=== PATIENT | female | born 1965 | race African-American/Black ===

== ENCOUNTER 2016-07-11 17:25 | Inpatient (IN) | payer BC, OTHER ==
[~2016-07-11] VITALS: Ht 162.6 cm; Wt 106.3 kg
[~2016-07-11 17:25] MED LIST: ASPI-630 PO; CRESTOR40 MG PO; FISH1CAP PO; LOSA25TA4 PO; MUSCLE RELAXANT; NITR0.4T22 SL; SERT50TA8 PO; VITA100T5 PO
--- NOTE | 2016-07-11 17:47 | RAD ---
PROCEDURE CT head without contrast dated 07/11/2016. HISTORY Numbness to both hands. Left facial numbness for 24 hours. Possible CVA. TECHNIQUE Contiguous axial imaging of the head was performed from skull base to vertex. No contrast administered.Exposure: One or more of the following individualized dose reduction techniques were utilized for this exam: 1. Automated exposure control. 2. Adjustment of the mA and/or kV according to patient size. 3. Use of iterative reconstruction technique. COMPARISON None. FINDINGS Ventricles and sulci are within normal limits for age. No midline shift or mass effect. Brain parenchyma is of normal attenuation. No hemorrhage or extra-axial collection. Posterior fossa and brainstem are unremarkable. Visualized paranasal sinuses and mastoid air cells are clear. No acute calvarial abnormality. No hyperdense vessels are seen. Insular ribbons are symmetric. IMPRESSION - No evidence of acute intracranial hemorrhage or mass. - No CT evidence of acute CVA. If there is persistent clinical concern for evolving infarct, MRI would better evaluate. Electronically signed by: Michele Aguilar (July 11, 2016 17:46:04)
[2016-07-11] MEDS ORDERED: IV NORMAL SALINE 1000ML BAG 1,000 ML IV ONE (18:00)
--- NOTE | 2016-07-11 18:06 | PHYS DOC ---
Past Medical History Past Medical History: Arrhythmia, Hypertension Additional Past Medical Histor: Bundle Branch Block Past Surgical History: Hysterectomy Additional Past Surgical Histo: hernia, bladder Alcohol Use: None Drug Use: None Adult General Chief Complaint Chief Complaint: NEURO SYMPTOMS/DEFICITS HPI HPI This is a 51-year-old female who's having subjective symptoms of numbness in both of her upper extremities as well as the left side of her face. She denies any significant weakness. She does have some dizziness and lightheadedness as well. All her symptoms started approximately 30-40 minutes prior to arrival. She did state she had an episode that was similar to this that lasted approximately 10 minutes yesterday. She denies any chest pain with her symptoms. She denies any significant weakness in any of her extremities. Review of Systems Review of Systems Constitutional: Denies fever or chills [] Eyes: Denies change in visual acuity, redness, or eye pain [] HENT: Denies nasal congestion or sore throat [] Respiratory: Denies cough or shortness of breath [] Cardiovascular: No additional information not addressed in HPI [] GI: Denies abdominal pain, nausea, vomiting, bloody stools or diarrhea [] : Denies dysuria or hematuria [] Musculoskeletal: Denies back pain or joint pain [] Integument: Denies rash or skin lesions [] Neurologic: Denies headache, denies focal weakness, has sensory changes [] Endocrine: Denies polyuria or polydipsia [] Current Medications Current Medications Current Medications Medications (Trade) Dose Ordered Sig/[facility] Start Time Stop Time Status Last Admin Dose Admin Aspirin (Jordy Aspirin) 325 mg 1X ONCE 07/11/16 18:45 07/11/16 18:46 DC 07/11/16 18:50 325 MG Meclizine HCl (Antivert) 50 mg 1X ONCE 07/11/16 18:45 07/11/16 18:46 DC 07/11/16 18:50 50 MG Ondansetron HCl (Zofran) 4 mg PRN Q8HRS PRN 07/11/16 19:00 07/12/16 18:59 Sodium Chloride 1,000 ml @ 125 mls/hr Q8H 07/11/16 18:54 07/12/16 18:53 07/11/16 20:26 125 MLS/HR Allergies Allergies Physical Exam Physical Exam Constitutional: Well developed, well nourished, no acute distress, non-toxic appearance. [] HENT: Normocephalic, atraumatic, bilateral external ears normal, oropharynx moist, no oral exudates, nose normal. [] Eyes: PERRLA, EOMI, conjunctiva normal, no discharge. [] Neck: Normal range of motion, no tenderness, supple, no stridor. [] Cardiovascular:Heart rate regular rhythm, no murmur [] Lungs & Thorax: Bilateral breath sounds clear to auscultation [] Abdomen: Bowel sounds normal, soft, no tenderness, no masses, no pulsatile masses. [] Skin: Warm, dry, no erythema, no rash. [] Back: No tenderness, no CVA tenderness. [] Extremities: No tenderness, no cyanosis, no clubbing, ROM intact, no edema. [] Neurologic: Alert and oriented X 3, normal motor function, normal sensory function, no focal deficits noted. [] Psychologic: Affect normal, judgement normal, mood normal. [] Current Patient Data Vital Signs Vital Signs Date Time Temp Pulse Resp B/P (MAP) Pulse Ox O2 Delivery O2 Flow Rate FiO2 07/11/16 18:49 88 20 147/74 (98) 96 Room Air 07/11/16 17:40 98.8 98.8 Lab Values Laboratory Tests Test 07/11/16 17:46 07/11/16 18:07 Glucose (Fingerstick) 118 mg/dL (70-99) H White Blood Count 7.5 x10^3/uL (4.0-11.0) Red Blood Count 4.40 x10^6/uL (3.50-5.40) Hemoglobin 12.4 g/dL (12.0-15.5) Hematocrit 36.8 % (36.0-47.0) Mean Corpuscular Volume 84 fL (79-100) Mean Corpuscular Hemoglobin 28 pg (25-35) Mean Corpuscular Hemoglobin Concent 34 g/dL (31-37) Red Cell Distribution Width 13.9 % (11.5-14.5) Platelet Count 198 x10^3/uL (140-400) Neutrophils (%) (Auto) 61 % (31-73) Lymphocytes (%) (Auto) 33 % (24-48) Monocytes (%) (Auto) 4 % (0-9) Eosinophils (%) (Auto) 1 % (0-3) Basophils (%) (Auto) 1 % (0-3) Neutrophils # (Auto) 4.6 x10^3uL (1.8-7.7) Lymphocytes # (Auto) 2.4 x10^3/uL (1.0-4.8) Monocytes # (Auto) 0.3 x10^3/uL (0.0-1.1) Eosinophils # (Auto) 0.1 x10^3/uL (0.0-0.7) Basophils # (Auto) 0.1 x10^3/uL (0.0-0.2) Sodium Level 141 mmol/L (136-145) Potassium Level 3.8 mmol/L (3.5-5.1) Chloride Level 106 mmol/L (98-107) Carbon Dioxide Level 26 mmol/L (21-32) Anion Gap 9 (6-14) Blood Urea Nitrogen 14 mg/dL (7-20) Creatinine 1.0 mg/dL (0.6-1.0) Estimated GFR (Cockcroft-Gault) 70.2 Glucose Level 116 mg/dL (70-99) H Calcium Level 9.4 mg/dL (8.5-10.1) Troponin I Quantitative < 0.017 ng/mL (0.000-0.055) Laboratory Tests 07/11/16 18:07 Laboratory Tests 07/11/16 18:07 EKG EKG EKG as interpreted by me shows a sinus rhythm with rate of 97 bpm. There is no acute injury pattern. There is a non-specific intraventricular block. QTc interval is slightly prolonged at 490 ms. Radiology/Procedures Radiology/Procedures PROCEDURE CT head without contrast dated 07/11/2016. HISTORY Numbness to both hands. Left facial numbness for 24 hours. Possible CVA. TECHNIQUE Contiguous axial imaging of the head was performed from skull base to vertex. No contrast administered.Exposure: One or more of the following individualized dose reduction techniques were utilized for this exam: 1. Automated exposure control. 2. Adjustment of the mA and/or kV according to patient size. 3. Use of iterative reconstruction technique. COMPARISON None. FINDINGS Ventricles and sulci are within normal limits for age. No midline shift or mass effect. Brain parenchyma is of normal attenuation. No hemorrhage or extra-axial collection. Posterior fossa and brainstem are unremarkable. Visualized paranasal sinuses and mastoid air cells are clear. No acute calvarial abnormality. No hyperdense vessels are seen. Insular ribbons are symmetric. IMPRESSION - No evidence of acute intracranial hemorrhage or mass. - No CT evidence of acute CVA. If there is persistent clinical concern for evolving infarct, MRI would better evaluate. Portable one view of the chest as interpreted by me reveals no acute cardiopulmonary process. Course & Med Decision Making Course & Med Decision Making Pertinent Labs and Imaging studies reviewed. (See chart for details) This 51-year-old female who came in as an acute stroke alert and numbness to her bilateral upper extremities and left side of her face has a CT of her head that did not reveal any acute abnormality. Her NIH scale was 0. I do not deem her to be a TPA candidate in light of her physical exam findings. She will be admitted with neurology consult for her persisting numbness in her upper extremities. Her EKG and chest film were unremarkable. Laboratory workup was also essentially unremarkable. Patient was given a 325 mg aspirin and meclizine. Neurology consult was placed. I discussed the case with the admitting physician, Dr. Obey Azevedo, who agreed with this assessment and plan and agreed to accept the patient for further evaluation. Dragon Disclaimer Dragon Disclaimer This electronic medical record was generated, in whole or in part, using a voice recognition dictation system. Departure Departure Impression: Primary Impression: Paresthesia Additional Impression: Headache Disposition: ADMITTED INPATIENT Admitting Physician: Obey Azevedo Condition: STABLE Referrals: OBEY AZEVEDO MD (PCP) Problem Qualifiers BETSY HURTADO DO July 11, 2016 18:06
[2016-07-11 18:22] LABS: BASO # 0.1 x10^3/uL (0.0-0.2); BASO % 1 % (0-3); EOS % 1 % (0-3); HEMATOCRIT 36.8 % (36.0-47.0); HEMOGLOBIN 12.4 g/dL (12.0-15.5); LYMPH # 2.4 x10^3/uL (1.0-4.8); LYMPH % 33 % (24-48); MEAN CORPUSCULAR HEMOGLOBIN 28 pg (25-35); MEAN CORPUSCULAR HGB CONC 34 g/dL (31-37); MEAN CORPUSCULAR VOLUME 84 fL (79-100); MONO % 4 % (0-9); NEUT % 61 % (31-73); PLATELET COUNT 198 x10^3/uL (140-400); RED CELL DISTRIBUTION WIDTH 13.9 % (11.5-14.5); WHITE BLOOD COUNT 7.5 x10^3/uL (4.0-11.0)
[2016-07-11 18:26] LABS: CALCIUM 9.4 mg/dL (8.5-10.1); GFR 70.2; POTASSIUM 3.8 mmol/L (3.5-5.1)
[2016-07-11] MEDS ORDERED: MECLIZINE HCL 12.5 MG TABLET. PO ONE (18:45)
[2016-07-11] MEDS ORDERED: ASPIRIN 325 MG TABLET PO ONE (18:45)
[2016-07-11] MEDS ORDERED: ONDANSETRON PF 4 MG/2 ML VIAL. IV PRN (19:00)
[2016-07-11] MEDS ORDERED: ZIPR20CA2 PO (19:59)
[2016-07-11] MEDS ORDERED: LAMO100T PO (19:59)
[2016-07-11] MEDS ORDERED: DULO60CA6 PO (19:59)
[2016-07-11] MEDS ORDERED: FLUT16SP NS (19:59)
[2016-07-11] MEDS ORDERED: ATOR20TA58 PO (19:59)
[2016-07-11 20:00] VITALS: BP 135/81
[2016-07-11] MEDS ORDERED: IBUPROFEN 400 MG TABLET. PO PRN (20:15)
[2016-07-11] MEDS: IV NORMAL SALINE 1000ML BAG 1,000 ML IV SCH (20:26)
[2016-07-11] MEDS ORDERED: ATORVASTATIN CALCIUM 20 MG TABLET PO SCH (21:00)
[2016-07-11 23:00] VITALS: BP 106/67
[2016-07-12] MEDS: IV NORMAL SALINE 1000ML BAG 1,000 ML IV SCH (02:54)
[2016-07-12 03:00] VITALS: BP 118/65
[2016-07-12 05:16] LABS: BASO # 0.1 x10^3/uL (0.0-0.2); BASO % 1 % (0-3); EOS % 3 % (0-3); HEMATOCRIT 33.7 % (36.0-47.0); HEMOGLOBIN 11.3 g/dL (12.0-15.5); LYMPH # 2.3 x10^3/uL (1.0-4.8); LYMPH % 41 % (24-48); MEAN CORPUSCULAR HEMOGLOBIN 28 pg (25-35); MEAN CORPUSCULAR HGB CONC 33 g/dL (31-37); MEAN CORPUSCULAR VOLUME 85 fL (79-100); MONO % 5 % (0-9); NEUT % 51 % (31-73); PLATELET COUNT 172 x10^3/uL (140-400); RED BLOOD COUNT 3.97 x10^6/uL (3.50-5.40); RED CELL DISTRIBUTION WIDTH 13.9 % (11.5-14.5); WHITE BLOOD COUNT 5.7 x10^3/uL (4.0-11.0)
[2016-07-12 05:42] LABS: CALCIUM 8.3 mg/dL (8.5-10.1); CREATININE 0.9 mg/dL (0.6-1.0); GFR 79.3; POTASSIUM 4.1 mmol/L (3.5-5.1)
--- NOTE | 2016-07-12 06:16 | EKG ---
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
[2016-07-12 07:00] VITALS: BP 111/63
[2016-07-12] MEDS ORDERED: NITROGLYCERIN SUBLINGUAL 0.4 MG BOTTLE OF 25. SL PRN (08:00)
--- NOTE | 2016-07-12 08:17 | DISCH ---
DISCHARGE INSTRUCTIONS Condition on Discharge Condition on Discharge: Stable Activity After Discharge Activity Instructions for Disc: No restrictions Diet after Discharge Diet after Discharge: Regular Follow-Up Follow up with: 1-2 weeks JANAK WADDELL MD July 12, 2016 08:17
--- NOTE | 2016-07-12 08:22 | PDOC ---
Provider Note Provider Note [id number] JANAK WADDELL MD July 12, 2016 08:22
[2016-07-12] MEDS ORDERED: LOSARTAN POTASSIUM 25 MG TABLET. PO SCH (09:00)
[2016-07-12] MEDS ORDERED: FLUTICASONE 50MCG/NASAL SPRAY 16GM BOTTLE. NS SCH (09:00)
[2016-07-12] MEDS ORDERED: ASPIRIN CHEWABLE 81 MG TABLET. PO SCH (09:00)
[2016-07-12] MEDS ORDERED: DULoxetine HCL 30 MG CAPSULE.DR PO SCH (09:00)
[2016-07-12] MEDS ORDERED: SERTRALINE 50 MG TABLET. PO SCH (09:00)
[2016-07-12] MEDS ORDERED: lamoTRIgine 100 MG TABLET. PO SCH (09:00)
--- NOTE | 2016-07-12 09:00 | RAD ---
EXAM: CHEST 1 VIEW History: Strokelike symptoms COMPARISON: 01/01/2014 TECHNIQUE: Single portable radiograph of the chest FINDINGS: The cardiac silhouette is unremarkable. The lungs are clear bilaterally. The costophrenic sulci are clear and well demarcated. IMPRESSION: No radiographic evidence of an acute cardiopulmonary process.
--- NOTE | 2016-07-12 09:20 | SSS ---
ADMIT DATE: 07/12/2016 CHIEF COMPLAINT: Headache and tingling in both hands. HISTORY OF PRESENT ILLNESS: A 51-year-old black female with history of bipolar disorder and mild hypertension who came in with some tingling and numbness in both hands on and off over the last several hours. There was a little bit of numbness in the left side of the face at times and also some tension-type headache that she has had for several days. Physical exam was unremarkable. CT scan of the head was normal as was the CBC and chemistry profile and cardiac enzymes. The symptoms came and went, and she is feeling better this morning without any specific neurologic symptoms, and sensory exam was normal. This was not felt to be related to acute stroke or intracranial process, though more likely carpal tunnel, and she is comfortable to be followed as an outpatient. FINAL DIAGNOSES: 1. Bilateral paresthesias of the hands, suspected carpal tunnel syndrome. 2. Bilateral headache, felt to be tension headache. OPERATIONS, PROCEDURES, COMPLICATIONS, AND CONSULTATIONS: None. DISPOSITION: She will be seen in our office in 1-2 weeks for evaluation for possible carpal tunnel symptoms. She will stop taking the daily aspirin as she has greater risk than benefit, having never had a heart attack, stroke, or TIA and is a nondiabetic and nonsmoker. Again, the CT scan of the head was normal. Regular diet with no added salt. She will follow blood pressure as an outpatient as she may no longer need the losartan that she takes. Prognosis is good. JANAK WADDELL MD DR: NAGI/samra JOB#: [id number] / [id number]
[2016-07-12 11:00] VITALS: BP 116/70
--- NOTE | 2016-07-12 11:56 | PDOC2 ---
NEUROLOGY CONSULT Date of Admission Date of Admission DATE: 07/12/16 TIME: 11:50 Reason for Consult Reason for Consult: Paresthesias Referring Physician Referring Physician: Dr. Azevedo Source Source: Chart review, Patient History of Present Illness History of Present Illness The patient is a 51-year-old right-handed female admitted with symptoms of left facial numbness and bilateral hands and feet numbness which started 2 nights ago. She denies headache, diplopia, dysphagia, dysarthria, cognitive problems, history of stroke, seizure, or head injury. She is feeling better this morning. Past Medical History Cardiovascular: HTN, Other ( angina, hypotension) CENTRAL NERVOUS SYSTEM: Migraine (More tension headaches, than migraines) GI: GERD, Hemorrhoids Psych: Anxiety, Depression Past Surgical History Past Surgical History: Hernia Repair ( umbilical), Hysterectomy, Other ( rectal ) Family History Family History: No pertinent hx Social History Social History , no tobacco or alcohol Current Medications Current Medications Current Medications Sodium Chloride 1,000 ml @ 1,000 mls/hr 1X ONCE IV Last administered on 18:28; Start 07/11/16 at 18:00; Stop 07/12/16 at 08:00; Status DC Aspirin (Jordy Aspirin) 325 mg 1X ONCE PO Last administered on 07/11/16 18:50 ; Start 07/11/16 at 18:45; Stop 07/11/16 at 18:46; Status DC Meclizine HCl (Antivert) 50 mg 1X ONCE PO Last administered on 07/11/16 18:50 ; Start 07/11/16 at 18:45; Stop 07/11/16 at 18:46; Status DC Ondansetron HCl (Zofran) 4 mg PRN Q8HRS PRN IV NAUSEA/VOMITING; Start 07/11/16 at 19:00; Stop 07/12/16 at 18:59 Sodium Chloride 1,000 ml @ 125 mls/hr Q8H IV Last administered on 07/12/16 02 :54; Start 07/11/16 at 18:54; Stop 07/12/16 at 08:00; Status DC Atorvastatin Calcium (Lipitor) 20 mg QHS PO ; Start 07/11/16 at 21:00 Fluticasone Propionate (Flonase) 2 spray DAILY NS Last administered on 08:00; Start 07/12/16 at 09:00 Lamotrigine (LaMICtal) 100 mg DAILY PO Last administered on 07/12/16 08:00; Start 07/12/16 at 09:00 Ziprasidone (Geodon) 20 mg DAILYWSUP PO ; Start 07/12/16 at 17:00 Duloxetine HCl (Cymbalta) 60 mg DAILY PO Last administered on 07/12/16 08:00; Start 07/12/16 at 09:00 Ibuprofen (Motrin) 400 mg PRN Q6HRS PRN PO INFLAMMATION Last administered on 11:28; Start 07/11/16 at 20:15 Aspirin (Children'S Aspirin) 81 mg DAILY PO ; Start 07/12/16 at 09:00 Losartan Potassium (Cozaar) 25 mg DAILY PO ; Start 07/12/16 at 09:00 Nitroglycerin (Nitrostat) 0.4 mg PRN Q5MIN PRN SL CHEST PAIN; Start 07/12/16 at 08:00 Sertraline HCl (Zoloft) 50 mg DAILY PO ; Start 07/12/16 at 09:00 Active Scripts Active Reported Fluticasone Propionate Nasal [place] (Fluticasone Propionate) 16 Gm [place].susp 2 [place] NS DAILY Lamotrigine 100 Mg Tablet 1 Tab PO DAILY Geodon (Ziprasidone Hcl) 20 Mg Capsule 1 Cap PO DAILYWSUP Cymbalta (Duloxetine Hcl) 60 Mg Capsule.dr 1 Cap PO DAILY Atorvastatin Calcium 20 Mg Tablet 1 Tab PO DAILY Crestor (Rosuvastatin Calcium) 40 Mg Tablet 40 Mg PO HS [Muscle Relaxant] PRN PRN Sertraline Hcl 50 Mg Tablet 50 Mg PO DAILY Fish Oil 1,200 Mg Fish Oil (Fish Oil/Dha/Epa) 1 Each Capsule 1 Each PO QID Vitamin E (Vitamin E Acid Succinate) 100 Unit Tablet 100 Unit PO DAILY Aspirin 81 Mg Tab.chew 81 Mg PO DAILY NITROGLYCERIN SubLingual (Nitroglycerin) 0.4 Mg Tab.subl 0.4 Mg SL PRN Q5MIN PRN Losartan Potassium 25 Mg Tablet 25 Mg PO DAILY Allergies Allergies: Coded Allergies: No Known Drug Allergies (Unverified , 07/11/16) ROS Review of System Negative for fevers, chills, weight loss, shortness of breath, chest pain, indigestion, hematochezia, melena, dysuria. Full 14-point review systems is negative. Physical Exam Physical Examination PHYSICAL EXAMINATION: Vital signs: see above. General appearance is normal and in no acute distress. HEENT: Normocephalic and nontraumatic. Eyes, nose, ears, and throat are unremarkable. Neck is supple. No lymphadenopathy. No bruits are heard over the carotid artery. No crepitus. NEUROLOGICAL EXAMINATION: Mental Status Examination: Alert. Oriented to time, place, and person. Answers questions and follows commends. Pupils are equal round and reactive to light and accommodation. Extraocular movements are intact. Visual field exam shows no defect on the direct confrontation. No motor or sensory deficits on the facial exam. Uvula in the midline and the soft palate elevated symmetrically. No deviation of the tongue to any direction. Gross hearing is normal. Shoulder shrug normal. Muscle tone is normal. Muscle strength is 5. Deep tendon reflexes are 2+ all around. Plantar reflex is with flexion response bilaterally. Voniqk-ab-vkoj test performance is accurate. Tandem walk test is accurate. Alternative movements are accurate. Romberg test is negative. Gait is normal. Sensory exam shows no deficits. No cerebellar signs are elicited. Vitals VITALS Vital Signs Date Time Temp Pulse Resp B/P (MAP) Pulse Ox O2 Delivery O2 Flow Rate FiO2 07/12/16 08:00 Room Air 07/12/16 07:00 97.7 76 17 111/63 (79) 99 97.7 Labs Labs Laboratory Tests Test 07/11/16 17:46 07/11/16 18:07 07/12/16 04:50 Glucose (Fingerstick) 118 mg/dL (70-99) White Blood Count 7.5 x10^3/uL (4.0-11.0) 5.7 x10^3/uL (4.0-11.0) Red Blood Count 4.40 x10^6/uL (3.50-5.40) 3.97 x10^6/uL (3.50-5.40) Hemoglobin 12.4 g/dL (12.0-15.5) 11.3 g/dL (12.0-15.5) Hematocrit 36.8 % (36.0-47.0) 33.7 % (36.0-47.0) Mean Corpuscular Volume 84 fL (79-100) 85 fL (79-100) Mean Corpuscular Hemoglobin 28 pg (25-35) 28 pg (25-35) Mean Corpuscular Hemoglobin Concent 34 g/dL (31-37) 33 g/dL (31-37) Red Cell Distribution Width 13.9 % (11.5-14.5) 13.9 % (11.5-14.5) Platelet Count 198 x10^3/uL (140-400) 172 x10^3/uL (140-400) Neutrophils (%) (Auto) 61 % (31-73) 51 % (31-73) Lymphocytes (%) (Auto) 33 % (24-48) 41 % (24-48) Monocytes (%) (Auto) 4 % (0-9) 5 % (0-9) Eosinophils (%) (Auto) 1 % (0-3) 3 % (0-3) Basophils (%) (Auto) 1 % (0-3) 1 % (0-3) Neutrophils # (Auto) 4.6 x10^3uL (1.8-7.7) 2.9 x10^3uL (1.8-7.7) Lymphocytes # (Auto) 2.4 x10^3/uL (1.0-4.8) 2.3 x10^3/uL (1.0-4.8) Monocytes # (Auto) 0.3 x10^3/uL (0.0-1.1) 0.3 x10^3/uL (0.0-1.1) Eosinophils # (Auto) 0.1 x10^3/uL (0.0-0.7) 0.1 x10^3/uL (0.0-0.7) Basophils # (Auto) 0.1 x10^3/uL (0.0-0.2) 0.1 x10^3/uL (0.0-0.2) Sodium Level 141 mmol/L (136-145) 143 mmol/L (136-145) Potassium Level 3.8 mmol/L (3.5-5.1) 4.1 mmol/L (3.5-5.1) Chloride Level 106 mmol/L (98-107) 111 mmol/L (98-107) Carbon Dioxide Level 26 mmol/L (21-32) 22 mmol/L (21-32) Anion Gap 9 (6-14) 10 (6-14) Blood Urea Nitrogen 14 mg/dL (7-20) 13 mg/dL (7-20) Creatinine 1.0 mg/dL (0.6-1.0) 0.9 mg/dL (0.6-1.0) Estimated GFR (Cockcroft-Gault) 70.2 79.3 Glucose Level 116 mg/dL (70-99) 88 mg/dL (70-99) Calcium Level 9.4 mg/dL (8.5-10.1) 8.3 mg/dL (8.5-10.1) Troponin I Quantitative < 0.017 ng/mL (0.000-0.055) Laboratory Tests Test 07/11/16 17:46 07/11/16 18:07 07/12/16 04:50 Glucose (Fingerstick) 118 mg/dL (70-99) White Blood Count 7.5 x10^3/uL (4.0-11.0) 5.7 x10^3/uL (4.0-11.0) Red Blood Count 4.40 x10^6/uL (3.50-5.40) 3.97 x10^6/uL (3.50-5.40) Hemoglobin 12.4 g/dL (12.0-15.5) 11.3 g/dL (12.0-15.5) Hematocrit 36.8 % (36.0-47.0) 33.7 % (36.0-47.0) Mean Corpuscular Volume 84 fL (79-100) 85 fL (79-100) Mean Corpuscular Hemoglobin 28 pg (25-35) 28 pg (25-35) Mean Corpuscular Hemoglobin Concent 34 g/dL (31-37) 33 g/dL (31-37) Red Cell Distribution Width 13.9 % (11.5-14.5) 13.9 % (11.5-14.5) Platelet Count 198 x10^3/uL (140-400) 172 x10^3/uL (140-400) Neutrophils (%) (Auto) 61 % (31-73) 51 % (31-73) Lymphocytes (%) (Auto) 33 % (24-48) 41 % (24-48) Monocytes (%) (Auto) 4 % (0-9) 5 % (0-9) Eosinophils (%) (Auto) 1 % (0-3) 3 % (0-3) Basophils (%) (Auto) 1 % (0-3) 1 % (0-3) Neutrophils # (Auto) 4.6 x10^3uL (1.8-7.7) 2.9 x10^3uL (1.8-7.7) Lymphocytes # (Auto) 2.4 x10^3/uL (1.0-4.8) 2.3 x10^3/uL (1.0-4.8) Monocytes # (Auto) 0.3 x10^3/uL (0.0-1.1) 0.3 x10^3/uL (0.0-1.1) Eosinophils # (Auto) 0.1 x10^3/uL (0.0-0.7) 0.1 x10^3/uL (0.0-0.7) Basophils # (Auto) 0.1 x10^3/uL (0.0-0.2) 0.1 x10^3/uL (0.0-0.2) Sodium Level 141 mmol/L (136-145) 143 mmol/L (136-145) Potassium Level 3.8 mmol/L (3.5-5.1) 4.1 mmol/L (3.5-5.1) Chloride Level 106 mmol/L (98-107) 111 mmol/L (98-107) Carbon Dioxide Level 26 mmol/L (21-32) 22 mmol/L (21-32) Anion Gap 9 (6-14) 10 (6-14) Blood Urea Nitrogen 14 mg/dL (7-20) 13 mg/dL (7-20) Creatinine 1.0 mg/dL (0.6-1.0) 0.9 mg/dL (0.6-1.0) Estimated GFR (Cockcroft-Gault) 70.2 79.3 Glucose Level 116 mg/dL (70-99) 88 mg/dL (70-99) Calcium Level 9.4 mg/dL (8.5-10.1) 8.3 mg/dL (8.5-10.1) Troponin I Quantitative < 0.017 ng/mL (0.000-0.055) Images Images CT head: Ventricles and sulci are within normal limits for age. No midline shift or mass effect. Brain parenchyma is of normal attenuation. No hemorrhage or extra-axial collection. Posterior fossa and brainstem are unremarkable. Visualized paranasal sinuses and mastoid air cells are clear. No acute calvarial abnormality. No hyperdense vessels are seen. Insular ribbons are symmetric. IMPRESSION - No evidence of acute intracranial hemorrhage or mass. - No CT evidence of acute CVA. If there is persistent clinical concern for evolving infarct, MRI would better evaluate. MRI brain images reviewed, no acute abnormalities, radiology interpretation pending Assessment/Plan Assessment/Plan Impression: Paresthesias in the hands and feet are non-localizing, but then she also had the numbness in the left face. Examination is negative as our imaging studies. Differential diagnosis includes peripheral nerve disease such as neuropathy, local nerve entrapment in both the hands and feet, anxiety, and migraine phenomenon. Recommendations: Agree with discharge Consider EMG studies if symptoms persist Otherwise follow up with me as needed. Thank you for letting me help with the patient's care. HEBERT CHENG MD July 12, 2016 11:56
[2016-07-12 12:50] VITALS: BP 116/70
--- NOTE | 2016-07-12 12:53 | RAD ---
PROCEDURE MRI of the brain without contrast 07/12/2016 HISTORY Paresthesias. Numbness of both hands. Left facial numbness. TECHNIQUE Unenhanced T1 weighted sagittal and axial, T2 weighted axial and coronal and FLAIR, gradient echo and diffusion weighted axial images of the brain were obtained. FINDINGS Comparison is made to the patient's CT scan of the head dated 07/11/2016. The ventricles and sulci are within normal limits in size and configuration. No area of significant abnormal signal intensity is seen involving brain parenchyma. No extra-axial fluid collection is seen. There is no MRI evidence of acute ischemia/infarction. Mild mucosal thickening is seen throughout the paranasal sinuses. Normal flow voids are seen within the major vascular structures surrounding the brain parenchyma. IMPRESSION 1. Negative MRI of the brain. 2. Mild paranasal sinus disease. Electronically signed by: Jeronimo Gonzalez MD (July 12, 2016 12:52:07)
[2016-07-12] MEDS ORDERED: ZIPRASIDONE 20 MG CAPSULE PO SCH (17:00)
== END 2016-07-12 13:30 | disposition home or self-care (01) | DRG 74 ==
LOC: ER 19:00 → 5 NORTH 19:06
PROVIDERS: ADMIT Family Medicine; ATTEND Family Medicine
DX: G56.00 Carpal tunnel syndrome, unspecified upper limb (principal); F41.9 Anxiety disorder, unspecified; G44.209 Tension-type headache, unspecified, not intractable; I10 Essential (primary) hypertension; F31.9 Bipolar disorder, unspecified; K21.9 Gastro-esophageal reflux disease without esophagitis; G43.909 Migraine, unspecified, not intractable, without status migrainosus; Z90.710 Acquired absence of both cervix and uterus
CPT/HCPCS: 36415; 70450; 70551; 71010; 80048; 82962; 84484; 85027; 93005; 96360; J7030; J8597; 99285-25

== ENCOUNTER 2016-12-13 15:11 | Inpatient (IN) | payer BC ==
[~2016-12-13] VITALS: Ht 162.6 cm; Wt 107.7 kg
[~2016-12-13 15:11] MED LIST changes: +ATOR20TA58 PO; +DULO60CA6 PO; +FLUT16SP NS; +LAMO100T PO; +ZIPR20CA2 PO
[2016-12-13] MEDS ORDERED: IV NORMAL SALINE 1000ML BAG 1,000 ML IV ONE (16:15)
[2016-12-13] MEDS ORDERED: ONDANSETRON PF 4 MG/2 ML VIAL. IV ONE (16:15)
[2016-12-13] MEDS ORDERED: MECLIZINE HCL 12.5 MG TABLET. PO ONE (16:15)
--- NOTE | 2016-12-13 16:19 | EKG ---
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
[2016-12-13 16:27] LABS: BASO % 1 % (0-3); EOS % 1 % (0-3); HEMATOCRIT 39.5 % (36.0-47.0); HEMOGLOBIN 12.8 g/dL (12.0-15.5); LYMPH # 1.7 x10^3/uL (1.0-4.8); LYMPH % 23 % (24-48); MEAN CORPUSCULAR HEMOGLOBIN 28 pg (25-35); MEAN CORPUSCULAR HGB CONC 33 g/dL (31-37); MEAN CORPUSCULAR VOLUME 87 fL (79-100); MONO % 4 % (0-9); NEUT % 72 % (31-73); PLATELET COUNT 213 x10^3/uL (140-400); RED BLOOD COUNT 4.56 x10^6/uL (3.50-5.40); RED CELL DISTRIBUTION WIDTH 14.9 % (11.5-14.5); WHITE BLOOD COUNT 7.4 x10^3/uL (4.0-11.0)
[2016-12-13 16:38] LABS: CALCIUM 9.3 mg/dL (8.5-10.1); CREATININE 0.8 mg/dL (0.6-1.0); GFR 90.8; POTASSIUM 3.7 mmol/L (3.5-5.1)
[2016-12-13 16:43] LABS: ALBUMIN 3.8 g/dL (3.4-5.0); ALBUMIN/GLOBULIN RATIO 1.1 (1.0-1.7); TOTAL BILIRUBIN 0.5 mg/dL (0.2-1.0); TOTAL PROTEIN 7.3 g/dL (6.4-8.2)
--- NOTE | 2016-12-13 17:05 | RAD ---
Indication dizzy since yesterday. Axial noncontrast images of the head were obtained. Note is made of a previous examination 07/11/2016. The calvarium appears unremarkable. The visualized paranasal sinuses appear normal. No subdural or epidural hematoma is seen. There is no mass or midline shift. No hemorrhage is seen. Acute intracranial finding or significant change when compared to the previous exam is not seen. IMPRESSION: No acute intracranial finding is seen. PQRS Compliance Statement: One or more of the following individualized dose reduction techniques were utilized for this examination: 1. Automated exposure control 2. Adjustment of the mA and/or kV according to patient size 3. Use of iterative reconstruction technique
[2016-12-13 17:09] LABS: BILIRUBIN,URINE NEGATIVE (NEG); GLUCOSE,URINE NEGATIVE (NEG); NITRITE,URINE NEGATIVE (NEG); PROTEIN,URINE NEGATIVE (NEG-TRACE); UROBILINOGEN,URINE 0.2 mg/dL (0.2 mg/dL)
[2016-12-13 17:18] LABS: BACTERIA,URINE 0 /HPF (0-FEW); RBC,URINE 0 /HPF (0-2); SQUAMOUS EPITHELIAL CELL,UR FEW /LPF; WBC,URINE OCC /HPF (0-4)
--- NOTE | 2016-12-13 17:38 | PHYS DOC ---
Past Medical History Past Medical History: Arrhythmia, Hypertension, Other Additional Past Medical Histor: LBBB,BORDERLINE DM,VERTIGO Past Surgical History: Hysterectomy, Other Additional Past Surgical Histo: hernia, bladder Alcohol Use: None Drug Use: None Adult General Chief Complaint Chief Complaint: DIZZY/LIGHT HEADED HPI HPI Patient is a 51 year old F who presents with dizziness for the past 2 hours. Patient states she is a history of vertigo and this feels very similar to her previous history of vertigo. Patient states that she becomes extremely dizzy with the room spinning when she stands up however when she sits down the symptoms are almost gone. Patient has some associated nausea with no vomiting. Patient denies any fevers. Patient denies any headache or neck stiffness. Patient denies any chest pain or shortness of breath. Patient has no other complaints. Review of Systems Review of Systems GEN: Denies fevers, chills, sweats HEENT: Denies blurred vision, sore throat CV: Denies chest pain RESP: Denies shortness of air, cough GI: Nausea NEURO: dizziness MSK: Denies weakness, joint pain/swelling Current Medications Current Medications Current Medications Medications (Trade) Dose Ordered Sig/Dirk Start Time Stop Time Status Last Admin Dose Admin Meclizine HCl (Antivert) 25 mg 1X ONCE 12/13/16 16:15 12/13/16 16:16 DC 12/13/16 17:53 25 MG Ondansetron HCl (Zofran) 4 mg 1X ONCE 12/13/16 16:15 12/13/16 16:16 DC 12/13/16 17:54 4 MG Sodium Chloride 1,000 ml @ 1,000 mls/hr 1X ONCE 12/13/16 16:15 12/13/16 17:14 DC 12/13/16 17:52 1,000 MLS/HR Allergies Allergies Allergies Coded Allergies Type Severity Reaction Last Updated Verified No Known Drug Allergies 07/11/16 No Physical Exam Physical Exam GEN.: No apparent distress. Alert and oriented. HEENT: Head is normocephalic, atraumatic NECK: Supple. LUNGS: CTAB. HEART: RRR, S1, S2 present. Peripheral pulses intact ABDOMEN: Soft, nontender. Positive bowel sounds. EXTREMITIES: Without any cyanosis. NEUROLOGIC: Normal speech, normal tone, cranial nerves II through XII are grossly intact without any focal neurological deficits, normal finger to nose bilaterally, normal [id number] bilaterally PSYCHIATRIC: Normal affect, normal mood. SKIN: No ulcerations Current Patient Data Vital Signs Vital Signs Date Time Temp Pulse Resp B/P (MAP) Pulse Ox O2 Delivery O2 Flow Rate FiO2 12/13/16 18:16 71 100 12/13/16 17:48 16 12/13/16 15:20 98.3 143/76 (98) Room Air 98.3 Lab Values Laboratory Tests Test 12/13/16 15:43 12/13/16 17:00 White Blood Count 7.4 x10^3/uL (4.0-11.0) Red Blood Count 4.56 x10^6/uL (3.50-5.40) Hemoglobin 12.8 g/dL (12.0-15.5) Hematocrit 39.5 % (36.0-47.0) Mean Corpuscular Volume 87 fL (79-100) Mean Corpuscular Hemoglobin 28 pg (25-35) Mean Corpuscular Hemoglobin Concent 33 g/dL (31-37) Red Cell Distribution Width 14.9 % (11.5-14.5) H Platelet Count 213 x10^3/uL (140-400) Neutrophils (%) (Auto) 72 % (31-73) Lymphocytes (%) (Auto) 23 % (24-48) L Monocytes (%) (Auto) 4 % (0-9) Eosinophils (%) (Auto) 1 % (0-3) Basophils (%) (Auto) 1 % (0-3) Neutrophils # (Auto) 5.3 x10^3uL (1.8-7.7) Lymphocytes # (Auto) 1.7 x10^3/uL (1.0-4.8) Monocytes # (Auto) 0.3 x10^3/uL (0.0-1.1) Eosinophils # (Auto) 0.1 x10^3/uL (0.0-0.7) Basophils # (Auto) 0.0 x10^3/uL (0.0-0.2) Sodium Level 143 mmol/L (136-145) Potassium Level 3.7 mmol/L (3.5-5.1) Chloride Level 105 mmol/L (98-107) Carbon Dioxide Level 29 mmol/L (21-32) Anion Gap 9 (6-14) Blood Urea Nitrogen 14 mg/dL (7-20) Creatinine 0.8 mg/dL (0.6-1.0) Estimated GFR (Cockcroft-Gault) 90.8 BUN/Creatinine Ratio 18 (6-20) Glucose Level 121 mg/dL (70-99) H Calcium Level 9.3 mg/dL (8.5-10.1) Total Bilirubin 0.5 mg/dL (0.2-1.0) Aspartate Amino Transferase (AST) 19 U/L (15-37) Alanine Aminotransferase (ALT) 28 U/L (14-59) Alkaline Phosphatase 124 U/L (46-116) H Troponin I Quantitative < 0.017 ng/mL (0.000-0.055) Total Protein 7.3 g/dL (6.4-8.2) Albumin 3.8 g/dL (3.4-5.0) Albumin/Globulin Ratio 1.1 (1.0-1.7) Urine Collection Type Unknown Urine Color Yellow Urine Clarity Clear Urine pH 6.0 Urine Specific [place] 1.015 Urine Protein Negative mg/dL (NEG-TRACE) Urine Glucose (UA) Negative mg/dL (NEG) Urine Ketones (Stick) Negative mg/dL (NEG) Urine Blood Negative (NEG) Urine Nitrite Negative (NEG) Urine Bilirubin Negative (NEG) Urine Urobilinogen Dipstick 0.2 mg/dL (0.2 mg/dL) Urine Leukocyte Esterase Trace (NEG) Urine RBC 0 /HPF (0-2) Urine WBC Occ /HPF (0-4) Urine Squamous Epithelial Cells Few /LPF Urine Bacteria 0 /HPF (0-FEW) Urine Mucus Mod /LPF Laboratory Tests 12/13/16 15:43 Laboratory Tests 12/13/16 15:43 EKG EKG 1533: EKG shows normal sinus rhythm rate of 77 no STEMI[] Radiology/Procedures Radiology/Procedures [] Course & Med Decision Making Course & Med Decision Making Pertinent Labs and Imaging studies reviewed. (See chart for details) ED course: Patient was seen and examined in the emergency room CBC, CMP, troponin, EKG, CT scan of the head without contrast were ordered along with 4 mg Zofran and 25 mg of Antivert 1815: Patient was reevaluated and still feeling dizzy when she gets up and walks and is unable to ambulate. 1825: Discussed CC/HP/PMH with Dr. Azevedo and recommends admit to observation MDM: After reviewing the chart, CC/HPI/PMH, physical exam, [lab results], [ radiological results], I do not believe the patient has an acute stroke and tripping to her dizziness however believe this is morbidly peripheral cause to her dizziness and a central cause. I believe it's peripheral because is episodic and positional however the patient is unable to ambulate secondary to the severe dizziness therefore will admit the patient for further evaluation and management. [] Dragon Disclaimer Dragon Disclaimer This electronic medical record was generated, in whole or in part, using a voice recognition dictation system. Departure Departure Impression: Primary Impression: Dizziness Additional Impression: Vertigo Disposition: 09 ADMITTED INPATIENT Admitting Physician: Obey Azevedo Condition: STABLE Referrals: OBEY AZEVEDO MD (PCP) Problem Qualifiers JOS WOMACK DO Dec 13, 2016 17:38
[2016-12-13] MEDS ORDERED: ACETAMINOPHEN 325 MG TABLET. PO PRN (18:30)
[2016-12-13] MEDS ORDERED: ONDANSETRON PF 4 MG/2 ML VIAL. IV PRN (18:30)
[2016-12-13 20:05] VITALS: BP 143/86
[2016-12-13] MEDS ORDERED: MULT-245 PO (20:27)
[2016-12-13] MEDS ORDERED: ASPI-621 PO (20:27)
[2016-12-13] MEDS: IV NORMAL SALINE 1000ML BAG 1,000 ML IV SCH (21:32)
[2016-12-13 23:10] VITALS: BP 126/57
[2016-12-14] VITALS (8 sets, daily range): BP systolic 129–179; BP diastolic 67–101
[2016-12-14 05:13] LABS: BASO # 0.1 x10^3/uL (0.0-0.2); BASO % 1 % (0-3); EOS % 2 % (0-3); HEMATOCRIT 35.1 % (36.0-47.0); HEMOGLOBIN 11.5 g/dL (12.0-15.5); LYMPH # 2.2 x10^3/uL (1.0-4.8); LYMPH % 37 % (24-48); MEAN CORPUSCULAR HEMOGLOBIN 28 pg (25-35); MEAN CORPUSCULAR HGB CONC 33 g/dL (31-37); MEAN CORPUSCULAR VOLUME 86 fL (79-100); MONO % 7 % (0-9); NEUT % 54 % (31-73); PLATELET COUNT 190 x10^3/uL (140-400); RED BLOOD COUNT 4.07 x10^6/uL (3.50-5.40); RED CELL DISTRIBUTION WIDTH 14.9 % (11.5-14.5); WHITE BLOOD COUNT 6.1 x10^3/uL (4.0-11.0)
[2016-12-14 05:27] LABS: CALCIUM 8.7 mg/dL (8.5-10.1); CREATININE 0.8 mg/dL (0.6-1.0); GFR 90.8; POTASSIUM 3.9 mmol/L (3.5-5.1)
[2016-12-14] MEDS: IV NORMAL SALINE 1000ML BAG 1,000 ML IV SCH (07:30)
[2016-12-14] MEDS ORDERED: ASA/APAP/CAFFEINE 250/250/65MG TABLET. PO PRN (08:45)
--- NOTE | 2016-12-14 08:57 | PDOC ---
Provider Note Provider Note [id number] JANAK WADDELL MD Dec 14, 2016 08:57
--- NOTE | 2016-12-14 09:22 | HP ---
ADMIT DATE: CHIEF COMPLAINT: Vertigo. HISTORY OF PRESENT ILLNESS: A 51-year-old black female who has only hyperlipidemia and mild anxiety disorder, came in with vertigo-like dizziness, nausea and some diarrhea. This occurred about 24 hours prior to admission and was recurrent. She had a similar less severe episode 2 years ago and underwent some physical therapy with seeming resolution, but since that time, has had some what sounds like chronic tinnitus without hearing loss. She had no chest pain, headache or other complaints. CT scan of the head and all labs were within normal limits in the ER. MEDICATIONS: Include Lipitor is her only prescription. She sees a psychiatrist, but takes no meds. ALLERGIES: No allergies are known. SOCIAL HISTORY: Nonsmoker, nondrinker, single, working. FAMILY HISTORY: Unremarkable. REVIEW OF SYSTEMS: Unremarkable. OBJECTIVE: ENT: No nystagmus is seen. Pupils round and reactive. TMs and pharynx clear. NECK: No carotid bruits, nodes or thyroid enlargement. LUNGS: Clear. CARDIOVASCULAR: Regular rate. No irregular beat or murmur. ABDOMEN: Obese, soft, benign and nontender. EXTREMITIES: Within normal limits. NEUROLOGIC: Gait was not tested. Cerebellar function normal. No nystagmus is seen. Cranial nerves 2-12, motor and sensory and deep tendon reflex appeared to be intact. ASSESSMENT: Acute vertigo, seems to be improving now. Chronic tinnitus may indicate a component of Meniere disease. PLAN: Meclizine and supportive care for now. JNAAK WADDELL MD DR: NAGI/samra JOB#: [id number] / [id number]
[2016-12-14] MEDS: MECLIZINE HCL 12.5 MG TABLET. PO PRN ×2 (09:49→22:00)
[2016-12-14] MEDS: FLUTICASONE 50MCG/NASAL SPRAY 16GM BOTTLE. NS SCH (13:07)
[2016-12-14] MEDS ORDERED: ATORVASTATIN CALCIUM 20 MG TABLET PO SCH (21:00)
[2016-12-15 03:27] VITALS: BP 127/66
[2016-12-15 07:30] VITALS: BP 128/79
[2016-12-15] MEDS: FLUTICASONE 50MCG/NASAL SPRAY 16GM BOTTLE. NS SCH (08:20)
--- NOTE | 2016-12-15 08:39 | DISCH ---
DISCHARGE INSTRUCTIONS Condition on Discharge Condition on Discharge: Stable Activity After Discharge Activity Instructions for Disc: No restrictions Diet after Discharge Diet after Discharge: Low Sodium 4 gm Follow-Up Follow up with: dr hortencia Cortes w JANAK WADDELL MD Dec 15, 2016 08:39
--- NOTE | 2016-12-15 08:39 | PDOC ---
Provider Note Provider Note [id number] JANAK WADDELL MD Dec 15, 2016 08:38
--- NOTE | 2016-12-15 08:56 | DS ---
DATE OF DISCHARGE: 12/15/2016 HOSPITAL SUMMARY: A 51-year-old black female with hyperlipidemia as her only medical problems, came in with what sounds like classic onset of vertigo about 24 hours prior to admission. She had had a similar episode 2 years prior and had some physical therapy with vestibulator readjustments and since then has had a little bit of tinnitus, but no other problems. Her exam was unremarkable. No nystagmus or any central or cerebellar findings were present. CT scan of the head was normal and all laboratory studies were normal as well. Her last vertigo has lessened somewhat and meclizine seems to help and she is comfortable to be followed as an outpatient. FINAL DIAGNOSIS: Acute vertigo. OPERATIONS, PROCEDURES, COMPLICATIONS, AND CONSULTATIONS: None. DISPOSITION: Meclizine 25 mg t.i.d. p.r.n. along with home meds remaining the same. Office followup in 1 week, must consider the possibility of Meniere's disease given that she has some degree of chronic tinnitus but this does not typically change the management at this time. JANAK WADDELL MD DR: NAGI/samra JOB#: [id number] / [id number]
== END 2016-12-15 14:47 | disposition home or self-care (01) | DRG 149 ==
LOC: ER 15:11 → 6 SOUTH 18:24 → OBSVTOIN 19:13
PROVIDERS: ADMIT Family Medicine; ATTEND Family Medicine
DX: R42 Dizziness and giddiness (principal); E78.5 Hyperlipidemia, unspecified; F41.9 Anxiety disorder, unspecified; H93.19 Tinnitus, unspecified ear; I10 Essential (primary) hypertension; I44.7 Left bundle-branch block, unspecified; Z90.710 Acquired absence of both cervix and uterus
CPT/HCPCS: 36415; 70450; 80048; 80053; 81001; 84484; 85025; 87086; 93005; 96361; 96374; G0379; J2405; J7030; J8597; 99285-25

== ENCOUNTER 2016-12-22 20:24 | Emergency (ER) | payer BC ==
[~2016-12-22] VITALS: Ht 162.6 cm; Wt 103.0 kg
[~2016-12-22 20:24] MED LIST changes: +ASPI-621 PO; +MULT-245 PO
--- NOTE | 2016-12-22 21:23 | PHYS DOC ---
Past Medical History Past Medical History: Arrhythmia, Hypertension, Other Additional Past Medical Histor: LBBB,BORDERLINE DM,VERTIGO Past Surgical History: Hysterectomy, Other Additional Past Surgical Histo: hernia, bladder Alcohol Use: None Drug Use: None Adult General Chief Complaint Chief Complaint: vertigo near syncope [facility] HPI Patient is a 51 year old [female] who presents with [near syncope and vertigo while standing at [employer]; no LOC; may have fell and hit her head. Now lying still no symptoms. No headache or blurry vision. No ringing ear or decrease hearing. No neck pain. No chest pain/SOB. Recent admit with extensive workup couple weeks ago for vertigo.] Review of Systems Review of Systems Constitutional: Denies fever or chills [] Eyes: Denies change in visual acuity, redness, or eye pain [] HENT: Denies nasal congestion or sore throat [] Respiratory: Denies cough or shortness of breath [] Cardiovascular: No additional information not addressed in HPI [] GI: Denies abdominal pain, nausea, vomiting, bloody stools or diarrhea [] : Denies dysuria or hematuria [] Musculoskeletal: Denies back pain or joint pain [] Integument: Denies rash or skin lesions [] Neurologic: Denies headache, focal weakness or sensory changes [] Endocrine: Denies polyuria or polydipsia [] Current Medications Current Medications Current Medications Medications (Trade) Dose Ordered Sig/Dirk Start Time Stop Time Status Last Admin Dose Admin Lorazepam (Ativan) 0.5 mg 1X ONCE 12/22/16 21:30 12/22/16 21:31 DC 12/22/16 21:25 0.5 MG Ondansetron HCl (Zofran) 4 mg 1X ONCE 12/22/16 21:30 12/22/16 21:31 DC 12/22/16 21:25 4 MG Sodium Chloride 500 ml @ 500 mls/hr 1X ONCE 12/22/16 21:30 12/22/16 22:29 DC 12/22/16 21:24 500 MLS/HR Allergies Allergies Allergies Coded Allergies Type Severity Reaction Last Updated Verified No Known Drug Allergies 07/11/16 No Physical Exam Physical Exam Constitutional: Well developed, well nourished, no acute distress, non-toxic appearance. [] HENT: Normocephalic, atraumatic, bilateral external ears normal, oropharynx moist, no oral exudates, nose normal. [] Eyes: PERRLA, EOMI, conjunctiva normal, no discharge.no nystagmus. [] Neck: Normal range of motion, no tenderness, supple, no stridor. [] Cardiovascular:Heart rate regular rhythm, no murmur [] Lungs & Thorax: Bilateral breath sounds clear to auscultation [] Abdomen: Bowel sounds normal, soft, no tenderness, no masses, no pulsatile masses. [] Skin: Warm, dry, no erythema, no rash. [] Back: No tenderness, no CVA tenderness. [] Extremities: No tenderness, no cyanosis, no clubbing, ROM intact, no edema. [] Neurologic: Alert and oriented X 3, normal motor function, normal sensory function, no focal deficits noted. [] Psychologic: Affect normal, judgement normal, mood normal. [] Current Patient Data Vital Signs Vital Signs Date Time Temp Pulse Resp B/P (MAP) Pulse Ox O2 Delivery O2 Flow Rate FiO2 12/22/16 22:13 87 13 98 12/22/16 20:25 99.3 162/81 (108) Room Air 99.3 Lab Values Laboratory Tests Test 12/22/16 20:46 White Blood Count 7.6 x10^3/uL (4.0-11.0) Red Blood Count 4.75 x10^6/uL (4.30-5.70) Hemoglobin 13.4 g/dL (13.0-17.5) Hematocrit 41.1 % (39.0-53.0) Mean Corpuscular Volume 87 fL (79-100) Mean Corpuscular Hemoglobin 28 pg (25-35) Mean Corpuscular Hemoglobin Concent 33 g/dL (31-37) Red Cell Distribution Width 14.9 % (11.5-14.5) H Platelet Count 223 x10^3/uL (140-400) Neutrophils (%) (Auto) 60 % (31-73) Lymphocytes (%) (Auto) 32 % (24-48) Monocytes (%) (Auto) 6 % (0-9) Eosinophils (%) (Auto) 1 % (0-3) Basophils (%) (Auto) 1 % (0-3) Neutrophils # (Auto) 4.6 x10^3uL (1.8-7.7) Lymphocytes # (Auto) 2.4 x10^3/uL (1.0-4.8) Monocytes # (Auto) 0.4 x10^3/uL (0.0-1.1) Eosinophils # (Auto) 0.1 x10^3/uL (0.0-0.7) Basophils # (Auto) 0.1 x10^3/uL (0.0-0.2) Sodium Level 142 mmol/L (136-145) Potassium Level 4.1 mmol/L (3.5-5.1) Chloride Level 105 mmol/L (98-107) Carbon Dioxide Level 30 mmol/L (21-32) Anion Gap 7 (6-14) Blood Urea Nitrogen 15 mg/dL (8-26) Creatinine 0.9 mg/dL (0.7-1.3) Estimated GFR (Cockcroft-Gault) 106.8 BUN/Creatinine Ratio 17 (6-20) Glucose Level 107 mg/dL (70-99) H Calcium Level 9.6 mg/dL (8.5-10.1) Total Bilirubin 0.5 mg/dL (0.2-1.0) Aspartate Amino Transferase (AST) 20 U/L (15-37) Alanine Aminotransferase (ALT) 27 U/L (16-63) Alkaline Phosphatase 150 U/L (46-116) H Troponin I Quantitative < 0.017 ng/mL (0.000-0.055) Total Protein 7.8 g/dL (6.4-8.2) Albumin 3.9 g/dL (3.4-5.0) Albumin/Globulin Ratio 1.0 (1.0-1.7) Laboratory Tests 12/22/16 20:46 Laboratory Tests 12/22/16 20:46 EKG EKG NSR rate of 100 no stemi, LBBB old, qtc 488 my interp[] Radiology/Procedures Radiology/Procedures CT head neg per radiology[] Course & Med Decision Making Course & Med Decision Making Pertinent Labs and Imaging studies reviewed. (See chart for details) [Labs , ekg, CT unremarkable. Pt stable for outpatient follow up. patient and family comfortable w going home.] Dragon Disclaimer Dragon Disclaimer This electronic medical record was generated, in whole or in part, using a voice recognition dictation system. Departure Departure Impression: Primary Impression: Near syncope Additional Impressions: Head contusion Vertigo Disposition: HOME, SELF-CARE Condition: STABLE Referrals: JANAK WADDELL MD (PCP) Scripts Lorazepam (ATIVAN) 0.5 Mg Tablet 0.5 MG PO TID for DIZZINESS, #10 TAB Prov: JASMIN SINGER MD 12/22/16 Problem Qualifiers JASMIN SINGER MD Dec 22, 2016 21:23
[2016-12-22 21:29] LABS: BASO # 0.1 x10^3/uL (0.0-0.2); BASO % 1 % (0-3); EOS % 1 % (0-3); HEMATOCRIT 41.1 % (39.0-53.0); HEMOGLOBIN 13.4 g/dL (13.0-17.5); LYMPH # 2.4 x10^3/uL (1.0-4.8); LYMPH % 32 % (24-48); MEAN CORPUSCULAR HEMOGLOBIN 28 pg (25-35); MEAN CORPUSCULAR HGB CONC 33 g/dL (31-37); MEAN CORPUSCULAR VOLUME 87 fL (79-100); MONO % 6 % (0-9); NEUT % 60 % (31-73); PLATELET COUNT 223 x10^3/uL (140-400); RED BLOOD COUNT 4.75 x10^6/uL (4.30-5.70); RED CELL DISTRIBUTION WIDTH 14.9 % (11.5-14.5); WHITE BLOOD COUNT 7.6 x10^3/uL (4.0-11.0)
[2016-12-22] MEDS ORDERED: IV NORMAL SALINE 500ML BAG 500 ML IV ONE (21:30)
[2016-12-22] MEDS ORDERED: ONDANSETRON PF 4 MG/2 ML VIAL. IV ONE (21:30)
[2016-12-22 21:38] LABS: CALCIUM 9.6 mg/dL (8.5-10.1); CREATININE 0.9 mg/dL (0.7-1.3); GFR 106.8; POTASSIUM 4.1 mmol/L (3.5-5.1)
[2016-12-22 21:46] LABS: ALBUMIN 3.9 g/dL (3.4-5.0); TOTAL BILIRUBIN 0.5 mg/dL (0.2-1.0); TOTAL PROTEIN 7.8 g/dL (6.4-8.2)
--- NOTE | 2016-12-22 21:55 | RAD ---
CT scan of the head without contrast 12/22/2016 Clinical History: Fall with head trauma and dizziness.. Technique: Unenhanced, contiguous, 5 mm axial sections were obtained through the head. One or more of the following individualized dose reduction techniques were utilized for this study: 1. Automated exposure control. 2. Adjustment of the mA and/or kV according to patient size. 3. Use of iterative reconstruction technique. Findings: Comparison study is dated 12/13/2016. The ventricles and sulci are within normal limits in size and configuration. No focal area of abnormal attenuation is seen involving the brain parenchyma. No extra-axial fluid collection is seen. No skull fracture is seen. Impression: Negative study. Electronically signed by: Jeronimo Gonzalez MD (12/22/2016 9:52 PM) [facility]
[2016-12-22 22:13] VITALS: BP 139/71
[2016-12-22] MEDS ORDERED: LORA0.5T96 PO (22:26)
--- NOTE | 2016-12-23 07:21 | EKG ---
[facility] [address] [place] [address] Test Date: 2016-12-22 Test Time: 20:37:01 Pat Name: GABRIELLA TEJADA Department: Room: Gender: F Hog Killer: : 1965 Requested By: JASMIN SINGER Order Number: [id number] Reading MD: Ambar Jo Measurements Intervals [place] Rate: 100 P: 43 WI: 156 QRS: 4 QRSD: 124 T: 86 QT: 376 QTc: 488 Interpretive Statements SINUS RHYTHM INCOMPLETE LEFT BUNDLE BRANCH BLOCK ABNORMAL ECG Electronically Signed On 12-25-2016 15:15:36 CDT by Ambar Jo
== END 2016-12-22 22:40 | disposition home or self-care (01) ==
LOC: EDSEX 20:24 → ER 20:24
DX: S00.83XA Contusion of other part of head, initial encounter (principal); R55 Syncope and collapse; R42 Dizziness and giddiness; I10 Essential (primary) hypertension; X58.XXXA Exposure to other specified factors, initial encounter; Y93.89 Activity, other specified; Y92.22 Religious institution as the place of occurrence of the external cause; Y99.8 Other external cause status
CPT/HCPCS: 36415; 70450; 80053; 84484; 85025; 93005; 96361; 96374; 96375; 99285; J2060; J2405; J7040

== ENCOUNTER → 2017-11-16 | Outpatient (CLI) | payer OTHER ==
[~2017-11-16] MED LIST changes: +LORA0.5T96 PO; -LOSA25TA4 PO; +LOSA25TA5 PO
--- NOTE | 2017-11-16 13:54 | RAD ---
DATE: 11/16/2017 EXAM: DIGITAL DIAGNOSTIC RT, BREAST RIGHT HISTORY: Right nipple pain COMPARISON: 02/01/2017, 12/26/2014 This study was interpreted with the benefit of Computerized Aided Detection (CAD). Breast Density: SCATTERED The breast parenchyma shows scattered fibroglandular densities. Breast parenchyma level B. FINDINGS: The fibroglandular tissues anteriorly are heterogeneous. There is a small benign-appearing lymph node type density in the posterolateral aspect of the right breast which is unchanged. No new or enlarging breast densities are seen. No suspicious microcalcifications are evident. Right breast ultrasound, 11/16/2017: A targeted ultrasound exam of the right retroareolar/periareolar region was performed. Mildly prominent ducts are present in this region. No filling defect is seen within these ducts. No breast mass is identified. IMPRESSION: 1. Stable right mammograms without evidence of malignancy. 2. The targeted ultrasound exam demonstrates mild ductal ectasia without evidence of a mass. Clinical surveillance is suggested. BI-RADS CATEGORY: 2 BENIGN FINDING(S) RECOMMENDED FOLLOW-UP: 12M 12 MONTH FOLLOW-UP PQRS compliance statement: Patient information was entered into a reminder system with a target due date for the next mammogram. Mammography is a sensitive method for finding small breast cancers, but it does not detect them all and is not a substitute for careful clinical examination. A negative mammogram does not negate a clinically suspicious finding and should not result in delay in biopsying a clinically suspicious abnormality. "Our facility is accredited by the [employer] Mammography Program."
== END | disposition home or self-care (01) ==
LOC: MAMMO 12:57
PROVIDERS: ATTEND Family Medicine
DX: N60.41 Mammary duct ectasia of right breast (principal); I10 Essential (primary) hypertension; E78.5 Hyperlipidemia, unspecified; J45.909 Unspecified asthma, uncomplicated; K21.9 Gastro-esophageal reflux disease without esophagitis; Z90.710 Acquired absence of both cervix and uterus; Z87.09 Personal history of other diseases of the respiratory system; Z88.0 Allergy status to penicillin
CPT/HCPCS: 76641; 77065

== ENCOUNTER 2018-07-28 09:19 | Emergency (ER) | payer OTHER ==
[~2018-07-28] VITALS: Ht 160 cm; Wt 105.2 kg
[~2018-07-28 09:19] MED LIST changes: +CALC600T4 PO; +CETI10TA16 PO; +CYCL10TA2 PO; -LOSA25TA5 PO; +LOSA25TA54 PO; +MECL25TA3 PO; +METO-239 PO; +NAPR500T8 PO; +OMEP20TA8 PO; +TOPI25TA52 PO
[2018-07-28 10:12] LABS: BASO % 1 % (0-3); EOS # 0.1 x10^3/uL (0.0-0.7); EOS % 2 % (0-3); HEMATOCRIT 40.7 % (36.0-47.0); HEMOGLOBIN 13.3 g/dL (12.0-15.5); LYMPH # 2.4 x10^3/uL (1.0-4.8); LYMPH % 38 % (24-48); MEAN CORPUSCULAR HEMOGLOBIN 28 pg (25-35); MEAN CORPUSCULAR HGB CONC 33 g/dL (31-37); MEAN CORPUSCULAR VOLUME 85 fL (79-100); MONO # 0.3 x10^3/uL (0.0-1.1); MONO % 5 % (0-9); NEUT # 3.4 x10^3uL (1.8-7.7); NEUT % 54 % (31-73); PLATELET COUNT 203 x10^3/uL (140-400); RED BLOOD COUNT 4.79 x10^6/uL (3.50-5.40); RED CELL DISTRIBUTION WIDTH 14.1 % (11.5-14.5); WHITE BLOOD COUNT 6.2 x10^3/uL (4.0-11.0)
[2018-07-28] MEDS ORDERED: KETOROLAC 30 MG/ML VIAL. IV ONE (10:15)
[2018-07-28 10:29] LABS: GFR 69.7; POTASSIUM 4.5 mmol/L (3.5-5.1)
--- NOTE | 2018-07-28 10:36 | RAD ---
Left ankle, 3 views, 07/28/2018: HISTORY: Fall There is a nondisplaced fracture of the distal fibula. No other fracture or dislocation is identified. There is moderate diffuse soft tissue swelling. IMPRESSION: Nondisplaced distal fibular fracture Electronically signed by: Matthias Bales MD (07/28/2018 10:33 AM) [facility]
--- NOTE | 2018-07-28 10:37 | RAD ---
Portable chest, 07/28/2018: HISTORY: Dizziness Comparison is made to a study from 02/25/2018. The heart is at the upper limits of normal in size. The pulmonary vascularity is normal. No pulmonary infiltrate is seen. There is no evidence of pleural fluid. IMPRESSION: No acute cardiopulmonary abnormality is detected. Electronically signed by: Matthias Bales MD (07/28/2018 10:34 AM) [facility]
[2018-07-28 10:42] LABS: ALBUMIN 3.9 g/dL (3.4-5.0); ALBUMIN/GLOBULIN RATIO 1.3 (1.0-1.7); MAGNESIUM 1.8 mg/dL (1.8-2.4); TOTAL BILIRUBIN 0.6 mg/dL (0.2-1.0); TOTAL PROTEIN 6.8 g/dL (6.4-8.2)
--- NOTE | 2018-07-28 10:57 | RAD ---
CT HEAD WO CONTRAST History: Dizziness Comparison: February 27, 2018 Technique: Noncontrast CT imaging was performed of the head. Exposure: One or more of the following individualized dose reduction techniques were utilized for this examination: 1. Automated exposure control 2. Adjustment of the mA and/or kV according to patient size 3. Use of iterative reconstruction technique. Findings: No acute extra-axial or parenchymal hemorrhage is identified. There is no significant intra-axial mass effect, midline shift, or extra-axial fluid collection. The ramachandran-white differentiation of the major vascular territories is preserved. The ventricles, sulci, and cisterns are within normal limits in size and configuration. The mastoid air cells and the visualized paranasal sinuses are aerated. No acute calvarial abnormality is identified. 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 Impression: 1. 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 No acute intracranial abnormality is identified. Electronically signed by: Calin Nascimento MD (07/28/2018 10:54 AM) [id number]
[2018-07-28 11:00] VITALS: BP 164/96
--- NOTE | 2018-07-28 11:06 | PHYS DOC ---
Past Medical History Past Medical History: Arrhythmia, Bronchitis, Hypertension, Other Additional Past Medical Histor: LBBB,BORDERLINE DM,VERTIGO Past Surgical History: Hysterectomy, Other Additional Past Surgical Histo: hernia, bladder Alcohol Use: None Drug Use: None Adult General Chief Complaint Chief Complaint: ANKLE PROBLEM HPI HPI Patient is a 53 year old female who presents with complaining of injury to left ankle. Patient states she has had episodes of dizziness for the last 3 days that last for a few seconds and usually happen with change of position without focal neuro deficit, chest pain, shortness of breath, vomiting, dehydration, tinnitus and change of hearing. Patient complaining of nausea. Patient states she was going downstairs and felt dizzy and had a fall from tree yesterday without loss of consciousness. Patient complaining of injury to left ankle and states she was not able to bearing weight. She rated her pain 7/10. Patient states she had h istory of episodes of dizziness previously and diagnosed with benign positional vertigo. Review of Systems Review of Systems Constitutional: Denies fever or chills [] Eyes: Denies change in visual acuity, redness, or eye pain [] HENT: Denies nasal congestion or sore throat [] Respiratory: Denies cough or shortness of breath [] Cardiovascular: No additional information not addressed in HPI [] GI: Denies abdominal pain, vomiting, bloody stools or diarrhea , reports nausea[] : Denies dysuria or hematuria [] Musculoskeletal: Denies back pain, reports joint pain [] Integument: Denies rash or skin lesions [] Neurologic: Denies headache, focal weakness or sensory changes [] Endocrine: Denies polyuria or polydipsia [] All other systems were reviewed and found to be within normal limits, except as documented in this note. Current Medications Current Medications Current Medications Medications (Trade) Dose Ordered Sig/Dirk Start Time Stop Time Status Last Admin Dose Admin Fentanyl Citrate (Fentanyl 2ml Vial) 50 mcg 1X ONCE 07/28/18 11:30 07/28/18 11:31 DC 07/28/18 11:35 50 MCG Ketorolac Tromethamine (Toradol 30mg Vial) 30 mg 1X ONCE 07/28/18 10:15 07/28/18 10:16 DC 07/28/18 10:21 30 MG Magnesium Oxide (Magnesium Oxide) 400 mg DAILY 07/28/18 12:09 Meclizine HCl (Antivert) 25 mg 1X ONCE 07/28/18 11:15 07/28/18 11:16 DC 07/28/18 11:36 25 MG Ondansetron HCl (Zofran) 4 mg 1X ONCE 07/28/18 11:15 07/28/18 11:16 DC 07/28/18 11:35 4 MG Sodium Chloride 500 ml @ 500 mls/hr 1X ONCE 07/28/18 11:15 07/28/18 12:14 DC 07/28/18 11:43 500 MLS/HR Allergies Allergies Allergies Coded Allergies Type Severity Reaction Last Updated Verified No Known Drug Allergies 07/11/16 No Physical Exam Physical Exam Constitutional: Well developed, well nourished, mild distress, non-toxic appearance. [] HENT: Normocephalic, atraumatic, bilateral external ears normal, oropharynx moist, no oral exudates, nose normal. [] Eyes: PERRLA, EOMI, conjunctiva normal, no discharge. [] Neck: Normal range of motion, no tenderness, supple, no stridor. [] Cardiovascular:Heart rate regular rhythm, no murmur [] Lungs & Thorax: Bilateral breath sounds clear to auscultation [] Abdomen: Bowel sounds normal, soft, no tenderness, no masses, no pulsatile masses. [] Skin: Warm, dry, no erythema, no rash. [] Back: No tenderness, no CVA tenderness. [] Extremities: Left lower extremity with tenderness and edema in distal leg above ankle without neurovascular deficit. Neurologic: Alert and oriented X 3, normal motor function, normal sensory function, no focal deficits noted. [] Psychologic: Affect normal, judgement normal, mood normal. [] Current Patient Data Vital Signs Vital Signs Date Time Temp Pulse Resp B/P (MAP) Pulse Ox O2 Delivery O2 Flow Rate FiO2 07/28/18 09:20 97.7 68 20 137/79 (98) 100 Room Air 97.7 Lab Values Laboratory Tests Test 07/28/18 09:30 07/28/18 11:55 White Blood Count 6.2 x10^3/uL (4.0-11.0) Red Blood Count 4.79 x10^6/uL (3.50-5.40) Hemoglobin 13.3 g/dL (12.0-15.5) Hematocrit 40.7 % (36.0-47.0) Mean Corpuscular Volume 85 fL (79-100) Mean Corpuscular Hemoglobin 28 pg (25-35) Mean Corpuscular Hemoglobin Concent 33 g/dL (31-37) Red Cell Distribution Width 14.1 % (11.5-14.5) Platelet Count 203 x10^3/uL (140-400) Neutrophils (%) (Auto) 54 % (31-73) Lymphocytes (%) (Auto) 38 % (24-48) Monocytes (%) (Auto) 5 % (0-9) Eosinophils (%) (Auto) 2 % (0-3) Basophils (%) (Auto) 1 % (0-3) Neutrophils # (Auto) 3.4 x10^3uL (1.8-7.7) Lymphocytes # (Auto) 2.4 x10^3/uL (1.0-4.8) Monocytes # (Auto) 0.3 x10^3/uL (0.0-1.1) Eosinophils # (Auto) 0.1 x10^3/uL (0.0-0.7) Basophils # (Auto) 0.0 x10^3/uL (0.0-0.2) Sodium Level 143 mmol/L (136-145) Potassium Level 4.5 mmol/L (3.5-5.1) Chloride Level 107 mmol/L (98-107) Carbon Dioxide Level 23 mmol/L (21-32) Anion Gap 13 (6-14) Blood Urea Nitrogen 14 mg/dL (7-20) Creatinine 1.0 mg/dL (0.6-1.0) Estimated GFR (Cockcroft-Gault) 69.7 BUN/Creatinine Ratio 14 (6-20) Glucose Level 111 mg/dL (70-99) H Calcium Level 9.0 mg/dL (8.5-10.1) Magnesium Level 1.8 mg/dL (1.8-2.4) Total Bilirubin 0.6 mg/dL (0.2-1.0) Aspartate Amino Transferase (AST) 16 U/L (15-37) Alanine Aminotransferase (ALT) 27 U/L (14-59) Alkaline Phosphatase 148 U/L (46-116) H Creatine Kinase 176 U/L (26-192) Troponin I Quantitative < 0.017 ng/mL (0.000-0.055) UI-Pss-W-Type Natriuretic Peptide 73 pg/mL (0-124) Total Protein 6.8 g/dL (6.4-8.2) Albumin 3.9 g/dL (3.4-5.0) Albumin/Globulin Ratio 1.3 (1.0-1.7) Urine Collection Type Unknown Urine Color Yellow Urine Clarity Clear Urine pH 5.0 Urine Specific [place] 1.020 Urine Protein Negative mg/dL (NEG-TRACE) Urine Glucose (UA) Negative mg/dL (NEG) Urine Ketones (Stick) Negative mg/dL (NEG) Urine Blood Negative (NEG) Urine Nitrite Negative (NEG) Urine Bilirubin Negative (NEG) Urine Urobilinogen Dipstick 0.2 mg/dL (0.2 mg/dL) Urine Leukocyte Esterase Trace (NEG) Urine RBC 0 /HPF (0-2) Urine WBC 5-10 /HPF (0-4) Urine Squamous Epithelial Cells Mod /LPF Urine Bacteria Few /HPF (0-FEW) Urine Hyaline Casts Few /HPF Urine Mucus Mod /LPF Laboratory Tests 07/28/18 09:30 Laboratory Tests 07/28/18 09:30 EKG EKG EKG interpreted by me. EKG at 931 showed normal sinus rhythm at rate of 71, left bundle branch block(chronic), no acute ST and T-wave abnormalities. Radiology/Procedures Radiology/Procedures [facility] [address] [place] [address] IMAGING REPORT Signed PATIENT: GABRIELLA TEJADA ACCOUNT: [id number] : 1965 LOCATION: ER AGE: 53 SEX: F EXAM STATUS: REG ER ORD. PHYSICIAN: AUDIE TAVAREZ MD REASON: dizziness PROCEDURE: CT HEAD WO CONTRAST CT HEAD WO CONTRAST History: Dizziness Comparison: February 27, 2018 Technique: Noncontrast CT imaging was performed of the head. Exposure: One or more of the following individualized dose reduction techniques were utilized for this examination: 1. Automated exposure control 2. Adjustment of the mA and/or kV according to patient size 3. Use of iterative reconstruction technique. Findings: No acute extra-axial or parenchymal hemorrhage is identified. There is no significant intra-axial mass effect, midline shift, or extra-axial fluid collection. The ramachandran-white differentiation of the major vascular territories is preserved. The ventricles, sulci, and cisterns are within normal limits in size and configuration. The mastoid air cells and the visualized paranasal sinuses are aerated. No acute calvarial abnormality is identified. 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 Impression: 1. 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 No acute intracranial abnormality is identified. Electronically signed by: Rich Nascimento MD (07/28/2018 10:54 AM) [id number] DICTATED and SIGNED BY: RICH NASCIMENTO MD DATE: 07/28/[address] [address] IMAGING REPORT Signed PATIENT: GABRIELLA TEJADA ACCOUNT: [id number] : 1965 LOCATION: ER AGE: 53 SEX: F EXAM STATUS: REG ER ORD. PHYSICIAN: AUDIE TAVAREZ MD REASON: dizziness PROCEDURE: PORTABLE CHEST 1V Portable chest, 07/28/2018: HISTORY: Dizziness Comparison is made to a study from 02/25/2018. The heart is at the upper limits of normal in size. The pulmonary vascularity is normal. No pulmonary infiltrate is seen. There is no evidence of pleural fluid. IMPRESSION: No acute cardiopulmonary abnormality is detected. Electronically signed by: Matthias Shah MD (07/28/2018 10:34 AM) [facility] DICTATED and SIGNED BY: MATTHIAS SHAH MD DATE: 07/28/18 1034 [facility] [address] [place] [address] IMAGING REPORT Signed PATIENT: GABRIELLA TEJADA ACCOUNT: [id number] : 1965 LOCATION: ER AGE: 53 SEX: F EXAM STATUS: REG ER ORD. PHYSICIAN: AUDIE TAVAREZ MD REASON: left ankle pain after fall PROCEDURE: ANKLE LEFT 3V Left ankle, 3 views, 07/28/2018: HISTORY: Fall There is a nondisplaced fracture of the distal fibula. No other fracture or dislocation is identified. There is moderate diffuse soft tissue swelling. IMPRESSION: Nondisplaced distal fibular fracture Electronically signed by: Matthias Shah MD (07/28/2018 10:33 AM) [facility] DICTATED and SIGNED BY: MATTHIAS SHAH MD DATE: 07/28/18 1033 Course & Med Decision Making Course & Med Decision Making Pertinent Labs and Imaging studies reviewed. (See chart for details) Evaluation of patient in ER showed 53-year-old female patient with complaining of episodes of dizziness and a fall because of dizziness today. Patient had unremarkable physical exam except for left lower extremity tenderness. Patient had nondisplaced distal fibula fracture and felt better after treatment with pain medication in ER. Long leg splint was placed and crutches provided. Patient had history of previous dizziness with diagnosis of benign positional vertigo. Patient was advised with follow-up with communications officer orthopedic physician and her primary care physician. I've spoken with the patient and/or caregivers. I've explained the patient's condition, diagnosis and treatment plan based on information available to me at this time. I've answered the patient's and/or caregivers questions and addressed any concerns. The patient and/or caregivers have a good understanding the patient's diagnosis, condition and treatment plan as can be expected at this point. Vital signs have been stabilized. The patient's condition is stable for discharge from the emergency department. The patient will pursue further outpatient evaluation with her primary care provider or other designated consulting physician as outlined in the discharge instructions. Patient and/or caregivers are agreeable to this plan of care and follow-up instructions have been explained in detail. The patient and/or caregivers have received these instructions in written format and expressed understanding of these discharge instructions. The patient and her caregivers are aware that if any significant change in condition or worsening of symptoms should prompt him to immediately return to this of the closest emergency department. If an emergent department is not readily available I would encourage him to call 911. Rivera Disclaimer Dragon Disclaimer This electronic medical record was generated, in whole or in part, using a voice recognition dictation system. Departure Departure Impression: Primary Impression: Fracture of fibula, distal, left, closed Additional Impressions: Benign positional vertigo Fall down stairs Urinary tract infection Disposition: 01 HOME, SELF-CARE (at 1159) Condition: IMPROVED Referrals: MATA ESCALANTE MD (PCP) SUNIL ARCINIEGA II, MD Patient Instructions: Benign Positional Vertigo, Fibular Fracture, Ankle, Adult, Undisplaced, Treated with Immobilization, Urinary Tract Infection Additional Instructions: Drink plenty of liquids Follow-up with your primary care physician in 3-5 days Return to ER if not getting better Follow-up with on-call orthopedic physician in 2 or 3 days Scripts Sulfamethoxazole/Trimethoprim (BACTRIM DS TABLET) 1 Each Tablet 1 TAB PO BID for infection, #6 TAB Prov: AUDIE TAVAREZ MD 07/28/18 Ondansetron Hcl (ZOFRAN) 4 Mg Tablet 1 TAB PO PRN Q6-8HRS for nausea, #12 TAB Prov: AUDIE TAVAREZ MD 07/28/18 Hydrocodone/Apap 5-325 (NORCO 5-325 TABLET) 1 Each Tablet 1 TAB PO PRN Q6HRS PRN for PAIN, #20 TAB 0 Refills Prov: AUDIE ATVAREZ MD 07/28/18 Meclizine Hcl (MECLIZINE HCL) 25 Mg Tablet 1 TAB PO TID for dizziness, #20 TAB Prov: AUDIE TAVAREZ MD 07/28/18 Problem Qualifiers Primary Impression: Fracture of fibula, distal, left, closed Encounter type: initial encounter Fracture morphology: unspecified fracture morphology Qualified Codes: S82.832A - Other fracture of upper and lower end of left fibula, initial encounter for closed fracture Additional Impressions: Benign positional vertigo Laterality: unspecified laterality Qualified Codes: H81.10 - Benign p aroxysmal vertigo, unspecified ear Fall down stairs Encounter type: subsequent encounter Qualified Codes: W10.8XXD - Fall (on) (from) other stairs and steps, subsequent encounter Urinary tract infection Urinary tract infection type: site unspecified Hematuria presence: without hematuria Qualified Codes: N39.0 - Urinary tract infection, site not specified AUDIE TAVAREZ MD July 28, 2018 11:05
[2018-07-28] MEDS ORDERED: MECLIZINE HCL 12.5 MG TABLET. PO ONE (11:15)
[2018-07-28] MEDS ORDERED: IV NORMAL SALINE 500ML BAG 500 ML IV ONE (11:15)
[2018-07-28] MEDS ORDERED: ONDANSETRON PF 4 MG/2 ML VIAL. IV ONE (11:15)
[2018-07-28] MEDS ORDERED: fentaNYL PF VIAL 100 MCG/2 ML VIAL IV ONE (11:30)
[2018-07-28 12:02] LABS: BILIRUBIN,URINE NEGATIVE (NEG); CLARITY,URINE CLEAR; COLOR,URINE YELLOW; NITRITE,URINE NEGATIVE (NEG); PROTEIN,URINE NEGATIVE (NEG-TRACE); UROBILINOGEN,URINE 0.2 mg/dL (0.2 mg/dL)
[2018-07-28] MEDS ORDERED: ONDA4TAB7 PO (12:04)
[2018-07-28] MEDS ORDERED: HYDR-3164 PO (12:04)
[2018-07-28] MEDS ORDERED: MECL25TA3 PO (12:04)
[2018-07-28] MEDS ORDERED: MAGNESIUM OXIDE 400 MG TABLET PO SCH (12:09)
[2018-07-28 12:19] LABS: HYALINE CASTS, URINE FEW /HPF; SQUAMOUS EPITHELIAL CELL,UR MOD /LPF
[2018-07-28 12:20] LABS: BACTERIA,URINE FEW /HPF (0-FEW); RBC,URINE 0 /HPF (0-2)
[2018-07-28] MEDS ORDERED: SULF1TAB24 PO (12:24)
--- NOTE | 2018-07-28 14:51 | EKG ---
[facility] [address] [place] [address] Test Date: 2018-07-28 Test Time: 09:31:45 Pat Name: GABRIELLA TEJADA Department: Room: Gender: F Organ Recovery Coordinator: : 1965 Requested By: AUDIE TAVAREZ Order Number: [id number] Reading MD: Measurements Intervals [place] Rate: 71 P: 92 PA: 168 QRS: 6 QRSD: 128 T: -2 QT: 452 QTc: 497 Interpretive Statements SINUS RHYTHM NON SPECIFIC INTRAVENTRICULAR BLOCK ABNORMAL ECG RI6.01 Unconfirmed report No previous ECG available for comparison
== END 2018-07-28 13:03 | disposition home or self-care (01) ==
LOC: ER 09:19
DX: S82.832A Other fracture of upper and lower end of left fibula, initial encounter for closed fracture (principal); N39.0 Urinary tract infection, site not specified; H81.10 Benign paroxysmal vertigo, unspecified ear; R11.0 Nausea; I10 Essential (primary) hypertension; Z90.710 Acquired absence of both cervix and uterus; W10.8XXA Fall (on) (from) other stairs and steps, initial encounter; Y93.89 Activity, other specified; Y92.89 Other specified places as the place of occurrence of the external cause; Y99.8 Other external cause status
CPT/HCPCS: 29515; 36415; 70450; 71045; 73610; 80053; 81001; 82550; 83735; 83880; 84484; 85025; 87086; 93005; 96361; 96374; 96375; 99285; J1885; J2405; J3010; J7040; J8597; 29505

== ENCOUNTER 2018-10-19 14:25 | Emergency (ER) | payer OTHER ==
[~2018-10-19] VITALS: Ht 162.6 cm; Wt 104.3 kg
[~2018-10-19 14:25] MED LIST changes: +HYDR-3164 PO; +ONDA4TAB7 PO; +SULF1TAB24 PO
[2018-10-19 14:53] LABS: BASO # 0.1 x10^3/uL (0.0-0.2); BASO % 1 % (0-3); EOS # 0.2 x10^3/uL (0.0-0.7); EOS % 2 % (0-3); HEMATOCRIT 41.7 % (36.0-47.0); HEMOGLOBIN 13.8 g/dL (12.0-15.5); LYMPH # 2.1 x10^3/uL (1.0-4.8); LYMPH % 32 % (24-48); MEAN CORPUSCULAR HEMOGLOBIN 28 pg (25-35); MEAN CORPUSCULAR HGB CONC 33 g/dL (31-37); MEAN CORPUSCULAR VOLUME 86 fL (79-100); MONO # 0.3 x10^3/uL (0.0-1.1); MONO % 5 % (0-9); NEUT # 4.1 x10^3/uL (1.8-7.7); NEUT % 60 % (31-73); PLATELET COUNT 217 x10^3/uL (140-400); RED BLOOD COUNT 4.86 x10^6/uL (3.50-5.40); RED CELL DISTRIBUTION WIDTH 14.4 % (11.5-14.5); WHITE BLOOD COUNT 6.8 x10^3/uL (4.0-11.0)
--- NOTE | 2018-10-19 14:54 | PHYS DOC ---
Past Medical History Past Medical History: Arrhythmia, Bronchitis, Hypertension, Other Additional Past Medical Histor: LBBB,BORDERLINE DM,VERTIGO Past Surgical History: Hysterectomy, Other Additional Past Surgical Histo: hernia, bladder Smoking: Cigarettes (The patient is a nonsmoker.) Alcohol Use: None Drug Use: None Adult General Chief Complaint Chief Complaint: "I've been under a lot of stress" HPI HPI Patient is a 53-year-old female who presents to the emergency department for evaluation. She states that she was seeing her therapist. The patient's face looked asymmetrical and sent the patient to the emergency department. The patient states that she has been under stress recently, secondary to several deaths in the family. He states that she is experiencing a "tightness" on her face, primarily on the left side. She denies any other numbness, weakness, vision changes, speech difficulty, and denies any significant or severe headache. She does admit to a mild headache, but states that this headache is not the worst headache of her life, and similar to mild headaches that she has had in the past. She has not had any nausea, vomiting, or chest pain. There are no alleviating or exacerbating factors to her symptoms. Review of Systems Review of Systems Constitutional: Denies fever or chills [] Eyes: Denies change in visual acuity, redness, or eye pain [] HENT: Denies nasal congestion or sore throat [] Respiratory: Denies cough or shortness of breath [] Cardiovascular: The patient denies any shortness of breath, chest pain, palpitations, or orthopnea [] GI: Denies abdominal pain, nausea, vomiting, bloody stools or diarrhea [] : Denies dysuria or hematuria [] Musculoskeletal: Denies back pain or joint pain [] Integument: Denies rash or skin lesions [] Neurologic: Denies severe headache, focal weakness or speech or cognitive changes [] Endocrine: Denies polyuria or polydipsia [] All other systems were reviewed and found to be within normal limits, except as documented in this note. Current Medications Current Medications Current Medications Medications (Trade) Dose Ordered Sig/Dirk Start Time Stop Time Status Last Admin Dose Admin Acetaminophen (Tylenol) 1,000 mg 1X ONCE 10/19/18 15:00 10/19/18 15:01 DC 10/19/18 15:01 1,000 MG Lorazepam (Ativan Inj) 1 mg 1X ONCE 10/19/18 15:00 10/19/18 15:01 DC 10/19/18 15:01 1 MG Allergies Allergies Allergies Coded Allergies Type Severity Reaction Last Updated Verified No Known Drug Allergies 07/11/16 No Physical Exam Physical Exam PHYSICAL EXAM: CONSTITUTIONAL: Well developed, well nourished HEAD: normocephalic, atraumatic EENT: PERRL, EOMI. Conjunctivae normal color, sclerae non-icteric; moist mucous membranes. NECK: Supple, non-tender; no meningismus. LUNGS: Lungs CTA, breathing even and unlabored. Normal air movement. HEART: Regular rate and rhythm, no murmur CHEST: No deformity; non-tender ABDOMEN: The abdomen is soft, and non-tender, no masses or bruits. EXTREM: Normal ROM; no deformity, no calf tenderness. Normal pulses palpable in all extremities. There is no pedal edema. SKIN: No rash; no diaphoresis NEURO: Alert; normal speech and cognition; CN's grossly intact; strength grossly intact without focal deficit. Rbdsbu-wiik-cvsizu and heel matamoros testing is normal. Visual rodriguez are intact by confrontation. Sensation is intact and symmetrical in all extremities and the face, and NIH stroke scale score is 0. BACK: No CVA TTP. Current Patient Data Vital Signs Vital Signs Date Time Temp Pulse Resp B/P (MAP) Pulse Ox O2 Delivery O2 Flow Rate FiO2 10/19/18 14:27 98.2 66 18 186/108 (134) 97 Room Air 98.2 Lab Values Laboratory Tests Test 10/19/18 14:36 White Blood Count 6.8 x10^3/uL (4.0-11.0) Red Blood Count 4.86 x10^6/uL (3.50-5.40) Hemoglobin 13.8 g/dL (12.0-15.5) Hematocrit 41.7 % (36.0-47.0) Mean Corpuscular Volume 86 fL (79-100) Mean Corpuscular Hemoglobin 28 pg (25-35) Mean Corpuscular Hemoglobin Concent 33 g/dL (31-37) Red Cell Distribution Width 14.4 % (11.5-14.5) Platelet Count 217 x10^3/uL (140-400) Neutrophils (%) (Auto) 60 % (31-73) Lymphocytes (%) (Auto) 32 % (24-48) Monocytes (%) (Auto) 5 % (0-9) Eosinophils (%) (Auto) 2 % (0-3) Basophils (%) (Auto) 1 % (0-3) Neutrophils # (Auto) 4.1 x10^3/uL (1.8-7.7) Lymphocytes # (Auto) 2.1 x10^3/uL (1.0-4.8) Monocytes # (Auto) 0.3 x10^3/uL (0.0-1.1) Eosinophils # (Auto) 0.2 x10^3/uL (0.0-0.7) Basophils # (Auto) 0.1 x10^3/uL (0.0-0.2) Sodium Level 145 mmol/L (136-145) Potassium Level 4.2 mmol/L (3.5-5.1) Chloride Level 105 mmol/L (98-107) Carbon Dioxide Level 28 mmol/L (21-32) Anion Gap 12 (6-14) Blood Urea Nitrogen 16 mg/dL (7-20) Creatinine 1.1 mg/dL (0.6-1.0) H Estimated GFR (Cockcroft-Gault) 62.4 BUN/Creatinine Ratio 15 (6-20) Glucose Level 88 mg/dL (70-99) Calcium Level 10.3 mg/dL (8.5-10.1) H Total Bilirubin 0.6 mg/dL (0.2-1.0) Aspartate Amino Transferase (AST) 20 U/L (15-37) Alanine Aminotransferase (ALT) 30 U/L (14-59) Alkaline Phosphatase 139 U/L (46-116) H Troponin I Quantitative < 0.017 ng/mL (0.000-0.055) Total Protein 7.6 g/dL (6.4-8.2) Albumin 4.2 g/dL (3.4-5.0) Albumin/Globulin Ratio 1.2 (1.0-1.7) Laboratory Tests 10/19/18 14:36 Laboratory Tests 10/19/18 14:36 EKG EKG [Normal sinus rhythm a rate of 67 beats for minute, left axis deviation, left bundle-branch block, with secondary repolarization abnormality, there are no acute ischemic ST/T changes.] Radiology/Procedures Radiology/Procedures [PROCEDURE: CT HEAD WO CONTRAST PQRS Compliance statement: One or more of the following individualized dose reduction techniques were utilized for this examination: 1. Automated exposure control. 2. Adjustment of the mA and/or kV according to patient size. 3. Use of iterative reconstruction technique. Indication:Headache. TECHNIQUE: CT head without IV contrast COMPARISON: 07/28/2018. FINDINGS: No pathologic extra-axial or intra-axial fluid collection. The ventricles and basal cisterns are within normal limits. No acute intracranial bleed. No focal loss of ramachandran-white differentiation. Orbits are within normal limits. No suspicious calvarial lesion. Visualized paranasal sinuses and mastoid air cells are clear. IMPRESSION: No acute intracranial process on this noncontrast CT.] Course & Med Decision Making Course & Med Decision Making Pertinent Labs and Imaging studies reviewed. (See chart for details) [] 3:55 PM: The patient's condition remained stable. She is feeling significantly better. Her blood pressure has improved, to the 150s systolic at this time. I discussed the inability to definitively rule out acute ischemic stroke in the emergency department without further testing and observation, and we discussed overnight hospitalization, but the patient does not want stay in the hospital. The clinical suspicion for acute ischemic stroke is very low. I discussed importance of close follow-up, and return precautions. Dragon Disclaimer Dragon Disclaimer This electronic medical record was generated, in whole or in part, using a voice recognition dictation system. Departure Departure Impression: Primary Impression: Head pain Additional Impression: Atypical facial pain Disposition: 01 HOME, SELF-CARE Condition: STABLE Referrals: MATA ESCALANTE MD (PCP) Patient Instructions: General Headache Without Cause Additional Instructions: Continue taking 81 mg of aspirin daily, until instructed otherwise. Problem Qualifiers JANAK THOMAS MD Oct 19, 2018 14:54
[2018-10-19] MEDS ORDERED: ACETAMINOPHEN 500 MG TABLET PO ONE (15:00)
[2018-10-19 15:05] LABS: CALCIUM 10.3 mg/dL (8.5-10.1); CREATININE 1.1 mg/dL (0.6-1.0); GFR 62.4; POTASSIUM 4.2 mmol/L (3.5-5.1)
[2018-10-19 15:10] LABS: ALBUMIN 4.2 g/dL (3.4-5.0); ALBUMIN/GLOBULIN RATIO 1.2 (1.0-1.7); TOTAL BILIRUBIN 0.6 mg/dL (0.2-1.0); TOTAL PROTEIN 7.6 g/dL (6.4-8.2)
[2018-10-19 15:17] VITALS: BP 153/92
--- NOTE | 2018-10-19 15:22 | RAD ---
PQRS Compliance statement: One or more of the following individualized dose reduction techniques were utilized for this examination: 1. Automated exposure control. 2. Adjustment of the mA and/or kV according to patient size. 3. Use of iterative reconstruction technique. Indication:Headache. TECHNIQUE: CT head without IV contrast COMPARISON: 07/28/2018. FINDINGS: No pathologic extra-axial or intra-axial fluid collection. The ventricles and basal cisterns are within normal limits. No acute intracranial bleed. No focal loss of ramachandran-white differentiation. Orbits are within normal limits. No suspicious calvarial lesion. Visualized paranasal sinuses and mastoid air cells are clear. IMPRESSION: No acute intracranial process on this noncontrast CT. Electronically signed by: Patricio Evans DO (10/19/2018 3:19 PM) [facility]
--- NOTE | 2018-10-19 15:24 | EKG ---
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
== END 2018-10-19 16:25 | disposition home or self-care (01) ==
LOC: ER 14:25
DX: R51 Headache (principal); I10 Essential (primary) hypertension
CPT/HCPCS: 36415; 70450; 80053; 84484; 85025; 93005; 96374; 99285; J2060

== ENCOUNTER 2019-02-05 19:08 | Emergency (ER) | payer OTHER ==
[~2019-02-05] VITALS: Ht 160 cm; Wt 104.3 kg
[~2019-02-05 19:08] MED LIST changes: -LAMO100T PO; +LAMO100T8 PO
[2019-02-05 19:30] VITALS: BP 134/76
[2019-02-05 19:46] LABS: BILIRUBIN,URINE NEGATIVE (NEG); CLARITY,URINE CLEAR; NITRITE,URINE NEGATIVE (NEG); PH,URINE 5.5; PROTEIN,URINE 30 mg/dL (NEG-TRACE); UROBILINOGEN,URINE 0.2 mg/dL (0.2 mg/dL)
[2019-02-05 20:00] LABS: COLOR,URINE YELLOW
[2019-02-05 20:01] LABS: BACTERIA,URINE MODERATE /HPF (0-FEW); RBC,URINE >40 /HPF (0-2); SQUAMOUS EPITHELIAL CELL,UR FEW /LPF
--- NOTE | 2019-02-05 20:30 | PHYS DOC ---
Past Medical History Past Medical History: Arrhythmia, Bronchitis, Hypertension, Other Additional Past Medical Histor: LBBB,BORDERLINE DM,VERTIGO (ALLISON LAGUNAS APRN) Past Surgical History: Hysterectomy, Other Additional Past Surgical Histo: hernia, bladder (ALLISON LAGUNAS APRN) Alcohol Use: None Drug Use: None (ALLISON LAGUNAS APRN) Attending Signature I have participated in the care of this patient and I have reviewed and agree with all pertinent clinical information above including history, exam, and recommendations. (STAN BEAL MD) Adult General Chief Complaint Chief Complaint: BLOOD IN URINE HPI HPI Patient is a 53 year old female who presents with had a urodynamic procedure this morning with Dr. 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 Patient states her last 3 weeks she's also been having bladder spasms but she didn't tell the doctor that this morning. Patient states now she has blood in her urine. She states it hurts when she goes from laying to sitting position. She states it feels sore. She rates her pain a 7 out of 10. She states that she call Dr. Bolden's office and the ammonium sulfate operator physician stated they did not know why the doctor would have done this procedure on her as they are MACHINE CONTAINER WASHER. They told her to go to the emergency room. (ALLISON LAGUNAS APRN) Review of Systems Review of Systems GI:Low m id abdominal pain, denies nausea, vomiting, bloody stools or diarrhea [] : Denies dysuria. + hematuria [] All other systems were reviewed and found to be within normal limits, except as documented in this note. (ALLISON LAGUNAS APRN) Allergies Allergies Allergies Coded Allergies Type Severity Reaction Last Updated Verified No Known Drug Allergies 07/11/16 No (STAN BEAL MD) Physical Exam Physical Exam Constitutional: Well developed, well nourished, no acute distress, non-toxic appearance. [] HENT: Normocephalic, atraumatic, bilateral external ears normal, oropharynx moist, no oral exudates, nose normal. [] Eyes: PERRLA, EOMI, conjunctiva normal, no discharge. [] Neck: Normal range of motion, no tenderness, supple, no stridor. [] Cardiovascular:Heart rate regular rhythm, no murmur [] Lungs & Thorax: Bilateral breath sounds clear to auscultation [] Abdomen: Bowel sounds normal, soft, low mid tenderness, no masses, no pulsatile masses. [] Skin: Warm, dry, no erythema, no rash. [] Back: No tenderness, no CVA tenderness. [] Extremities: No tenderness, no cyanosis, no clubbing, ROM intact, no edema. [] Neurologic: Alert and oriented X 3, normal motor function, normal sensory function, no focal deficits noted. [] Psychologic: Affect normal, judgement normal, mood normal. [] (ALLISON LAGUNAS APRN) Current Patient Data Vital Signs Vital Signs Date Time Temp Pulse Resp B/P (MAP) Pulse Ox O2 Delivery O2 Flow Rate FiO2 02/05/19 19:30 97.9 76 18 134/76 (95) 100 Room Air 97.9 (STAN BEAL MD) Lab Values Laboratory Tests Test 02/05/19 19:30 Urine Collection Type Unknown Urine Color Yellow Urine Clarity Clear Urine pH 5.5 Urine Specific [place] 1.010 Urine Protein 30 mg/dL (NEG-TRACE) Urine Glucose (UA) Negative mg/dL (NEG) Urine Ketones (Stick) Negative mg/dL (NEG) Urine Blood Large (NEG) Urine Nitrite Negative (NEG) Urine Bilirubin Negative (NEG) Urine Urobilinogen Dipstick 0.2 mg/dL (0.2 mg/dL) Urine Leukocyte Esterase Moderate (NEG) Urine RBC >40 /HPF (0-2) Urine WBC 1-4 /HPF (0-4) Urine Squamous Epithelial Cells Few /LPF Urine Bacteria Moderate /HPF (0-FEW) (STAN BEAL MD) EKG EKG [] (ALLISON LAGUNAS APRN) Radiology/Procedures Radiology/Procedures [] (ALLISON LAGUNAS APRN) Course & Med Decision Making Course & Med Decision Making Urine does show large blood but also urinary tract infection. Denies clots. Low mid abdomen is tender to palpation right abdomen is soft and nontender. Afebrile and vital signs within normal limits. Ambulatory with a steady gait. Skin pink warm and dry. Alert and oriented. Speaks in full clear sentences. Patient denies chest pain, nausea, vomiting, fever, back pain, shortness of breath, other dysuria symptoms. Urinalysis positive for infection. KUB shows no acute findings and is read by Dr Beal. I have spoken to Dr Beal concerning this patient and plan of care. Patient will be treated for her UTI and to call her physician in the morning. (ALLISON LAGUNAS APRN) Dragon Disclaimer Dragon Disclaimer This electronic medical record was generated, in whole or in part, using a voice recognition dictation system. (ALLISON LAGUNAS APRN) Departure Departure Impression: Primary Impression: Hematuria Additional Impression: UTI (urinary tract infection) Disposition: HOME, SELF-CARE Condition: STABLE Referrals: MATA ESCALANTE MD (PCP) Patient Instructions: Urinary Tract Infection Additional Instructions: Call your doctor in the morning. Take medication as prescribed. Scripts Cephalexin (KEFLEX) 500 Mg Capsule 1 CAP PO BID for 7 Days, #14 CAP 0 Refills Prov: ALLISON LAGUNAS APRN 02/05/19 Phenazopyridine Hcl (PYRIDIUM) 100 Mg Tablet 1 TAB PO TID for urinary discomfort for 3 Days, #9 TAB 0 Refills Prov: ALLISON LAGUNAS APRN 02/05/19 Problem Qualifiers Primary Impression: Hematuria Hematuria type: unspecified type Qualified Codes: R31.9 - Hematuria, unspecified Additional Impression: UTI (urinary tract infection) Urinary tract infection type: site unspecified Hematuria presence: with hematuria Qualified Codes: N39.0 - Urinary tract infection, site not specified; R31.9 - Hematuria, unspecified ALLISON LAGUNAS APRN Feb 05, 2019 20:30 STAN BEAL MD Feb 06, 2019 05:31
[2019-02-05] MEDS ORDERED: PHEN100T82 PO (21:29)
[2019-02-05] MEDS ORDERED: CEPH-264 PO (21:29)
--- NOTE | 2019-02-06 00:13 | RAD ---
Examination: Frontal view of the abdomen HISTORY: History of hematuria COMPARISON: None available Findings/ impression: Feces and gas noted in the colon. Nonspecific bowel gas pattern. Electronically signed by: Emil Zendejas MD (02/06/2019 12:10 AM) [facility] [id number]
== END 2019-02-05 21:42 | disposition home or self-care (01) ==
LOC: ER 19:08
DX: N39.0 Urinary tract infection, site not specified (principal); R31.9 Hematuria, unspecified; I10 Essential (primary) hypertension; Z90.710 Acquired absence of both cervix and uterus
CPT/HCPCS: 74018; 81001; 99285

== ENCOUNTER → 2019-08-06 | Outpatient (CLI) | payer OTHER ==
[~2019-08-06] MED LIST changes: +CEPH-264 PO; +IOHEXOL 240 MG/ML 50ML VIAL. PO ONE; +IOHEXOL 300 MG/ML 100ML VIAL. IV ONE; +MECL-75 PO; -MECL25TA3 PO; +PHEN100T82 PO
--- NOTE | 2019-08-06 15:15 | KCIC ---
CT abdomen and pelvis with contrast History: Pelvic pain, urinary frequency Technique: After the administration of intravenous contrast, CT imaging was performed of the abdomen and pelvis. Oral contrast was also given. Multiplanar images are reviewed. Exposure: One or more of the following individualized dose reduction techniques were utilized for this examination: 1. Automated exposure control 2. Adjustment of the mA and/or kV according to patient size 3. Use of iterative reconstruction technique. Comparison: None Findings: There is some motion degradation. There is no significant abnormality of the visualized lung bases. The very superior dome of the liver was not entirely included. There is no significant abnormality of the liver, spleen, pancreas, adrenal glands. Both kidneys enhance without hydronephrosis. Gallbladder is present without obvious intraluminal abnormality by CT. Accurate evaluation of bowel is limited without oral contrast. There is no significant inflammatory change adjacent to the bowel. Appendix caliber is within normal limits without significant adjacent inflammatory-type change. There is no evidence of bowel obstruction, free fluid, or free air. Normal appendix is visualized. There has been hysterectomy. Impression: 1. No acute abnormality is identified. Electronically signed by: Calin Nascimento MD (08/06/2019 3:12 PM) [id number]
== END | disposition home or self-care (01) ==
LOC: KCIC CT 12:30
PROVIDERS: ATTEND Obstetrics & Gynecology
DX: R10.2 Pelvic and perineal pain (principal); Z90.710 Acquired absence of both cervix and uterus
CPT/HCPCS: 74177; Q9966; Q9967

== ENCOUNTER → 2019-08-14 | Outpatient (CLI) | payer OTHER ==
[~2019-08-14] MED LIST changes: -CALC600T4 PO; +CALC600T5 PO; -IOHEXOL 240 MG/ML 50ML VIAL. PO ONE; -IOHEXOL 300 MG/ML 100ML VIAL. IV ONE
--- NOTE | 2019-08-14 14:45 | KCIC ---
Bilateral digital screening mammograms: Reason for examination: Routine screening. Comparison is made to previous studies dated back to 12/26/2014. Interpretation was made with the benefit of CAD. The skin and nipples show no abnormalities. No abnormal axillary lymph nodes are seen. The breast parenchyma shows scattered fibroglandular density. (Breast density: Category B.) There continues to be a small nodule consistent with an intramammary lymph node at the 10:00 position of the right breast posteriorly. There are no new dominant masses, suspicious calcifications or architectural distortions. Impression: No evidence of malignancy. Recommend routine screening. BI-RADS Category 2: Benign. "Our facility is accredited by the [employer] Mammography Program." This patient's information has been entered into a reminder system for the patient to be notified with the results of her examination and a target date for the next mammogram. Electronically signed by: Mayte Kraft MD (08/14/2019 2:43 PM) [id number]
== END | disposition home or self-care (01) ==
LOC: KCIC MAMMO 12:24
PROVIDERS: ATTEND Family Medicine
DX: Z12.31 Encounter for screening mammogram for malignant neoplasm of breast (principal); N64.89 Other specified disorders of breast
CPT/HCPCS: 77067

== ENCOUNTER 2020-08-23 19:01 | Emergency (ER) | payer OTHER ==
[~2020-08-23] VITALS: Ht 162.6 cm; Wt 114.0 kg
[~2020-08-23 19:01] MED LIST changes: +AMLO-187 PO; +BUPR300T92 PO; -CALC600T5 PO; +CALC600T60 PO; +PARO20TA3 PO; +QUET50TA PO; +SERT-267 PO; -SERT50TA8 PO
[2020-08-23 19:15] VITALS: BP 176/95
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
--- NOTE | 2020-08-23 21:49 | RAD ---
Exam performed: X-ray left hip and x-ray lumbosacral spine. HISTORY: Low back pain. DATE OF SERVICE: 08/23/2020. COMPARISON: None available FINDINGS: AP view of the pelvis and frog-leg lateral view of the left hip is obtained. Normal alignment of both hip joints and sacroiliac joints is preserved. There is no acute fracture or dislocation. Nonspecifi c bowel gas pattern is seen. AP, lateral and cone view of the lumbosacral junction is obtained. There is transitional anatomy at t he lumbosacral junction. Normal sagittal alignment is preserved. The vertebral body heights and inter vertebral disc spaces are maintained. There is no lea or retrolisthesis. No compression fracture. Facet hypertrophic changes are seen involving the lower lumbar spine. Nonspecific bowel gas pattern i s seen. IMPRESSION: No acute abnormality seen in the left hip. No acute abnormality seen in the lumbosacral spine. Electronically signed by: Yoanna Harper MD (08/23/2020 9:46 PM) [facility]
[2020-08-23] MEDS ORDERED: ACET1TAB33 PO (21:54)
[2020-08-23] MEDS ORDERED: CYCL10TA2 PO (21:54)
== END 2020-08-23 22:02 | disposition home or self-care (01) ==
LOC: ER 19:01
DX: M25.552 Pain in left hip (principal); M54.5 Low back pain; M79.652 Pain in left thigh; G89.11 Acute pain due to trauma; E11.9 Type 2 diabetes mellitus without complications; I10 Essential (primary) hypertension; Z90.710 Acquired absence of both cervix and uterus; Z98.890 Other specified postprocedural states; V43.52XA Car driver injured in collision with other type car in traffic accident, initial encounter; Y93.89 Activity, other specified; Y92.488 Other paved roadways as the place of occurrence of the external cause; Y99.8 Other external cause status
CPT/HCPCS: 72100; 73501; 99284

== ENCOUNTER 2021-03-10 09:28 | Inpatient (IN) | payer OTHER ==
[~2021-03-10] VITALS: Ht 162.6 cm; Wt 112.0 kg
[~2021-03-10 09:28] MED LIST changes: +ACET1TAB33 PO; +CYCL10TA19 PO; -CYCL10TA2 PO; -DULO60CA6 PO; +DULO60CA7 PO; -QUET50TA PO; +QUET50TA3 PO
--- NOTE | 2021-03-10 09:37 | PHYS DOC ---
Past Medical History Past Medical History: Arrhythmia, Bronchitis, Diabetes-Type II, Hypertension, Other Additional Past Medical Histor: LBBB,VERTIGO (MARIVEL MCDANIEL) Past Surgical History: Hysterectomy, Other Additional Past Surgical Histo: hernia, bladder (MARIVEL MCDANIEL) Smoking Status: Never Smoker Alcohol Use: None Drug Use: None (MARIVEL MCDANIEL) General Adult EDM: Chief Complaint: SHORTNESS OF BREATH HPI: HPI: Patient is a 55 year old female with history of hypertension, diabetes type 2, high cholesterol, left bundle branch block who presents with increased shortness of breath after testing COVID+ 5 days ago. She reports additional symptoms of dyspnea on exertion, palpitations, back pain, diarrhea. Patient reports her symptoms began on Tuesday (1 week ago), but got significantly worse this morning around 5:00 AM. She states that she has significant dyspnea on exertion and that her heart rate "jumps up" when she becomes short of breath. Additionally, 3 days ago, patient states she passed a bowel movement, stood up and "passed out." She now has 9/10 back pain with radiation into her lower extremities as a result. Patient "OD'd" at age 13, which led to myocardial damage and developed a LBBB 10 years ago. (MARIVEL MCDANIEL) Review of Systems: Review of Systems: Constitutional: See HPI Eyes: Denies change in visual acuity, visual field deficits or discharge HENT: Denies ear pain, nasal congestion or sore throat Respiratory: See HPI Cardiovascular: Denies chest pain, palpitations or edema GI: Denies abdominal pain, nausea, vomiting, bloody stools or diarrhea : Denies dysuria or hematuria Musculoskeletal: Denies back pain or joint pain Integument: Denies rash or other skin lesion Neurologic: Denies headache, focal weakness or sensory changes (MARIVEL MCDANIEL) Heart Score: C/O Chest Pain: No (MARIVEL MCDANIEL) Allergies: Allergies: Allergies Coded Allergies Type Severity Reaction Last Updated Verified No Known Drug Allergies 07/11/16 No (MARIVEL MCDANIEL) Physical Exam: PE: Constitutional: Well developed, well nourished, well groomed, patient appears fatigued. HENT: Normocephalic, atraumatic, bilateral external ears without deformity or discharge, oropharynx moist, no oral exudates, nose without deformity or discharge. Eyes: PERRLA, EOMI, conjunctiva normal, no discharge. Neck: Normal range of motion, no tenderness, supple, no stridor. Cardiovascular: Elevated heart rate with regular rhythm, no obvious murmur. Lungs & Thorax: Bilateral breath sounds diminished, coarse breath sounds in right lower lobe. Abdomen: Bowel sounds normal, soft, no tenderness, no masses, no pulsatile masses. Skin: Warm, dry, no erythema, no rash. Back: No step-off, no midline tenderness, no CVA tenderness. Extremities: No tenderness, no cyanosis, no clubbing, ROM intact, no edema. [] Neurologic: Alert and oriented x4, no focal deficits noted. (MARIVEL MCDANIEL) Current Patient Data: Labs: Laboratory Tests Test 03/10/21 10:20 White Blood Count 9.1 x10^3/uL (4.0-11.0) Red Blood Count 4.51 x10^6/uL (3.50-5.40) Hemoglobin 12.6 g/dL (12.0-15.5) Hematocrit 37.7 % (36.0-47.0) Mean Corpuscular Volume 84 fL (79-100) Mean Corpuscular Hemoglobin 28 pg (25-35) Mean Corpuscular Hemoglobin Concent 34 g/dL (31-37) Red Cell Distribution Width 14.3 % (11.5-14.5) Platelet Count 211 x10^3/uL (140-400) Neutrophils (%) (Auto) 91 % (31-73) Lymphocytes (%) (Auto) 6 % (24-48) Monocytes (%) (Auto) 3 % (0-9) Eosinophils (%) (Auto) 0 % (0-3) Basophils (%) (Auto) 0 % (0-3) Neutrophils # (Auto) 8.3 x10^3/uL (1.8-7.7) Lymphocytes # (Auto) 0.6 x10^3/uL (1.0-4.8) Monocytes # (Auto) 0.2 x10^3/uL (0.0-1.1) Eosinophils # (Auto) 0.0 x10^3/uL (0.0-0.7) Basophils # (Auto) 0.0 x10^3/uL (0.0-0.2) Sodium Level 139 mmol/L (136-145) Potassium Level 3.8 mmol/L (3.5-5.1) Chloride Level 100 mmol/L (98-107) Carbon Dioxide Level 27 mmol/L (21-32) Anion Gap 12 (6-14) Blood Urea Nitrogen 8 mg/dL (7-20) Creatinine 0.9 mg/dL (0.6-1.0) Estimated GFR (Cockcroft-Gault) 78.1 BUN/Creatinine Ratio 9 (6-20) Glucose Level 126 mg/dL (70-99) Lactic Acid Level 1.3 mmol/L (0.4-2.0) Calcium Level 8.3 mg/dL (8.5-10.1) Magnesium Level 2.3 mg/dL (1.8-2.4) Total Bilirubin 0.6 mg/dL (0.2-1.0) Aspartate Amino Transf (AST/SGOT) 52 U/L (15-37) Alanine Aminotransferase (ALT/SGPT) 43 U/L (14-59) Alkaline Phosphatase 96 U/L (46-116) Total Protein 7.7 g/dL (6.4-8.2) Albumin 2.8 g/dL (3.4-5.0) Albumin/Globulin Ratio 0.6 (1.0-1.7) Lipase 73 U/L (73-393) Vital Signs: Vital Signs Date Time Temp Pulse Resp B/P (MAP) Pulse Ox O2 Delivery O2 Flow Rate FiO2 03/10/21 10:33 20 Nasal Cannula 5.0 03/10/21 09:30 98.4 110 25 142/93 (109) 95 Nasal Cannula 4.0 98.4 (MARIVEL MCDANIEL) EKG: EKG: EKG Interpreted by Dr. Mcwilliams 0946: Elevated rate 105 bpm with regular rhythm, no ectopic beats. LBBB (not new). QT 380 ms/QTc 507 ms. No STEMI. (MARIVEL MCDANIEL) Radiology/Procedures: Radiology/Procedures: PROCEDURE: CHEST AP ONLY EXAM: Chest, single view. HISTORY: Short of breath. COMPARISON: 07/07/2020 FINDINGS: A frontal view of the chest is obtained. There is diffuse lower lobe predominant interstitial infiltrate. There is no consolidation, pleural effusion or pneumothorax. There is a stable cardiac silhouette. IMPRESSION: Diffuse lower lobe predominant interstitial infiltrate. Electronically signed by: Simran Kinght MD (03/10/2021 10:06 AM) [id number] (MARIVEL MCDANIEL) Impression: [facility] [address] [place] [address] IMAGING REPORT Signed PATIENT: GABRIELLA TEJADA ACCOUNT: [id number] : 1965 LOCATION: ER AGE: 55 SEX: F EXAM STATUS: REG ER ORD. PHYSICIAN: MARIVEL MCDANIEL REASON: SOB, tachycardia PROCEDURE: CT ANGIOGRAPHY CHEST CTA CHEST History: Shortness of breath, tachycardia. Rule out PE. Comparison: None. Technique: CTA of the pulmonary arteries with intravenous contrast. 3-D postprocessing was performed. Findings: Pulmonary arteries: No pulmonary embolism. Aorta and great vessels: No aneurysm or dissection of the aortic arch or thoracic aorta. Thyroid: No significant abnormalities. Mediastinum and clark: No mediastinal masses or adenopathy is seen. Esophagus: Small sliding hiatal hernia Heart: The heart is normal in size. There is no pericardial effusion. Airways, Lungs, Pleura: Airways are clear. There are moderate panlobular groundglass airspace opacities. No pleural effusion or pneumothorax. Upper abdomen: Limited evaluation of the upper abdomen is unremarkable. Osseous structures and soft tissues: Within normal limits for age. Impression: 1. No pulmonary embolism, aortic aneurysm or aortic dissection. 2. Moderate acosta lobar groundglass opacities concerning for multifocal infection such as Covid 19 pneumonia. ------ Exposure: One or more of the following individualized dose reduction techniques were utilized for this examination: 1. Automated exposure control 2. Adjustment of the mA and/or kV according to patient size 3. Use of iterative reconstruction technique. Electronically signed by: Elian Abreu MD (03/10/2021 12:23 PM) [id number] DICTATED and SIGNED BY: ELIAN ABREU MD DATE: 03/10/21 [id number] [facility] [address] [place] [address] IMAGING REPORT Signed PATIENT: GABRIELLA TEJADA ACCOUNT: [id number] : 1965 LOCATION: ER AGE: 55 SEX: F EXAM STATUS: REG ER ORD. PHYSICIAN: MARIVEL MCDANIEL REASON: fall w back pain PROCEDURE: CT LUMBAR SPINE WO CONTRAST CT THORACIC SPINE RECONSTRUCT, CT LUMBAR SPINE WO History: Fall with back pain. Technique: Dedicated CT reconstruction of the thoracic spine. Noncontrast CT of the lumbar spine. Comparison: CT chest obtained concurrently. Lumbar spine radiographs 08/23/2020. Findings: There is variant anatomy with 11 rib-bearing thoracic vertebral bodies, and 6 nonrib-bearing lumbar type vertebral bodies. L6 is partially sacralized with rudimentary disc and pseudoarticulating right transverse process. Vertebral body heights are maintained. No fracture is identified. Alignment is normal without spondylolisthesis. There are mild marginal osteophytes in the thoracic spine. Mild disc space narrowing in the lumbar spine at L5 L6. No significant spinal canal or foraminal stenoses are identified. Redemonstrated are panlobular groundglass opacities concerning for multifocal infection. The soft tissues incidentally visualized in the abdomen and pelvis are unremarkable. Impression: 1. No acute osseous abnormality in the thoracic and lumbar spine. Exposure: One or more of the following individualized dose reduction techniques were utilized for this examination: 1. Automated exposure control 2. Adjustment of the mA and/or kV according to patient size 3. Use of iterative reconstruction technique. Electronically signed by: Elian Abreu MD (03/10/2021 12:34 PM) [id number] DICTATED and SIGNED BY: ELIAN ABREU MD DATE: 03/10/21 [id number] 0 (DEANDRE MCWILLIAMS MD) Course & Med Decision Making: Course & Med Decision Making Pertinent Labs and Imaging studies reviewed. (See chart for details) Patient is a 55-year-old female known COVID-positive who presents with hypoxia and shortness of breath. She will be admitted to the hospitalist service. Dr. Keyur fernandez accepts patient. (MARIVEL MCDANIEL) Course & Med Decision Making I have reviewed the PA/FORK LIFT MECHANIC's note and plan of care. I was available for consultation as needed during the patient's visit in the emergency department. I agree with the clinical impression, plan, and disposition. (DEANDRE MCWILLIAMS MD) Dragon Disclaimer: Dragon Disclaimer: This electronic medical record was generated, in whole or in part, using a voice recognition dictation system. (MARIVEL MCDANIEL) Departure Departure Impression: Primary Impression: Acute respiratory failure due to COVID-19 Additional Impressions: Hypoxia History of left bundle branch block (LBBB) Disposition: ADMITTED INPATIENT Admitting Physician: TANNER Pierre) (MARIVEL MCDANIEL) Condition: GUARDED Referrals: JOSE MCCLURE MD (PCP) MARIVEL MCDANIEL Mar 10, 2021 09:36 DEANDRE MCWILLIAMS MD Mar 10, 2021 15:49
[2021-03-10] MEDS ORDERED: fentaNYL PF VIAL 100 MCG/2 ML VIAL IVP ONE (09:45)
[2021-03-10] MEDS ORDERED: IV NORMAL SALINE 1000ML BAG 1,000 ML IV ONE (09:45)
--- NOTE | 2021-03-10 10:08 | RAD ---
EXAM: Chest, single view. HISTORY: Short of breath. COMPARISON: 07/07/2020 FINDINGS: A frontal view of the chest is obtained. There is diffuse lower lobe predominant interstiti al infiltrate. There is no consolidation, pleural effusion or pneumothorax. There is a stable cardiac silhouette. IMPRESSION: Diffuse lower lobe predominant interstitial infiltrate. Electronically signed by: Simran Knight MD (03/10/2021 10:06 AM) [id number]
[2021-03-10 10:37] LABS: BASO % 0 % (0-3); EOS % 0 % (0-3); HEMATOCRIT 37.7 % (36.0-47.0); HEMOGLOBIN 12.6 g/dL (12.0-15.5); LYMPH # 0.6 x10^3/uL (1.0-4.8); LYMPH % 6 % (24-48); MEAN CORPUSCULAR HEMOGLOBIN 28 pg (25-35); MEAN CORPUSCULAR HGB CONC 34 g/dL (31-37); MEAN CORPUSCULAR VOLUME 84 fL (79-100); MONO # 0.2 x10^3/uL (0.0-1.1); MONO % 3 % (0-9); NEUT # 8.3 x10^3/uL (1.8-7.7); NEUT % 91 % (31-73); PLATELET COUNT 211 x10^3/uL (140-400); RED BLOOD COUNT 4.51 x10^6/uL (3.50-5.40); RED CELL DISTRIBUTION WIDTH 14.3 % (11.5-14.5); WHITE BLOOD COUNT 9.1 x10^3/uL (4.0-11.0)
[2021-03-10 10:55] LABS: CALCIUM 8.3 mg/dL (8.5-10.1); CREATININE 0.9 mg/dL (0.6-1.0); GFR 78.1; POTASSIUM 3.8 mmol/L (3.5-5.1)
[2021-03-10 10:58] LABS: ALBUMIN 2.8 g/dL (3.4-5.0); ALBUMIN/GLOBULIN RATIO 0.6 (1.0-1.7); MAGNESIUM 2.3 mg/dL (1.8-2.4); TOTAL BILIRUBIN 0.6 mg/dL (0.2-1.0); TOTAL PROTEIN 7.7 g/dL (6.4-8.2)
[2021-03-10] MEDS ORDERED: IOHEXOL 350 MG/ML 100 ML VIAL. IV ONE (11:00)
[2021-03-10] MEDS ORDERED: CONTRAST GIVEN. MC PRN (11:15)
--- NOTE | 2021-03-10 12:26 | RAD ---
CTA CHEST History: Shortness of breath, tachycardia. Rule out PE. Comparison: None. Technique: CTA of the pulmonary arteries with intravenous contrast. 3-D postprocessing was performed. Findings: Pulmonary arteries: No pulmonary embolism. Aorta and great vessels: No aneurysm or dissection of the aortic arch or thoracic aorta. Thyroid: No significant abnormalities. Mediastinum and clark: No mediastinal masses or adenopathy is seen. Esophagus: Small sliding hiatal hernia Heart: The heart is normal in size. There is no pericardial effusion. Airways, Lungs, Pleura: Airways are clear. There are moderate panlobular groundglass airspace opaciti es. No pleural effusion or pneumothorax. Upper abdomen: Limited evaluation of the upper abdomen is unremarkable. Osseous structures and soft tissues: Within normal limits for age. Impression: 1. No pulmonary embolism, aortic aneurysm or aortic dissection. 2. Moderate acosta lobar groundglass opacities concerning for multifocal infection such as Covid 19 pne umonia. ------ Exposure: One or more of the following individualized dose reduction techniques were utilized for thi s examination: 1. Automated exposure control 2. Adjustment of the mA and/or kV according to patient size 3. Use of iterative reconstruction technique. Electronically signed by: Elian Aguillon MD (03/10/2021 12:23 PM) [id number]
--- NOTE | 2021-03-10 12:36 | RAD ---
CT THORACIC SPINE RECONSTRUCT, CT LUMBAR SPINE WO History: Fall with back pain. Technique: Dedicated CT reconstruction of the thoracic spine. Noncontrast CT of the lumbar spine. Comparison: CT chest obtained concurrently. Lumbar spine radiographs 08/23/2020. Findings: There is variant anatomy with 11 rib-bearing thoracic vertebral bodies, and 6 nonrib-bearing lumbar t ype vertebral bodies. L6 is partially sacralized with rudimentary disc and pseudoarticulating right t ransverse process. Vertebral body heights are maintained. No fracture is identified. Alignment is normal without spondyl olisthesis. There are mild marginal osteophytes in the thoracic spine. Mild disc space narrowing in the lumbar sp ine at L5 L6. No significant spinal canal or foraminal stenoses are identified. Redemonstrated are panlobular groundglass opacities concerning for multifocal infection. The soft tis sues incidentally visualized in the abdomen and pelvis are unremarkable. Impression: 1. No acute osseous abnormality in the thoracic and lumbar spine. Exposure: One or more of the following individualized dose reduction techniques were utilized for thi s examination: 1. Automated exposure control 2. Adjustment of the mA and/or kV according to patient size 3. Use of iterative reconstruction technique. Electronically signed by: Elian Aguillon MD (03/10/2021 12:34 PM) [id number]
[2021-03-10] MEDS ORDERED: fentaNYL PF VIAL 100 MCG/2 ML VIAL IVP PRN (12:45)
[2021-03-10 13:17] LABS: BILIRUBIN,URINE NEGATIVE (NEG); CLARITY,URINE CLEAR; COLOR,URINE YELLOW; NITRITE,URINE NEGATIVE (NEG); PROTEIN,URINE 30 mg/dL (NEG-TRACE); UROBILINOGEN,URINE 0.2 mg/dL (0.2 mg/dL)
--- NOTE | 2021-03-10 13:47 | HP ---
DATE OF SERVICE: 03/10/2021 ADMIT DATE: 03/10/2021 CHIEF COMPLAINT: Shortness of breath. HISTORY OF PRESENT ILLNESS: The patient is a pleasant 55-year-old female who tested positive for COVID-19 five days ago. She has been trying to do outpatient therapy, but her symptoms are worsening. Now, she is short of breath. She got a cough. She is weak, appears depressed and scared. I discussed the case with ER physician. She is hypoxic, requiring 4 liters of nasal cannula. Should be noted she also has a syncopal episode after a bowel movement. We are going to admit the patient and give our COVID protocol. PAST MEDICAL HISTORY: Arrhythmias, bronchitis, diabetes, hypertension, left bundle branch block, vertigo, hysterectomy, hernia repair, bladder repair. ALLERGIES: None. FAMILY HISTORY: Diabetes. SOCIAL HISTORY: She does not drink, smoke or take drugs. MEDICATIONS: Reviewed, please refer to the MRAD. REVIEW OF SYSTEMS: GENERAL: No history of weight change, weakness or fevers. SKIN: No bruising, hair changes or rashes. EYES: No blurred, double or loss of vision. NOSE AND THROAT: No history of nosebleeds, hoarseness or sore throat. HEART: No history of palpitations, chest pain or shortness of breath on exertion. LUNGS: She complains of shortness of breath, cough. GASTROINTESTINAL: Denies changes in appetite, nausea, vomiting, diarrhea or constipation. GENITOURINARY: No history of frequency, urgency, hesitancy or nocturia. NEUROLOGIC: Denies history of numbness, tingling, tremor or weakness. PSYCHIATRIC: No history of panic, anxiety or depression. ENDOCRINE: No history of heat or cold intolerance, polyuria or polydipsia. EXTREMITIES: Denies muscle weakness, joint pain, pain on walking or stiffness. PHYSICAL EXAMINATION: VITALS: Within normal limits and are stable. GENERAL: No apparent distress. Alert and oriented. HEENT: Normal cephalic atraumatic, external auditory canals are patent EYES: Extraocular muscles are intact, pupils are equally round and reactive to light and accommodation MUSCULOSKELETAL: Well developed, well nourished, good range of motion ENDOCRINE: No thyromegaly was palpated LYMPHATICS: No cervical chain or axillary nodes were noted HEMATOPOIETIC: No bruising NECK: Supple, no JVD, no thyromegaly was noted. LUNGS: She has bibasilar crackles. HEART: RRR, S1, S2 present. Peripheral pulses intact, no obvious murmurs were noted. ABDOMEN: Soft, nontender. Positive bowel sounds no organomegaly, normal bowel sounds. EXTREMITIES: Without any cyanosis, clubbing, or edema. Pedal pulses intact, Homans sign is negative. NEUROLOGIC: Normal speech, normal tone. A and O x 3, moves all extremities, no obvious focal deficits. PSYCHIATRIC: Normal affect, normal mood. Stable. SKIN: No ulcerations or rashes, good skin turgor, no jaundice. VASCULAR: Good capillary refill, neurovascular bundle appears to be intact. LABORATORY DATA: White count is 9. Electrolytes are normal. COVID testing is pending. CT of the chest was negative. Chest x-ray shows diffuse lower lobe interstitial infiltrate. ASSESSMENT AND PLAN: Probable COVID-19 respiratory failure. The patient has been admitted. We will start COVID protocol. Home meds. DVT prophylaxis. Full code. IV antibiotics, IV remdesivir, beta agonist, vitamins and minerals, oxygen, codeine cough syrup, aspirin, Lovenox. Prognosis guarded. LEEANNE DR: DANILO/samra TID: [id number]
[2021-03-10 13:50] VITALS: BP 132/69
[2021-03-10 13:53] LABS: BACTERIA,URINE FEW /HPF (0-FEW); RBC,URINE 0 /HPF (0-2); WBC,URINE OCC /HPF (0-4)
[2021-03-10] MEDS ORDERED: REMDESIVIR LOAD in IV NORMAL SALINE 250ML TV IV ONE (14:00)
--- NOTE | 2021-03-10 14:18 | EKG ---
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
[2021-03-10 15:00] VITALS: BP 133/69
[2021-03-10] MEDS: HYDROcodone/APAP 5/325MG 1 TAB TABLET PO PRN ×2 (15:07→20:34)
[2021-03-10] MEDS: methylPREDNISolone SOD SUCC PF 40 MG/ML VIAL. IV SCH ×2 (15:07→20:21)
[2021-03-10] MEDS: cefTRIAXone IV Push 1 GM VIAL. IVP SCH (15:07)
[2021-03-10] MEDS: ASPIRIN CHEWABLE 81 MG TABLET. PO SCH (15:07)
[2021-03-10] MEDS: DOXYCYCLINE HYCLATE 100 MG in IV DEXTROSE 5% 100ML 100 ML IV SCH ×2 (15:08→20:22)
[2021-03-10] MEDS: MULTIVITAMIN with MINERAL TABLET. PO SCH (15:10)
[2021-03-10] MEDS: ENOXAPARIN 40 MG/0.4 ML SYRINGE. SQ SCH ×2 (15:10→20:21)
[2021-03-10 19:00] VITALS: BP 127/68
[2021-03-10] MEDS: CYCLOBENZAPRINE 10 MG TABLET. PO PRN (20:34)
[2021-03-10 23:00] VITALS: BP 120/58
[2021-03-11 03:00] VITALS: BP 130/63
[2021-03-11 07:00] VITALS: BP 134/75
--- NOTE | 2021-03-11 08:31 | PDOC ---
PULMONARY PROGRESS NOTES DATE: 03/11/21 TIME: 08:30 Vitals Vital Signs Date Time Temp Pulse Resp B/P (MAP) Pulse Ox O2 Delivery O2 Flow Rate FiO2 03/11/21 07:00 98.4 93 16 134/75 (94) 91 Nasal Cannula 4.0 98.4 Lungs: Clear Labs Laboratory Tests Test 03/10/21 10:20 03/10/21 12:40 White Blood Count 9.1 x10^3/uL (4.0-11.0) Red Blood Count 4.51 x10^6/uL (3.50-5.40) Hemoglobin 12.6 g/dL (12.0-15.5) Hematocrit 37.7 % (36.0-47.0) Mean Corpuscular Volume 84 fL (79-100) Mean Corpuscular Hemoglobin 28 pg (25-35) Mean Corpuscular Hemoglobin Concent 34 g/dL (31-37) Red Cell Distribution Width 14.3 % (11.5-14.5) Platelet Count 211 x10^3/uL (140-400) Neutrophils (%) (Auto) 91 % (31-73) Lymphocytes (%) (Auto) 6 % (24-48) Monocytes (%) (Auto) 3 % (0-9) Eosinophils (%) (Auto) 0 % (0-3) Basophils (%) (Auto) 0 % (0-3) Neutrophils # (Auto) 8.3 x10^3/uL (1.8-7.7) Lymphocytes # (Auto) 0.6 x10^3/uL (1.0-4.8) Monocytes # (Auto) 0.2 x10^3/uL (0.0-1.1) Eosinophils # (Auto) 0.0 x10^3/uL (0.0-0.7) Basophils # (Auto) 0.0 x10^3/uL (0.0-0.2) Sodium Level 139 mmol/L (136-145) Potassium Level 3.8 mmol/L (3.5-5.1) Chloride Level 100 mmol/L (98-107) Carbon Dioxide Level 27 mmol/L (21-32) Anion Gap 12 (6-14) Blood Urea Nitrogen 8 mg/dL (7-20) Creatinine 0.9 mg/dL (0.6-1.0) Estimated GFR (Cockcroft-Gault) 78.1 BUN/Creatinine Ratio 9 (6-20) Glucose Level 126 mg/dL (70-99) Lactic Acid Level 1.3 mmol/L (0.4-2.0) Calcium Level 8.3 mg/dL (8.5-10.1) Magnesium Level 2.3 mg/dL (1.8-2.4) Total Bilirubin 0.6 mg/dL (0.2-1.0) Aspartate Amino Transf (AST/SGOT) 52 U/L (15-37) Alanine Aminotransferase (ALT/SGPT) 43 U/L (14-59) Alkaline Phosphatase 96 U/L (46-116) Total Protein 7.7 g/dL (6.4-8.2) Albumin 2.8 g/dL (3.4-5.0) Albumin/Globulin Ratio 0.6 (1.0-1.7) Lipase 73 U/L (73-393) Urine Collection Type Unknown Urine Color Yellow Urine Clarity Clear Urine pH 6.0 (<5.0-8.0) Urine Specific [place] >=1.030 (1.000-1.030) Urine Protein 30 mg/dL (NEG-TRACE) Urine Glucose (UA) Negative mg/dL (NEG) Urine Ketones (Stick) 15 mg/dL (NEG) Urine Blood Negative (NEG) Urine Nitrite Negative (NEG) Urine Bilirubin Negative (NEG) Urine Urobilinogen Dipstick 0.2 mg/dL (0.2 mg/dL) Urine Leukocyte Esterase Negative (NEG) Urine RBC 0 /HPF (0-2) Urine WBC Occ /HPF (0-4) Urine Squamous Epithelial Cells Mod /LPF Urine Bacteria Few /HPF (0-FEW) Urine Mucus Slight /LPF Laboratory Tests Test 03/10/21 10:20 03/10/21 12:40 White Blood Count 9.1 x10^3/uL (4.0-11.0) Red Blood Count 4.51 x10^6/uL (3.50-5.40) Hemoglobin 12.6 g/dL (12.0-15.5) Hematocrit 37.7 % (36.0-47.0) Mean Corpuscular Volume 84 fL (79-100) Mean Corpuscular Hemoglobin 28 pg (25-35) Mean Corpuscular Hemoglobin Concent 34 g/dL (31-37) Red Cell Distribution Width 14.3 % (11.5-14.5) Platelet Count 211 x10^3/uL (140-400) Neutrophils (%) (Auto) 91 % (31-73) Lymphocytes (%) (Auto) 6 % (24-48) Monocytes (%) (Auto) 3 % (0-9) Eosinophils (%) (Auto) 0 % (0-3) Basophils (%) (Auto) 0 % (0-3) Neutrophils # (Auto) 8.3 x10^3/uL (1.8-7.7) Lymphocytes # (Auto) 0.6 x10^3/uL (1.0-4.8) Monocytes # (Auto) 0.2 x10^3/uL (0.0-1.1) Eosinophils # (Auto) 0.0 x10^3/uL (0.0-0.7) Basophils # (Auto) 0.0 x10^3/uL (0.0-0.2) Sodium Level 139 mmol/L (136-145) Potassium Level 3.8 mmol/L (3.5-5.1) Chloride Level 100 mmol/L (98-107) Carbon Dioxide Level 27 mmol/L (21-32) Anion Gap 12 (6-14) Blood Urea Nitrogen 8 mg/dL (7-20) Creatinine 0.9 mg/dL (0.6-1.0) Estimated GFR (Cockcroft-Gault) 78.1 BUN/Creatinine Ratio 9 (6-20) Glucose Level 126 mg/dL (70-99) Lactic Acid Level 1.3 mmol/L (0.4-2.0) Calcium Level 8.3 mg/dL (8.5-10.1) Magnesium Level 2.3 mg/dL (1.8-2.4) Total Bilirubin 0.6 mg/dL (0.2-1.0) Aspartate Amino Transf (AST/SGOT) 52 U/L (15-37) Alanine Aminotransferase (ALT/SGPT) 43 U/L (14-59) Alkaline Phosphatase 96 U/L (46-116) Total Protein 7.7 g/dL (6.4-8.2) Albumin 2.8 g/dL (3.4-5.0) Albumin/Globulin Ratio 0.6 (1.0-1.7) Lipase 73 U/L (73-393) Urine Collection Type Unknown Urine Color Yellow Urine Clarity Clear Urine pH 6.0 (<5.0-8.0) Urine Specific [place] >=1.030 (1.000-1.030) Urine Protein 30 mg/dL (NEG-TRACE) Urine Glucose (UA) Negative mg/dL (NEG) Urine Ketones (Stick) 15 mg/dL (NEG) Urine Blood Negative (NEG) Urine Nitrite Negative (NEG) Urine Bilirubin Negative (NEG) Urine Urobilinogen Dipstick 0.2 mg/dL (0.2 mg/dL) Urine Leukocyte Esterase Negative (NEG) Urine RBC 0 /HPF (0-2) Urine WBC Occ /HPF (0-4) Urine Squamous Epithelial Cells Mod /LPF Urine Bacteria Few /HPF (0-FEW) Urine Mucus Slight /LPF Medications Active Scripts Medications Dose Route/Sig Max Daily Dose Days Date Category Acetaminophen-Cod #3 Tablet (Acetaminophen/Codeine Phosphate) 1 Each Tablet 1 Tab PO PRN Q6HRS PRN 3 08/23/20 Rx Cyclobenzaprine Hcl 10 Mg Tablet 1 Tab PO TID PRN 5 08/23/20 Rx Amlodipine Besylate 10 Mg Tablet 10 Mg PO DAILY 07/09/20 Rx Quetiapine Fumarate 50 Mg Tablet 1 Tab PO QHS 30 07/07/20 Reported Bupropion Xl (Bupropion Hcl) 300 Mg Tab.er.24h 1 Tab PO QHS 30 07/07/20 Reported Paroxetine Hcl 20 Mg Tablet 1 Tab PO DAILY 30 07/07/20 Reported Meclizine Hcl 25 Mg Tablet 1 Tab PO TID 07/28/18 Rx Metoprolol Succinate ( Xl ) (Metoprolol Succinate) 25 Mg Tab.er.24h 25 Mg PO DAILY 30 03/03/18 Rx Topamax (Topiramate) 25 Mg Tablet 25 Mg PO BID 30 03/03/18 Rx Cetirizine Hcl 10 Mg Tablet 10 Mg PO DAILY 30 03/03/18 Rx Ativan (Lorazepam) 0.5 Mg Tablet 0.5 Mg PO TID 12/22/16 Rx Fluticasone Propionate Nasal [place] (Fluticasone Propionate) 16 Gm [place].susp 2 [place] NS DAILY 07/11/16 Reported Atorvastatin Calcium 20 Mg Tablet 1 Tab PO DAILY 07/11/16 Reported Impression . Note dictated Agree with current medical management Continue support for respiratory failure related to COVID-19 viral pneumonia KATY RAMÍREZ MD Mar 11, 2021 08:31
[2021-03-11] MEDS: guaiFENesin/CODEINE 100mg/10mg 5 ML LIQUID PO PRN ×3 (09:51→23:08)
[2021-03-11] MEDS: ASPIRIN CHEWABLE 81 MG TABLET. PO SCH (09:51)
[2021-03-11] MEDS: ENOXAPARIN 40 MG/0.4 ML SYRINGE. SQ SCH ×2 (09:51→23:02)
[2021-03-11] MEDS: MULTIVITAMIN with MINERAL TABLET. PO SCH (09:52)
[2021-03-11] MEDS: methylPREDNISolone SOD SUCC PF 40 MG/ML VIAL. IV SCH ×2 (09:52→23:02)
[2021-03-11] MEDS: DOXYCYCLINE HYCLATE 100 MG in IV DEXTROSE 5% 100ML 100 ML IV SCH ×2 (09:53→23:02)
--- NOTE | 2021-03-11 09:59 | NUR ---
SW following. Discussed with RN, pt from home with , 6L (does not use oxygen at home), cardiac diet, COVID-19 positive. ID and Pulmonology following. Pt getting Remdesivir. SW will continue to follow.
--- NOTE | 2021-03-11 10:02 | CONS ---
DATE OF CONSULTATION: 03/11/2021 REQUESTING PHYSICIAN: Delmy Baer DO. REASON FOR CONSULTATION: COVID-19 positive. HISTORY OF PRESENT ILLNESS: This is a 55-year-old moderately obese female who has COVID test positive for about 5 days before her coming to the ER. The patient started with a sore throat, weakness, and fever and eventually had shortness of breath. The patient is now requiring 7 liters of oxygen. The patient denies any nausea, vomiting, diarrhea. Denies any chest pain. Does have shortness of breath. Denies any fever. The patient is on remdesivir and steroids and consult has been requested. PAST MEDICAL HISTORY: Positive for morbid obesity. The patient also has a history of diabetes, hypertension, history of arrhythmias, bundle branch block, has had bladder repair done, hysterectomy and hernia repair done. SOCIAL HISTORY: Negative for smoking, alcohol use or drug use. ALLERGIES: No known drug allergies. CURRENT MEDICATIONS: Reviewed. REVIEW OF SYSTEMS: As per HPI. All other systems reviewed are negative. PHYSICAL EXAMINATION: GENERAL: Alert, oriented female, not in distress. VITAL SIGNS: Stable. Temperature 98.4, pulse 93, respirations 16, blood pressure 134/75. HEENT: Both pupils are round and reacting. No conjunctival lesion, no lesion in the mouth. NECK: Supple, no JVP, no lymphadenopathy. LUNGS: Clear. HEART: S1, S2, regular. ABDOMEN: Soft, nontender, no organomegaly. EXTREMITIES: No edema, no cyanosis. SKIN: Unremarkable. NEUROLOGIC: The patient is alert, awake, and appropriate. No focal neurologic deficit. LABORATORY DATA: White count is normal, platelets are normal. BUN and creatinine is normal. Lactic acid is 1.3. Urinalysis unremarkable. The CT of the lumbar and thoracic spine done is unremarkable. CT angio showed no pulmonary embolism, bilateral ground-glass opacity. IMPRESSION: 1. COVID-19 positive. 2. Pulmonary infiltrate. 3. Hypoxic respiratory failure. 4. Morbid obesity. 5. Diabetes. 6. Hypertension. 7. Bundle branch block. RECOMMENDATIONS: Continue steroids, continue remdesivir to give 5 days. I would also consider giving baricitinib, will get a CRP, ferritin and procalcitonin. Thank you very much, Dr. Baer, for giving me opportunity to participate in this patient's care. DAYAMI/PRA DR: DAYAMI/samra TID: [id number]
[2021-03-11 11:00] VITALS: BP 149/74
--- NOTE | 2021-03-11 14:20 | CONS ---
DATE OF CONSULTATION: 03/11/2021 ATTENDING PHYSICIAN: Delmy Baer DO. REASON FOR CONSULTATION: The patient is seen in pulmonary consultation at the request of Dr. Baer for respiratory failure, COVID-19 positivity, the patient currently requiring anywhere between 4-8 liters of oxygen. HISTORY OF PRESENT ILLNESS: The patient is a 55-year-old that tested for COVID approximately a week ago. She did not improve as an outpatient, presented with increasing shortness of breath. She was found to be hypoxic, placed on oxygen supplementation. I reviewed her CT chest. There was no evidence of pulmonary emboli. There was bilateral ground glass opacities compatible with COVID-19. The patient was seen in consult by Infectious Disease service. She is currently on steroids, remdesivir. CRP for the possibility of adding baricitinib is pending. The patient is unvaccinated. She states that multiple family members had similar type of symptoms. She has never smoked. She has a history of mild asthma. PAST MEDICAL HISTORY: Remarkable for diabetes, hypertension, previous hysterectomy, hernia repair, bladder repair. She also has a history of left bundle branch block. ALLERGIES: No known drug allergies. FAMILY HISTORY: Diabetes. SOCIAL HISTORY: She does not drink alcohol or use tobacco. REVIEW OF SYSTEMS: As indicated above, otherwise a 10-point system was reviewed and negative. PHYSICAL EXAMINATION: VITAL SIGNS: Stable. O2 saturation greater than 92%. NECK: Jugular venous distention was not elevated. No lymphadenopathy. CHEST: Full expansion. LUNGS: Adequate flow with no wheezes. CARDIOVASCULAR: Regular rate and rhythm with S1, S2, no S3. ABDOMEN: Soft, nontender, nondistended. EXTREMITIES: No clubbing, cyanosis or edema. LABORATORY DATA: Reviewed. White count was normal, hemoglobin and hematocrit were noted. Electrolytes were noted. BUN and creatinine normal. AST slightly elevated. CT as indicated above. IMPRESSION: 1. Acute respiratory failure secondary to COVID-19 viral pneumonia. 2. COVID-[address] viral pneumonia[address] chest, compatible with a viral pneumonia. 4. Morbid obesity. 5. Hypertension. 6. Diabetes. 7. Mild history of asthma. PLAN: 1. Continue current steroids. 2. Continue IV remdesivir. 3. Follow up on CRP, the patient may be a candidate for baricitinib. 4. DVT prophylaxis. I do appreciate the privilege in sharing in the patient's care. SS/MELISSA DR: Odette TID: [id number]
[2021-03-11 15:00] VITALS: BP 140/65
[2021-03-11] MEDS: cefTRIAXone IV Push 1 GM VIAL. IVP SCH (15:00)
[2021-03-11] MEDS: REMDESIVIR 100mg in NORMAL SALINE 250ML X 4 DAYS IV SCH (15:00)
[2021-03-11] MEDS: HYDROcodone/APAP 5/325MG 1 TAB TABLET PO PRN ×2 (15:45→23:08)
--- NOTE | 2021-03-11 16:16 | PDOC ---
[facility] PROGRESS NOTE Date of Service DOS: DATE: 03/11/21 TIME: 16:15 Chief Complaint Chief Complaint Probable COVID-19 respiratory failure. The patient has been admitted. We will start COVID protocol. Home meds. DVT prophylaxis. Full code. IV antibiotics, IV remdesivir, beta agonist, vitamins and minerals, oxygen, codeine cough syrup, aspirin, Lovenox. Prognosis guarded. History of Present Illness History of Present Illness 03/11 Patient evaluated examined at bedside. She was on nasal cannula resting in bed. Continue COVID treatments which she is agreeable to. Pulmonary and infectious disease following. Plan of care discussed with bedside RN. Vitals/I&O Vitals/I&O: Vital Signs Date Time Temp Pulse Resp B/P (MAP) Pulse Ox O2 Delivery O2 Flow Rate FiO2 03/11/21 15:45 Nasal Cannula 8.0 03/11/21 11:00 97.6 94 18 149/74 (99) 95 97.6 I & O 03/10/21 03/10/21 03/11/21 15:00 23:00 07:00 Intake Total 1000 ml 100 ml 100 ml Output Total 200 ml Balance 1000 ml -100 ml 100 ml Physical Exam General: Alert, Oriented X3, Cooperative Heart: Regular rate, Normal S1 Lungs: Clear Abdomen: Normal bowel sounds, Soft, No tenderness Extremities: No edema, Normal pulses Skin: No significant lesion Assessment and Plan Assessmemt and Plan Problems Medical Problems: (1) Acute respiratory failure due to COVID-19 Status: Acute (2) History of left bundle branch block (LBBB) Status: Acute (3) Hypoxia Status: Acute Comment Review of Relevant I have reviewed the following items iris (where applicable) has been applied. Medications: Current Medications Medications (Trade) Dose Ordered Sig/Dirk Route PRN Reason Start Time Stop Time Status Last Admin Dose Admin Remdesivir 100 mg/ Sodium Chloride 230 ml @ 460 mls/hr Q24H IV 03/11/21 14:00 03/14/21 14:29 03/11/21 15:00 Cyclobenzaprine HCl (Flexeril) 10 mg PRN Q8HRS PRN PO MUSCLE SPASMS 03/10/21 16:45 03/10/21 20:34 Justifications for Admission Other Justification ASHLEY ALMAGUER MD Mar 11, 2021 16:16
[2021-03-11 19:00] VITALS: BP 126/71
[2021-03-11 23:00] VITALS: BP 122/65
[2021-03-11] MEDS: LACTOBACILLUS RHAMNOSUS GG 1 CAPSULE. PO SCH (23:03)
[2021-03-12 03:16] VITALS: BP 121/63
[2021-03-12 03:31] LABS: BASO % 0 % (0-3); EOS % 0 % (0-3); HEMOGLOBIN 12.2 g/dL (12.0-15.5); LYMPH # 1.4 x10^3/uL (1.0-4.8); LYMPH % 11 % (24-48); MEAN CORPUSCULAR HEMOGLOBIN 28 pg (25-35); MEAN CORPUSCULAR HGB CONC 33 g/dL (31-37); MEAN CORPUSCULAR VOLUME 84 fL (79-100); MONO # 0.9 x10^3/uL (0.0-1.1); MONO % 7 % (0-9); NEUT # 9.9 x10^3/uL (1.8-7.7); NEUT % 82 % (31-73); PLATELET COUNT 322 x10^3/uL (140-400); RED CELL DISTRIBUTION WIDTH 14.6 % (11.5-14.5); WHITE BLOOD COUNT 12.1 x10^3/uL (4.0-11.0)
[2021-03-12 03:54] LABS: ALBUMIN 2.5 g/dL (3.4-5.0); ALBUMIN/GLOBULIN RATIO 0.6 (1.0-1.7); GFR 69.1; POTASSIUM 4.1 mmol/L (3.5-5.1); TOTAL BILIRUBIN 0.4 mg/dL (0.2-1.0); TOTAL PROTEIN 6.5 g/dL (6.4-8.2)
[2021-03-12 04:17] LABS: % BANDS 5 % (0-9); % LYMPHS 8 % (24-48); % MONOS 5 % (0-10); % SEGS 82 % (35-66); ANISOCYTOSIS SLIGHT; PLT ESTIMATE ADEQUATE (ADEQUATE); POLYCHROMASIA SLIGHT
[2021-03-12 07:00] VITALS: BP 144/60
--- NOTE | 2021-03-12 08:27 | PDOC ---
PULMONARY PROGRESS NOTES DATE: 03/12/21 TIME: 08:27 Vitals Vital Signs Date Time Temp Pulse Resp B/P (MAP) Pulse Ox O2 Delivery O2 Flow Rate FiO2 03/12/21 03:16 98.2 77 20 121/63 (82) 95 Nasal Cannula 8.0 98.2 Lungs: Clear Labs Laboratory Tests Test 03/10/21 10:20 03/10/21 12:40 03/12/21 03:10 White Blood Count 9.1 x10^3/uL (4.0-11.0) 12.1 x10^3/uL (4.0-11.0) Red Blood Count 4.51 x10^6/uL (3.50-5.40) 4.40 x10^6/uL (3.50-5.40) Hemoglobin 12.6 g/dL (12.0-15.5) 12.2 g/dL (12.0-15.5) Hematocrit 37.7 % (36.0-47.0) 37.0 % (36.0-47.0) Mean Corpuscular Volume 84 fL (79-100) 84 fL (79-100) Mean Corpuscular Hemoglobin 28 pg (25-35) 28 pg (25-35) Mean Corpuscular Hemoglobin Concent 34 g/dL (31-37) 33 g/dL (31-37) Red Cell Distribution Width 14.3 % (11.5-14.5) 14.6 % (11.5-14.5) Platelet Count 211 x10^3/uL (140-400) 322 x10^3/uL (140-400) Neutrophils (%) (Auto) 91 % (31-73) 82 % (31-73) Lymphocytes (%) (Auto) 6 % (24-48) 11 % (24-48) Monocytes (%) (Auto) 3 % (0-9) 7 % (0-9) Eosinophils (%) (Auto) 0 % (0-3) 0 % (0-3) Basophils (%) (Auto) 0 % (0-3) 0 % (0-3) Neutrophils # (Auto) 8.3 x10^3/uL (1.8-7.7) 9.9 x10^3/uL (1.8-7.7) Lymphocytes # (Auto) 0.6 x10^3/uL (1.0-4.8) 1.4 x10^3/uL (1.0-4.8) Monocytes # (Auto) 0.2 x10^3/uL (0.0-1.1) 0.9 x10^3/uL (0.0-1.1) Eosinophils # (Auto) 0.0 x10^3/uL (0.0-0.7) 0.0 x10^3/uL (0.0-0.7) Basophils # (Auto) 0.0 x10^3/uL (0.0-0.2) 0.0 x10^3/uL (0.0-0.2) Sodium Level 139 mmol/L (136-145) 138 mmol/L (136-145) Potassium Level 3.8 mmol/L (3.5-5.1) 4.1 mmol/L (3.5-5.1) Chloride Level 100 mmol/L (98-107) 103 mmol/L (98-107) Carbon Dioxide Level 27 mmol/L (21-32) 24 mmol/L (21-32) Anion Gap 12 (6-14) 11 (6-14) Blood Urea Nitrogen 8 mg/dL (7-20) 21 mg/dL (7-20) Creatinine 0.9 mg/dL (0.6-1.0) 1.0 mg/dL (0.6-1.0) Estimated GFR (Cockcroft-Gault) 78.1 69.1 BUN/Creatinine Ratio 9 (6-20) 21 (6-20) Glucose Level 126 mg/dL (70-99) 168 mg/dL (70-99) Lactic Acid Level 1.3 mmol/L (0.4-2.0) Calcium Level 8.3 mg/dL (8.5-10.1) 8.0 mg/dL (8.5-10.1) Magnesium Level 2.3 mg/dL (1.8-2.4) Total Bilirubin 0.6 mg/dL (0.2-1.0) 0.4 mg/dL (0.2-1.0) Aspartate Amino Transf (AST/SGOT) 52 U/L (15-37) 52 U/L (15-37) Alanine Aminotransferase (ALT/SGPT) 43 U/L (14-59) 52 U/L (14-59) Alkaline Phosphatase 96 U/L (46-116) 96 U/L (46-116) Total Protein 7.7 g/dL (6.4-8.2) 6.5 g/dL (6.4-8.2) Albumin 2.8 g/dL (3.4-5.0) 2.5 g/dL (3.4-5.0) Albumin/Globulin Ratio 0.6 (1.0-1.7) 0.6 (1.0-1.7) Lipase 73 U/L (73-393) Urine Collection Type Unknown Urine Color Yellow Urine Clarity Clear Urine pH 6.0 (<5.0-8.0) Urine Specific [place] >=1.030 (1.000-1.030) Urine Protein 30 mg/dL (NEG-TRACE) Urine Glucose (UA) Negative mg/dL (NEG) Urine Ketones (Stick) 15 mg/dL (NEG) Urine Blood Negative (NEG) Urine Nitrite Negative (NEG) Urine Bilirubin Negative (NEG) Urine Urobilinogen Dipstick 0.2 mg/dL (0.2 mg/dL) Urine Leukocyte Esterase Negative (NEG) Urine RBC 0 /HPF (0-2) Urine WBC Occ /HPF (0-4) Urine Squamous Epithelial Cells Mod /LPF Urine Bacteria Few /HPF (0-FEW) Urine Mucus Slight /LPF Segmented Neutrophils % 82 % (35-66) Band Neutrophils % 5 % (0-9) Lymphocytes % 8 % (24-48) Monocytes % 5 % (0-10) Platelet Estimate Adequate (ADEQUATE) Polychromasia Slight Anisocytosis Slight Laboratory Tests Test 03/12/21 03:10 White Blood Count 12.1 x10^3/uL (4.0-11.0) Red Blood Count 4.40 x10^6/uL (3.50-5.40) Hemoglobin 12.2 g/dL (12.0-15.5) Hematocrit 37.0 % (36.0-47.0) Mean Corpuscular Volume 84 fL (79-100) Mean Corpuscular Hemoglobin 28 pg (25-35) Mean Corpuscular Hemoglobin Concent 33 g/dL (31-37) Red Cell Distribution Width 14.6 % (11.5-14.5) Platelet Count 322 x10^3/uL (140-400) Neutrophils (%) (Auto) 82 % (31-73) Lymphocytes (%) (Auto) 11 % (24-48) Monocytes (%) (Auto) 7 % (0-9) Eosinophils (%) (Auto) 0 % (0-3) Basophils (%) (Auto) 0 % (0-3) Neutrophils # (Auto) 9.9 x10^3/uL (1.8-7.7) Lymphocytes # (Auto) 1.4 x10^3/uL (1.0-4.8) Monocytes # (Auto) 0.9 x10^3/uL (0.0-1.1) Eosinophils # (Auto) 0.0 x10^3/uL (0.0-0.7) Basophils # (Auto) 0.0 x10^3/uL (0.0-0.2) Segmented Neutrophils % 82 % (35-66) Band Neutrophils % 5 % (0-9) Lymphocytes % 8 % (24-48) Monocytes % 5 % (0-10) Platelet Estimate Adequate (ADEQUATE) Polychromasia Slight Anisocytosis Slight Sodium Level 138 mmol/L (136-145) Potassium Level 4.1 mmol/L (3.5-5.1) Chloride Level 103 mmol/L (98-107) Carbon Dioxide Level 24 mmol/L (21-32) Anion Gap 11 (6-14) Blood Urea Nitrogen 21 mg/dL (7-20) Creatinine 1.0 mg/dL (0.6-1.0) Estimated GFR (Cockcroft-Gault) 69.1 BUN/Creatinine Ratio 21 (6-20) Glucose Level 168 mg/dL (70-99) Calcium Level 8.0 mg/dL (8.5-10.1) Total Bilirubin 0.4 mg/dL (0.2-1.0) Aspartate Amino Transf (AST/SGOT) 52 U/L (15-37) Alanine Aminotransferase (ALT/SGPT) 52 U/L (14-59) Alkaline Phosphatase 96 U/L (46-116) Total Protein 6.5 g/dL (6.4-8.2) Albumin 2.5 g/dL (3.4-5.0) Albumin/Globulin Ratio 0.6 (1.0-1.7) Medications Active Scripts Medications Dose Route/Sig Max Daily Dose Days Date Category Acetaminophen-Cod #3 Tablet (Acetaminophen/Codeine Phosphate) 1 Each Tablet 1 Tab PO PRN Q6HRS PRN 3 08/23/20 Rx Cyclobenzaprine Hcl 10 Mg Tablet 1 Tab PO TID PRN 5 08/23/20 Rx Amlodipine Besylate 10 Mg Tablet 10 Mg PO DAILY 07/09/20 Rx Quetiapine Fumarate 50 Mg Tablet 1 Tab PO QHS 30 07/07/20 Reported Bupropion Xl (Bupropion Hcl) 300 Mg Tab.er.24h 1 Tab PO QHS 30 07/07/20 Reported Paroxetine Hcl 20 Mg Tablet 1 Tab PO DAILY 30 07/07/20 Reported Meclizine Hcl 25 Mg Tablet 1 Tab PO TID 07/28/18 Rx Metoprolol Succinate ( Xl ) (Metoprolol Succinate) 25 Mg Tab.er.24h 25 Mg PO DAILY 30 03/03/18 Rx Topamax (Topiramate) 25 Mg Tablet 25 Mg PO BID 30 03/03/18 Rx Cetirizine Hcl 10 Mg Tablet 10 Mg PO DAILY 30 03/03/18 Rx Ativan (Lorazepam) 0.5 Mg Tablet 0.5 Mg PO TID 12/22/16 Rx Fluticasone Propionate Nasal [place] (Fluticasone Propionate) 16 Gm [place].susp 2 [place] NS DAILY 07/11/16 Reported Atorvastatin Calcium 20 Mg Tablet 1 Tab PO DAILY 07/11/16 Reported Impression . Note dictated Agree with current medical management Continue support for respiratory failure related to COVID-19 viral pneumonia KATY RAMÍREZ MD Mar 12, 2021 08:27
[2021-03-12] MEDS: BARICITINIB 2 MG PO SCH ×2 (09:00→09:32)
--- NOTE | 2021-03-12 09:08 | PDOC ---
Infectious Disease Note Subjective Subjective Patient is feeling okay not bad ROS ROS No nausea vomiting diarrhea Vital Sign Vital Signs Vital Signs Date Time Temp Pulse Resp B/P (MAP) Pulse Ox O2 Delivery O2 Flow Rate FiO2 03/12/21 07:00 98.1 20 144/60 (88) 91 Nasal Cannula 8.0 98.1 03/12/21 03:16 77 Physical Exam PHYSICAL EXAM GENERAL: Alert, oriented female, not in distress. VITAL SIGNS: Stable. HEENT: Both pupils are round and reacting. No conjunctival lesion, no lesion in the mouth. NECK: Supple, no JVP, no lymphadenopathy. LUNGS: Clear. HEART: S1, S2, regular. ABDOMEN: Soft, nontender, no organomegaly. EXTREMITIES: No edema, no cyanosis. SKIN: Unremarkable. NEUROLOGIC: The patient is alert, awake, and appropriate. No focal neurologic deficit. Labs Lab Laboratory Tests Test 03/12/21 03:10 White Blood Count 12.1 x10^3/uL (4.0-11.0) Red Blood Count 4.40 x10^6/uL (3.50-5.40) Hemoglobin 12.2 g/dL (12.0-15.5) Hematocrit 37.0 % (36.0-47.0) Mean Corpuscular Volume 84 fL (79-100) Mean Corpuscular Hemoglobin 28 pg (25-35) Mean Corpuscular Hemoglobin Concent 33 g/dL (31-37) Red Cell Distribution Width 14.6 % (11.5-14.5) Platelet Count 322 x10^3/uL (140-400) Neutrophils (%) (Auto) 82 % (31-73) Lymphocytes (%) (Auto) 11 % (24-48) Monocytes (%) (Auto) 7 % (0-9) Eosinophils (%) (Auto) 0 % (0-3) Basophils (%) (Auto) 0 % (0-3) Neutrophils # (Auto) 9.9 x10^3/uL (1.8-7.7) Lymphocytes # (Auto) 1.4 x10^3/uL (1.0-4.8) Monocytes # (Auto) 0.9 x10^3/uL (0.0-1.1) Eosinophils # (Auto) 0.0 x10^3/uL (0.0-0.7) Basophils # (Auto) 0.0 x10^3/uL (0.0-0.2) Segmented Neutrophils % 82 % (35-66) Band Neutrophils % 5 % (0-9) Lymphocytes % 8 % (24-48) Monocytes % 5 % (0-10) Platelet Estimate Adequate (ADEQUATE) Polychromasia Slight Anisocytosis Slight Sodium Level 138 mmol/L (136-145) Potassium Level 4.1 mmol/L (3.5-5.1) Chloride Level 103 mmol/L (98-107) Carbon Dioxide Level 24 mmol/L (21-32) Anion Gap 11 (6-14) Blood Urea Nitrogen 21 mg/dL (7-20) Creatinine 1.0 mg/dL (0.6-1.0) Estimated GFR (Cockcroft-Gault) 69.1 BUN/Creatinine Ratio 21 (6-20) Glucose Level 168 mg/dL (70-99) Calcium Level 8.0 mg/dL (8.5-10.1) Total Bilirubin 0.4 mg/dL (0.2-1.0) Aspartate Amino Transf (AST/SGOT) 52 U/L (15-37) Alanine Aminotransferase (ALT/SGPT) 52 U/L (14-59) Alkaline Phosphatase 96 U/L (46-116) Total Protein 6.5 g/dL (6.4-8.2) Albumin 2.5 g/dL (3.4-5.0) Albumin/Globulin Ratio 0.6 (1.0-1.7) Micro Microbiology 03/10/21 Blood Culture - Preliminary, Resulted NO GROWTH AFTER 1 DAY Objective Assessment IMPRESSION: 1. COVID-19 positive. 2. Pulmonary infiltrate. 3. Hypoxic respiratory failure. 4. Morbid obesity. 5. Diabetes. 6. Hypertension. 7. Bundle branch block. Plan Plan of Care Continue supportive care continue steroids remdesivir and baricitinib DEVON HART MD Mar 12, 2021 09:08
[2021-03-12] MEDS ORDERED: IV NORMAL SALINE 1000ML BAG 1,000 ML IV ONE (09:30)
[2021-03-12] MEDS ORDERED: POLYVINYL ALCOHOL 1.4% OPHTH SOLUTION 15ML BOTTLE. OU PRN (09:30)
[2021-03-12] MEDS: LACTOBACILLUS RHAMNOSUS GG 1 CAPSULE. PO SCH ×2 (09:32→21:26)
[2021-03-12] MEDS: MULTIVITAMIN with MINERAL TABLET. PO SCH (09:32)
[2021-03-12] MEDS: methylPREDNISolone SOD SUCC PF 40 MG/ML VIAL. IV SCH ×2 (09:32→21:26)
[2021-03-12] MEDS: ASPIRIN CHEWABLE 81 MG TABLET. PO SCH (09:32)
[2021-03-12] MEDS: ENOXAPARIN 40 MG/0.4 ML SYRINGE. SQ SCH ×2 (09:33→21:27)
[2021-03-12] MEDS: DOXYCYCLINE HYCLATE 100 MG in IV DEXTROSE 5% 100ML 100 ML IV SCH (09:35)
[2021-03-12 11:00] VITALS: BP 154/78
[2021-03-12] MEDS: HYDROcodone/APAP 5/325MG 1 TAB TABLET PO PRN ×2 (12:34→21:27)
[2021-03-12] MEDS: guaiFENesin/CODEINE 100mg/10mg 5 ML LIQUID PO PRN (12:34)
--- NOTE | 2021-03-12 14:09 | PDOC ---
[employer] PROGRESS NOTE Date of Service DOS: DATE: 03/12/21 TIME: 14:08 Chief Complaint Chief Complaint Probable COVID-19 respiratory failure. The patient has been admitted. We will start COVID protocol. Home meds. DVT prophylaxis. Full code. IV antibiotics, IV remdesivir, beta agonist, vitamins and minerals, oxygen, codeine cough syrup, aspirin, Lovenox. Prognosis guarded. History of Present Illness History of Present Illness 03/12 Patient evaluated examined at bedside. Resting in bed. Requiring high flow linda al cannula's afternoon continue COVID treatment. 03/11 Patient evaluated examined at bedside. She was on nasal cannula resting in bed. Continue COVID treatments which she is agreeable to. Pulmonary and infectious disease following. Plan of care discussed with bedside RN. Vitals/I&O Vitals/I&O: Vital Signs Date Time Temp Pulse Resp B/P (MAP) Pulse Ox O2 Delivery O2 Flow Rate FiO2 03/12/21 12:34 92 High Flow Nasal Cannula 8.0 03/12/21 11:00 98.5 91 20 154/78 (103) 98.5 I & O 03/11/21 03/11/21 03/12/21 15:00 23:00 07:00 Intake Total 490 ml 100 ml Balance 490 ml 100 ml Physical Exam Physical Exam: GENERAL: Alert, oriented female, not in distress. VITAL SIGNS: Stable. HEENT: Both pupils are round and reacting. No conjunctival lesion, no lesion in the mouth. NECK: Supple, no JVP, no lymphadenopathy. LUNGS: Clear. HEART: S1, S2, regular. ABDOMEN: Soft, nontender, no organomegaly. EXTREMITIES: No edema, no cyanosis. SKIN: Unremarkable. NEUROLOGIC: The patient is alert, awake, and appropriate. No focal neurologic deficit. General: Alert, Oriented X3, Cooperative Heart: Regular rate, Normal S1 Lungs: Clear Abdomen: Normal bowel sounds, Soft, No tenderness Extremities: No edema, Normal pulses Skin: No significant lesion Labs Labs: Laboratory Tests Test 03/12/21 03:10 White Blood Count 12.1 x10^3/uL (4.0-11.0) Red Blood Count 4.40 x10^6/uL (3.50-5.40) Hemoglobin 12.2 g/dL (12.0-15.5) Hematocrit 37.0 % (36.0-47.0) Mean Corpuscular Volume 84 fL (79-100) Mean Corpuscular Hemoglobin 28 pg (25-35) Mean Corpuscular Hemoglobin Concent 33 g/dL (31-37) Red Cell Distribution Width 14.6 % (11.5-14.5) Platelet Count 322 x10^3/uL (140-400) Neutrophils (%) (Auto) 82 % (31-73) Lymphocytes (%) (Auto) 11 % (24-48) Monocytes (%) (Auto) 7 % (0-9) Eosinophils (%) (Auto) 0 % (0-3) Basophils (%) (Auto) 0 % (0-3) Neutrophils # (Auto) 9.9 x10^3/uL (1.8-7.7) Lymphocytes # (Auto) 1.4 x10^3/uL (1.0-4.8) Monocytes # (Auto) 0.9 x10^3/uL (0.0-1.1) Eosinophils # (Auto) 0.0 x10^3/uL (0.0-0.7) Basophils # (Auto) 0.0 x10^3/uL (0.0-0.2) Segmented Neutrophils % 82 % (35-66) Band Neutrophils % 5 % (0-9) Lymphocytes % 8 % (24-48) Monocytes % 5 % (0-10) Platelet Estimate Adequate (ADEQUATE) Polychromasia Slight Anisocytosis Slight Sodium Level 138 mmol/L (136-145) Potassium Level 4.1 mmol/L (3.5-5.1) Chloride Level 103 mmol/L (98-107) Carbon Dioxide Level 24 mmol/L (21-32) Anion Gap 11 (6-14) Blood Urea Nitrogen 21 mg/dL (7-20) Creatinine 1.0 mg/dL (0.6-1.0) Estimated GFR (Cockcroft-Gault) 69.1 BUN/Creatinine Ratio 21 (6-20) Glucose Level 168 mg/dL (70-99) Calcium Level 8.0 mg/dL (8.5-10.1) Total Bilirubin 0.4 mg/dL (0.2-1.0) Aspartate Amino Transf (AST/SGOT) 52 U/L (15-37) Alanine Aminotransferase (ALT/SGPT) 52 U/L (14-59) Alkaline Phosphatase 96 U/L (46-116) Total Protein 6.5 g/dL (6.4-8.2) Albumin 2.5 g/dL (3.4-5.0) Albumin/Globulin Ratio 0.6 (1.0-1.7) Assessment and Plan Assessmemt and Plan Problems Medical Problems: (1) Acute respiratory failure due to COVID-19 Status: Acute (2) History of left bundle branch block (LBBB) Status: Acute (3) Hypoxia Status: Acute Comment Review of Relevant I have reviewed the following items iris (where applicable) has been applied. Medications: Current Medications Medications (Trade) Dose Ordered Sig/Dirk Route PRN Reason Start Time Stop Time Status Last Admin Dose Admin Lactobacillus Rhamnosus (Culturelle) 1 cap BID PO 03/11/21 21:00 03/12/21 09:32 Guaifenesin (Mucinex) 600 mg BID PO 03/12/21 08:30 03/12/21 09:32 Sodium Chloride 1,000 ml @ 100 mls/hr 1X ONCE IV 03/12/21 09:30 03/12/21 19:29 03/12/21 09:36 Justifications for Admission Other Justification ASHLEY ALMAGUER MD Mar 12, 2021 14:09
[2021-03-12 15:00] VITALS: BP 125/57
[2021-03-12] MEDS: LIDOCAINE (700MG/PATCH) PATCH. TD SCH (15:27)
[2021-03-12] MEDS: REMDESIVIR 100mg in NORMAL SALINE 250ML X 4 DAYS IV SCH (15:29)
[2021-03-12] MEDS: cefTRIAXone IV Push 1 GM VIAL. IVP SCH (15:29)
[2021-03-12 19:00] VITALS: BP 134/67
[2021-03-12] MEDS: PATCH REMOVAL. MC SCH (21:00)
[2021-03-12] MEDS: DOXYCYCLINE HYCLATE 100 MG TABLET PO SCH (21:26)
[2021-03-12] MEDS: CYCLOBENZAPRINE 10 MG TABLET. PO PRN (21:27)
[2021-03-12 23:30] VITALS: BP 137/69
[2021-03-13 03:21] VITALS: BP 136/71
[2021-03-13 07:00] VITALS: BP 142/73
--- NOTE | 2021-03-13 08:16 | PDOC ---
Infectious Disease Note Subjective Subjective Patient is feeling okay not bad ROS ROS no n/v/d/ Vital Sign Vital Signs Vital Signs Date Time Temp Pulse Resp B/P (MAP) Pulse Ox O2 Delivery O2 Flow Rate FiO2 03/13/21 03:21 97.8 84 20 136/71 (92) 96 NonRebreather Mask 9.0 97.8 Physical Exam PHYSICAL EXAM GENERAL: Alert, oriented female, not in distress. VITAL SIGNS: Stable. HEENT: Both pupils are round and reacting. No conjunctival lesion, no lesion in the mouth. NECK: Supple, no JVP, no lymphadenopathy. LUNGS: Clear. HEART: S1, S2, regular. ABDOMEN: Soft, nontender, no organomegaly. EXTREMITIES: No edema, no cyanosis. SKIN: Unremarkable. NEUROLOGIC: The patient is alert, awake, and appropriate. No focal neurologic deficit. Labs Micro Microbiology 03/10/21 Blood Culture - Preliminary, Resulted NO GROWTH AFTER 1 DAY Objective Assessment IMPRESSION: 1. COVID-19 positive. 2. Pulmonary infiltrate. 3. Hypoxic respiratory failure. 4. Morbid obesity. 5. Diabetes. 6. Hypertension. 7. Bundle branch block. Plan Plan of Care Continue supportive care continue steroids remdesivir and baricitinib DEVON HART MD Mar 13, 2021 08:15
[2021-03-13] MEDS: BARICITINIB 2 MG PO SCH (08:39)
[2021-03-13] MEDS: methylPREDNISolone SOD SUCC PF 40 MG/ML VIAL. IV SCH ×2 (08:39→20:24)
[2021-03-13] MEDS: DOXYCYCLINE HYCLATE 100 MG TABLET PO SCH ×2 (08:41→20:23)
[2021-03-13] MEDS: ENOXAPARIN 40 MG/0.4 ML SYRINGE. SQ SCH ×2 (08:41→20:23)
[2021-03-13] MEDS: ASPIRIN CHEWABLE 81 MG TABLET. PO SCH (08:41)
[2021-03-13] MEDS: CYCLOBENZAPRINE 10 MG TABLET. PO PRN ×2 (08:41→20:23)
[2021-03-13] MEDS: LIDOCAINE (700MG/PATCH) PATCH. TD SCH (08:41)
[2021-03-13] MEDS: HYDROcodone/APAP 5/325MG 1 TAB TABLET PO PRN ×2 (08:42→20:24)
[2021-03-13] MEDS: MULTIVITAMIN with MINERAL TABLET. PO SCH (08:42)
[2021-03-13] MEDS: LACTOBACILLUS RHAMNOSUS GG 1 CAPSULE. PO SCH ×2 (08:42→20:23)
--- NOTE | 2021-03-13 10:27 | NUR ---
SW following. Discussed with RN, pt from home with , now requiring 10L oxygen, COVID-19 positive. Pt getting more anxious per RN. Pt not medically stable for discharge at this time. SW will continue to follow.
[2021-03-13 11:00] VITALS: BP 118/63
[2021-03-13] MEDS: IPRATROPIUM/ALBUTEROL 20/100mcg/INH INHALER. INH SCH ×3 (11:41→20:24)
--- NOTE | 2021-03-13 11:54 | PDOC ---
PULMONARY PROGRESS NOTES DATE: 03/13/21 TIME: 11:53 Subjective Patient denies any shortness of breath. Currently on 9 L nasal cannula. Vitals Vital Signs Date Time Temp Pulse Resp B/P (MAP) Pulse Ox O2 Delivery O2 Flow Rate FiO2 03/13/21 08:42 93 High Flow Nasal Cannula 9.0 03/13/21 07:00 97.7 87 18 142/73 (96) 97.7 General: Alert, No acute distress Lungs: Clear Cardiovascular: S1 Abdomen: Soft Neuro Exam: Alert Extremities: No Edema Labs Laboratory Tests Test 03/12/21 03:10 White Blood Count 12.1 x10^3/uL (4.0-11.0) Red Blood Count 4.40 x10^6/uL (3.50-5.40) Hemoglobin 12.2 g/dL (12.0-15.5) Hematocrit 37.0 % (36.0-47.0) Mean Corpuscular Volume 84 fL (79-100) Mean Corpuscular Hemoglobin 28 pg (25-35) Mean Corpuscular Hemoglobin Concent 33 g/dL (31-37) Red Cell Distribution Width 14.6 % (11.5-14.5) Platelet Count 322 x10^3/uL (140-400) Neutrophils (%) (Auto) 82 % (31-73) Lymphocytes (%) (Auto) 11 % (24-48) Monocytes (%) (Auto) 7 % (0-9) Eosinophils (%) (Auto) 0 % (0-3) Basophils (%) (Auto) 0 % (0-3) Neutrophils # (Auto) 9.9 x10^3/uL (1.8-7.7) Lymphocytes # (Auto) 1.4 x10^3/uL (1.0-4.8) Monocytes # (Auto) 0.9 x10^3/uL (0.0-1.1) Eosinophils # (Auto) 0.0 x10^3/uL (0.0-0.7) Basophils # (Auto) 0.0 x10^3/uL (0.0-0.2) Segmented Neutrophils % 82 % (35-66) Band Neutrophils % 5 % (0-9) Lymphocytes % 8 % (24-48) Monocytes % 5 % (0-10) Platelet Estimate Adequate (ADEQUATE) Polychromasia Slight Anisocytosis Slight Sodium Level 138 mmol/L (136-145) Potassium Level 4.1 mmol/L (3.5-5.1) Chloride Level 103 mmol/L (98-107) Carbon Dioxide Level 24 mmol/L (21-32) Anion Gap 11 (6-14) Blood Urea Nitrogen 21 mg/dL (7-20) Creatinine 1.0 mg/dL (0.6-1.0) Estimated GFR (Cockcroft-Gault) 69.1 BUN/Creatinine Ratio 21 (6-20) Glucose Level 168 mg/dL (70-99) Calcium Level 8.0 mg/dL (8.5-10.1) Total Bilirubin 0.4 mg/dL (0.2-1.0) Aspartate Amino Transf (AST/SGOT) 52 U/L (15-37) Alanine Aminotransferase (ALT/SGPT) 52 U/L (14-59) Alkaline Phosphatase 96 U/L (46-116) Total Protein 6.5 g/dL (6.4-8.2) Albumin 2.5 g/dL (3.4-5.0) Albumin/Globulin Ratio 0.6 (1.0-1.7) Medications Active Scripts Medications Dose Route/Sig Max Daily Dose Days Date Category Acetaminophen-Cod #3 Tablet (Acetaminophen/Codeine Phosphate) 1 Each Tablet 1 Tab PO PRN Q6HRS PRN 3 08/23/20 Rx Cyclobenzaprine Hcl 10 Mg Tablet 1 Tab PO TID PRN 5 08/23/20 Rx Amlodipine Besylate 10 Mg Tablet 10 Mg PO DAILY 07/09/20 Rx Quetiapine Fumarate 50 Mg Tablet 1 Tab PO QHS 30 07/07/20 Reported Bupropion Xl (Bupropion Hcl) 300 Mg Tab.er.24h 1 Tab PO QHS 30 07/07/20 Reported Paroxetine Hcl 20 Mg Tablet 1 Tab PO DAILY 30 07/07/20 Reported Meclizine Hcl 25 Mg Tablet 1 Tab PO TID 07/28/18 Rx Metoprolol Succinate ( Xl ) (Metoprolol Succinate) 25 Mg Tab.er.24h 25 Mg PO DAILY 30 03/03/18 Rx Topamax (Topiramate) 25 Mg Tablet 25 Mg PO BID 30 03/03/18 Rx Cetirizine Hcl 10 Mg Tablet 10 Mg PO DAILY 03/03/18 Rx Ativan (Lorazepam) 0.5 Mg Tablet 0.5 Mg PO TID 12/22/16 Rx Fluticasone Propionate Nasal [place] (Fluticasone Propionate) 16 Gm [place].susp 2 [place] NS DAILY 07/11/16 Reported Atorvastatin Calcium 20 Mg Tablet 1 Tab PO DAILY 07/11/16 Reported Impression . 1. Acute respiratory failure secondary to COVID-19 viral pneumonia. 2. COVID-19 [address] pneumonia[address] CT chest, compatible with a viral pneumonia. 4. Morbid obesity. 5. Hypertension. 6. Diabetes. 7. Mild history of asthma. Plan . 1. Continue current steroids. 2. Continue IV remdesivir. 3. Continue with current oxygen. Keep saturations 92% and above 4. DVT prophylaxis. GALINA AG MD Mar 13, 2021 11:54
--- NOTE | 2021-03-13 12:21 | PDOC ---
[employer] PROGRESS NOTE Date of Service DOS: DATE: 03/13/21 TIME: 12:19 Chief Complaint Chief Complaint shortness of air, respiratory failure, COVID-19 pneumonia, Arrhythmias, bronchitis, diabetes, hypertension, left bundle branch block, vertigo, hysterectomy, hernia repair, bladder repair. History of Present Illness History of Present Illness 03/13 Patient seen and examined Discussed with RN Chart reviewed Patient sitting in bed with oxygen mask on at 9L She affirms cough and chest congestion, but denies any new concerns. 03/12 Patient evaluated examined at bedside. Resting in bed. Requiring high flow nasal cannula's afternoon continue COVID treatment. 03/11 Patient evaluated examined at bedside. She was on nasal cannula resting in bed. Continue COVID treatments which she is agreeable to. Pulmonary and infectious disease following. Plan of care discussed with bedside RN. HISTORY OF PRESENT ILLNESS: The patient is a pleasant 55-year-old female who tested positive for COVID-19 five days prior to admission. She had been trying to do outpatient therapy, but her symptoms worsened. She became short of breath. She got a cough. Should be noted she also has a syncopal episode after a bowel movement. Patient admitted and given COVID protocol. Vitals/I&O Vitals/I&O: Vital Signs Date Time Temp Pulse Resp B/P (MAP) Pulse Ox O2 Delivery O2 Flow Rate FiO2 03/13/21 08:42 93 High Flow Nasal Cannula 9.0 03/13/21 07:00 97.7 87 18 142/73 (96) 97.7 Physical Exam Physical Exam: GENERAL: Alert, oriented female, not in distress. VITAL SIGNS: Stable. HEENT: Both pupils are round and reacting. No conjunctival lesion, no lesion in the mouth. NECK: Supple, no JVP, no lymphadenopathy. LUNGS: Clear. HEART: S1, S2, regular. ABDOMEN: Soft, nontender, no organomegaly. EXTREMITIES: No edema, no cyanosis. SKIN: Unremarkable. NEUROLOGIC: The patient is alert, awake, and appropriate. No focal neurologic deficit. General: Alert, Oriented X3, Cooperative Heart: Regular rate, Normal S1 Lungs: Clear Abdomen: Normal bowel sounds, Soft, No tenderness Extremities: No edema, Normal pulses Skin: No significant lesion Review of Systems Review of Systems: Denies nausea, vomiting, changes in vision, changes in bowel. Affirms cough and chest congestion. Assessment and Plan Assessmemt and Plan Problems Medical Problems: (1) Acute respiratory failure due to COVID-19 Status: Acute (2) History of left bundle branch block (LBBB) Status: Acute (3) Hypoxia Status: Acute ASSESSMENT COVID-19 pneumonia respiratory failure diabetes Obesity hypertension history of left bundle branch block history of Arrhythmias s/p hysterectomy s/p hernia repair s/p bladder repair PLAN COVID protocol Home meds DVT prophylaxis Full code. IV antibiotics IV remdesivir (initiated 03/11/21) beta agonist vitamins and minerals oxygen codeine cough syrup aspirin Lovenox Discharge disposition pending Comment Review of Relevant I have reviewed the following items iris (where applicable) has been applied. Medications: Current Medications Medications (Trade) Dose Ordered Sig/Dirk Route PRN Reason Start Time Stop Time Status Last Admin Dose Admin Doxycycline Hyclate (Vibra-Tab) 100 mg BID PO 03/12/21 21:00 03/13/21 08:41 Lidocaine (Lidoderm) 1 patch DAILY TD 03/12/21 13:30 03/13/21 08:41 Miscellaneous (Lidoderm Patch Removal) 1 ea QHS MC 03/12/21 21:00 03/12/21 21:00 Albuterol/ Ipratropium (Combivent Respimat 20-100 Mcg) 1 puff RTQID INH 03/13/21 12:00 03/13/21 11:41 Justifications for Admission Other Justification ABBEY PEREZ III DO Mar 13, 2021 12:21
[2021-03-13 15:00] VITALS: BP 133/79
[2021-03-13] MEDS: REMDESIVIR 100mg in NORMAL SALINE 250ML X 4 DAYS IV SCH (15:04)
[2021-03-13] MEDS: cefTRIAXone IV Push 1 GM VIAL. IVP SCH (15:05)
[2021-03-13] MEDS: guaiFENesin/CODEINE 100mg/10mg 5 ML LIQUID PO PRN (17:06)
[2021-03-13 19:00] VITALS: BP_SYST 121; BP_SYST 133; BP_DIAS 62; BP_DIAS 76
[2021-03-13] MEDS: PATCH REMOVAL. MC SCH (20:25)
[2021-03-13 23:00] VITALS: BP 134/79
[2021-03-14 02:50] VITALS: BP 144/73
[2021-03-14 07:00] VITALS: BP 146/80
--- NOTE | 2021-03-14 07:32 | PDOC ---
PULMONARY PROGRESS NOTES DATE: 03/14/21 TIME: 07:31 Subjective feels better Currently on 10 L nasal cannula. Vitals Vital Signs Date Time Temp Pulse Resp B/P (MAP) Pulse Ox O2 Delivery O2 Flow Rate FiO2 03/14/21 03:20 98.2 98.2 03/14/21 02:50 82 20 144/73 (96) 94 Nasal Cannula 10.0 General: Alert, No acute distress Lungs: Other (no accessory muscle use ) Cardiovascular: S1 Abdomen: Other (obese) Neuro Exam: Alert Extremities: No Edema Skin: No Rashes Medications Active Scripts Medications Dose Route/Sig Max Daily Dose Days Date Category Acetaminophen-Cod #3 Tablet (Acetaminophen/Codeine Phosphate) 1 Each Tablet 1 Tab PO PRN Q6HRS PRN 3 08/23/20 Rx Cyclobenzaprine Hcl 10 Mg Tablet 1 Tab PO TID PRN 5 08/23/20 Rx Amlodipine Besylate 10 Mg Tablet 10 Mg PO DAILY 07/09/20 Rx Quetiapine Fumarate 50 Mg Tablet 1 Tab PO QHS 30 07/07/20 Reported Bupropion Xl (Bupropion Hcl) 300 Mg Tab.er.24h 1 Tab PO QHS 30 07/07/20 Reported Paroxetine Hcl 20 Mg Tablet 1 Tab PO DAILY 30 07/07/20 Reported Meclizine Hcl 25 Mg Tablet 1 Tab PO TID 07/28/18 Rx Metoprolol Succinate ( Xl ) (Metoprolol Succinate) 25 Mg Tab.er.24h 25 Mg PO DAILY 30 03/03/18 Rx Topamax (Topiramate) 25 Mg Tablet 25 Mg PO BID 30 03/03/18 Rx Cetirizine Hcl 10 Mg Tablet 10 Mg PO DAILY 30 03/03/18 Rx Ativan (Lorazepam) 0.5 Mg Tablet 0.5 Mg PO TID 12/22/16 Rx Fluticasone Propionate Nasal [place] (Fluticasone Propionate) 16 Gm [place].susp 2 [place] NS DAILY 07/11/16 Reported Atorvastatin Calcium 20 Mg Tablet 1 Tab PO DAILY 07/11/16 Reported Impression . 1. Acute respiratory failure secondary to COVID-19 viral pneumonia. 2. COVID-[address] chest, compatible with a viral pneumonia. 4. Morbid obesity. 5. Hypertension. 6. Diabetes. 7. Mild history of asthma. Plan . 1. dexamethasone 2. Continue IV remdesivir. 3. o2 titration to Keep saturations 90% 4. DVT prophylaxis. CHAVA MAIER MD Mar 14, 2021 07:31
[2021-03-14] MEDS: LIDOCAINE (700MG/PATCH) PATCH. TD SCH (08:45)
[2021-03-14] MEDS: ENOXAPARIN 40 MG/0.4 ML SYRINGE. SQ SCH ×2 (08:46→21:35)
[2021-03-14] MEDS: methylPREDNISolone SOD SUCC PF 40 MG/ML VIAL. IV SCH ×2 (08:46→21:35)
[2021-03-14] MEDS: BARICITINIB 2 MG PO SCH (08:47)
[2021-03-14] MEDS: LACTOBACILLUS RHAMNOSUS GG 1 CAPSULE. PO SCH ×2 (08:48→21:35)
[2021-03-14] MEDS: MULTIVITAMIN with MINERAL TABLET. PO SCH (08:48)
[2021-03-14] MEDS: DOXYCYCLINE HYCLATE 100 MG TABLET PO SCH ×2 (08:48→21:35)
[2021-03-14] MEDS: ASPIRIN CHEWABLE 81 MG TABLET. PO SCH (08:48)
[2021-03-14] MEDS: HYDROcodone/APAP 5/325MG 1 TAB TABLET PO PRN (08:49)
[2021-03-14] MEDS: IPRATROPIUM/ALBUTEROL 20/100mcg/INH INHALER. INH SCH ×4 (08:53→21:36)
--- NOTE | 2021-03-14 09:47 | PDOC ---
Infectious Disease Note Subjective Subjective Patient is feeling okay not bad ROS ROS No nausea vomiting diarrhea or fever Vital Sign Vital Signs Vital Signs Date Time Temp Pulse Resp B/P (MAP) Pulse Ox O2 Delivery O2 Flow Rate FiO2 03/14/21 08:49 19 10.0 03/14/21 07:00 98.2 90 146/80 (102) 92 Nasal Cannula 98.2 Physical Exam PHYSICAL EXAM GENERAL: Alert, oriented female, not in distress. VITAL SIGNS: Stable. HEENT: Both pupils are round and reacting. No conjunctival lesion, no lesion in the mouth. NECK: Supple, no JVP, no lymphadenopathy. LUNGS: Clear. HEART: S1, S2, regular. ABDOMEN: Soft, nontender, no organomegaly. EXTREMITIES: No edema, no cyanosis. SKIN: Unremarkable. NEUROLOGIC: The patient is alert, awake, and appropriate. No focal neurologic deficit. Labs Micro Microbiology 03/10/21 Blood Culture - Preliminary, Resulted NO GROWTH AFTER 1 DAY Objective Assessment IMPRESSION: 1. COVID-19 positive. 2. Pulmonary infiltrate. 3. Hypoxic respiratory failure. 4. Morbid obesity. 5. Diabetes. 6. Hypertension. 7. Bundle branch block. Plan Plan of Care Continue supportive care continue steroids remdesivir and baricitinib DEVON HART MD Mar 14, 2021 09:47
[2021-03-14 10:58] VITALS: BP 147/68
[2021-03-14 11:22] LABS: ALBUMIN 2.4 g/dL (3.4-5.0); ALBUMIN/GLOBULIN RATIO 0.7 (1.0-1.7); CALCIUM 7.7 mg/dL (8.5-10.1); CREATININE 0.9 mg/dL (0.6-1.0); GFR 78.1; POTASSIUM 4.4 mmol/L (3.5-5.1); TOTAL BILIRUBIN 0.4 mg/dL (0.2-1.0); TOTAL PROTEIN 5.7 g/dL (6.4-8.2)
--- NOTE | 2021-03-14 11:47 | PDOC ---
[facility] PROGRESS NOTE Date of Service DOS: DATE: 03/14/21 TIME: 11:45 Chief Complaint Chief Complaint shortness of air, respiratory failure, COVID-19 pneumonia, Arrhythmias, bronchitis, diabetes, hypertension, left bundle branch block, vertigo, hysterectomy, hernia repair, bladder repair. History of Present Illness History of Present Illness 03/14 Patient seen and examined Discussed with RN Patient affirms shortness of Breath Patient sitting in bed Patient concerned about her daughter who she says was recently hospitalized with COVID 03/13 Patient seen and examined Discussed with RN Chart reviewed Patient sitting in bed with oxygen mask on at 9L She affirms cough and chest congestion, but denies any new concerns. 03/12 Patient evaluated examined at bedside. Resting in bed. Requiring high flow nasal cannula's afternoon continue COVID treatment. 03/11 Patient evaluated examined at bedside. She was on nasal cannula resting in bed. Continue COVID treatments which she is agreeable to. Pulmonary and infectious disease following. Plan of care discussed with bedside RN. HISTORY OF PRESENT ILLNESS: The patient is a pleasant 55-year-old female who tested positive for COVID-19 five days prior to admission. She had been trying to do outpatient therapy, but her symptoms worsened. She became short of breath. She got a cough. Should be noted she also has a syncopal episode after a bowel movement. Patient admitted and given COVID protocol. Vitals/I&O Vitals/I&O: Vital Signs Date Time Temp Pulse Resp B/P (MAP) Pulse Ox O2 Delivery O2 Flow Rate FiO2 03/14/21 10:58 98.5 88 20 147/68 (94) 95 Nasal Cannula 10.0 98.5 Physical Exam Physical Exam: GENERAL: Alert, oriented female, not in distress. VITAL SIGNS: Stable. HEENT: Both pupils are round and reacting. No conjunctival lesion, no lesion in the mouth. NECK: Supple, no JVP, no lymphadenopathy. LUNGS: Clear. HEART: S1, S2, regular. ABDOMEN: Soft, nontender, no organomegaly. EXTREMITIES: No edema, no cyanosis. SKIN: Unremarkable. NEUROLOGIC: The patient is alert, awake, and appropriate. No focal neurologic deficit. General: Alert, Oriented X3, Cooperative Heart: Regular rate, Normal S1 Lungs: Clear Abdomen: Normal bowel sounds, Soft, No tenderness Extremities: No edema, Normal pulses Skin: No significant lesion Labs Labs: Laboratory Tests Test 03/14/21 10:30 Sodium Level 138 mmol/L (136-145) Potassium Level 4.4 mmol/L (3.5-5.1) Chloride Level 104 mmol/L (98-107) Carbon Dioxide Level 25 mmol/L (21-32) Anion Gap 9 (6-14) Blood Urea Nitrogen 22 mg/dL (7-20) Creatinine 0.9 mg/dL (0.6-1.0) Estimated GFR (Cockcroft-Gault) 78.1 BUN/Creatinine Ratio 24 (6-20) Glucose Level 147 mg/dL (70-99) Calcium Level 7.7 mg/dL (8.5-10.1) Total Bilirubin 0.4 mg/dL (0.2-1.0) Aspartate Amino Transf (AST/SGOT) 28 U/L (15-37) Alanine Aminotransferase (ALT/SGPT) 45 U/L (14-59) Alkaline Phosphatase 79 U/L (46-116) Total Protein 5.7 g/dL (6.4-8.2) Albumin 2.4 g/dL (3.4-5.0) Albumin/Globulin Ratio 0.7 (1.0-1.7) Review of Systems Review of Systems: Patient denied worsening of shortness of breath, changes in vision, changes in bowel or bladder patterns, and abdominal pain. Patient affirmed shortness of breath and chest congestion. Assessment and Plan Assessmemt and Plan Problems Medical Problems: (1) Acute respiratory failure due to COVID-19 Status: Acute (2) History of left bundle branch block (LBBB) Status: Acute (3) Hypoxia Status: Acute ASSESSMENT COVID-19 pneumonia respiratory failure diabetes Obesity hypertension history of left bundle branch block history of Arrhythmias s/p hysterectomy s/p hernia repair s/p bladder repair PLAN COVID protocol Home meds DVT prophylaxis Full code IV antibiotics IV remdesivir (initiated 03/11/21) beta agonist vitamins and minerals oxygen codeine cough syrup aspirin Lovenox Discharge disposition pending Comment Review of Relevant I have reviewed the following items iris (where applicable) has been applied. Medications: Current Medications Medications (Trade) Dose Ordered Sig/Dirk Route PRN Reason Start Time Stop Time Status Last Admin Dose Admin Albuterol/ Ipratropium (Combivent Respimat 20-100 Mcg) 1 puff RTQID INH 1/14/22 12:00 03/14/21 08:53 Justifications for Admission Other Justification ABBEY PEREZ III DO Mar 14, 2021 11:47
[2021-03-14] MEDS: REMDESIVIR 100mg in NORMAL SALINE 250ML X 4 DAYS IV SCH (14:46)
[2021-03-14] MEDS: cefTRIAXone IV Push 1 GM VIAL. IVP SCH (14:47)
[2021-03-14 14:52] VITALS: BP 134/67
[2021-03-14 19:26] VITALS: BP 191/86
[2021-03-14] MEDS: PATCH REMOVAL. MC SCH (21:00)
[2021-03-14 22:39] VITALS: BP 159/72
[2021-03-15] VITALS (7 sets, daily range): BP systolic 137–193; BP diastolic 67–94
[2021-03-15 06:35] LABS: BASO % 0 % (0-3); EOS % 0 % (0-3); HEMATOCRIT 36.6 % (36.0-47.0); HEMOGLOBIN 12.3 g/dL (12.0-15.5); LYMPH # 1.5 x10^3/uL (1.0-4.8); LYMPH % 13 % (24-48); MEAN CORPUSCULAR HEMOGLOBIN 28 pg (25-35); MEAN CORPUSCULAR HGB CONC 34 g/dL (31-37); MEAN CORPUSCULAR VOLUME 84 fL (79-100); MONO # 0.7 x10^3/uL (0.0-1.1); MONO % 6 % (0-9); NEUT # 9.7 x10^3/uL (1.8-7.7); NEUT % 82 % (31-73); PLATELET COUNT 403 x10^3/uL (140-400); RED BLOOD COUNT 4.35 x10^6/uL (3.50-5.40); RED CELL DISTRIBUTION WIDTH 14.4 % (11.5-14.5); WHITE BLOOD COUNT 11.9 x10^3/uL (4.0-11.0)
[2021-03-15] MEDS: LIDOCAINE (700MG/PATCH) PATCH. TD SCH (09:29)
[2021-03-15] MEDS: ENOXAPARIN 40 MG/0.4 ML SYRINGE. SQ SCH ×2 (09:29→20:23)
[2021-03-15] MEDS: methylPREDNISolone SOD SUCC PF 40 MG/ML VIAL. IV SCH ×2 (09:30→20:24)
[2021-03-15] MEDS: MULTIVITAMIN with MINERAL TABLET. PO SCH (09:30)
[2021-03-15] MEDS: ASPIRIN CHEWABLE 81 MG TABLET. PO SCH (09:30)
[2021-03-15] MEDS: BARICITINIB 2 MG PO SCH (09:30)
[2021-03-15] MEDS: LACTOBACILLUS RHAMNOSUS GG 1 CAPSULE. PO SCH ×2 (09:30→20:24)
[2021-03-15] MEDS: HYDROcodone/APAP 5/325MG 1 TAB TABLET PO PRN ×2 (09:31→20:24)
[2021-03-15] MEDS: IPRATROPIUM/ALBUTEROL 20/100mcg/INH INHALER. INH SCH ×4 (09:32→20:00)
[2021-03-15] MEDS: DOXYCYCLINE HYCLATE 100 MG TABLET PO SCH ×2 (09:32→20:24)
--- NOTE | 2021-03-15 12:30 | PDOC ---
[facility] [facility] PROGRESS NOTE Date of Service DOS: DATE: 03/15/21 TIME: 12:26 Chief Complaint Chief Complaint shortness of air, respiratory failure, COVID-19 pneumonia, Arrhythmias, bronchitis, diabetes, hypertension, left bundle branch block, vertigo, hysterectomy, hernia repair, bladder repair. History of Present Illness History of Present Illness 03/15 Patient seen and examined Discussed with RN Chart reviewed Patient sitting in bed Affirms shortness of breath Blood pressure at 03:07 today was elevated 193/94 03/14 Patient seen and examined Discussed with RN Patient affirms shortness of Breath Patient sitting in bed Patient concerned about her daughter who she says was recently hospitalized with COVID 03/13 Patient seen and examined Discussed with RN Chart reviewed Patient sitting in bed with oxygen mask on at 9L She affirms cough and chest congestion, but denies any new concerns. 03/12 Patient evaluated examined at bedside. Resting in bed. Requiring high flow nasal cannula's afternoon continue COVID treatment. 03/11 Patient evaluated examined at bedside. She was on nasal cannula resting in bed. Continue COVID treatments which she is agreeable to. Pulmonary and infectious disease following. Plan of care discussed with bedside RN. HISTORY OF PRESENT ILLNESS: The patient is a pleasant 55-year-old female who tested positive for COVID-19 five days prior to admission. She had been trying to do outpatient therapy, but her symptoms worsened. She became short of breath. She got a cough. Should be noted she also has a syncopal episode after a bowel movement. Patient admitted and given COVID protocol. Vitals/I&O Vitals/I&O: Vital Signs Date Time Temp Pulse Resp B/P (MAP) Pulse Ox O2 Delivery O2 Flow Rate FiO2 03/15/21 10:59 98.4 82 16 176/79 (111) 90 NonRebreather Mask 9.0 98.4 Physical Exam Physical Exam: GENERAL: Alert, oriented female, not in distress. VITAL SIGNS: Stable. HEENT: Both pupils are round and reacting. No conjunctival lesion, no lesion in the mouth. NECK: Supple, no JVP, no lymphadenopathy. LUNGS: Clear. HEART: S1, S2, regular. ABDOMEN: Soft, nontender, no organomegaly. EXTREMITIES: No edema, no cyanosis. SKIN: Unremarkable. NEUROLOGIC: The patient is alert, awake, and appropriate. No focal neurologic deficit. General: Alert, Oriented X3, Cooperative Heart: Regular rate, Normal S1 Lungs: Other (no accessory muscle use ) Abdomen: Normal bowel sounds, Soft, No tenderness Extremities: No edema, Normal pulses Skin: No significant lesion Labs Labs: Laboratory Tests Test 03/15/21 04:20 White Blood Count 11.9 x10^3/uL (4.0-11.0) Red Blood Count 4.35 x10^6/uL (3.50-5.40) Hemoglobin 12.3 g/dL (12.0-15.5) Hematocrit 36.6 % (36.0-47.0) Mean Corpuscular Volume 84 fL (79-100) Mean Corpuscular Hemoglobin 28 pg (25-35) Mean Corpuscular Hemoglobin Concent 34 g/dL (31-37) Red Cell Distribution Width 14.4 % (11.5-14.5) Platelet Count 403 x10^3/uL (140-400) Neutrophils (%) (Auto) 82 % (31-73) Lymphocytes (%) (Auto) 13 % (24-48) Monocytes (%) (Auto) 6 % (0-9) Eosinophils (%) (Auto) 0 % (0-3) Basophils (%) (Auto) 0 % (0-3) Neutrophils # (Auto) 9.7 x10^3/uL (1.8-7.7) Lymphocytes # (Auto) 1.5 x10^3/uL (1.0-4.8) Monocytes # (Auto) 0.7 x10^3/uL (0.0-1.1) Eosinophils # (Auto) 0.0 x10^3/uL (0.0-0.7) Basophils # (Auto) 0.0 x10^3/uL (0.0-0.2) Review of Systems Review of Systems: Denied abdominal pain, nausea, vomiting, and changes in bowel or bladder patterns. Affirmed shortness of breath and chest congestion. Assessment and Plan Assessmemt and Plan Problems Medical Problems: (1) Acute respiratory failure due to COVID-19 Status: Acute (2) History of left bundle branch block (LBBB) Status: Acute (3) Hypoxia Status: Acute ASSESSMENT COVID-19 pneumonia respiratory failure diabetes Obesity hypertension history of left bundle branch block history of Arrhythmias s/p hysterectomy s/p hernia repair s/p bladder repair PLAN COVID protocol Norvasc 5 mg daily for hypertension Home meds DVT prophylaxis Full code IV antibiotics IV remdesivir (initiated 03/11/21) beta agonist vitamins and minerals oxygen codeine cough syrup aspirin Lovenox Discharge disposition pending Comment Review of Relevant I have reviewed the following items iris (where applicable) has been applied. Justifications for Admission Other Justification ABBEY PEREZ III DO Mar 15, 2021 12:30
[2021-03-15] MEDS: cefTRIAXone IV Push 1 GM VIAL. IVP SCH (14:56)
[2021-03-15] MEDS: PATCH REMOVAL. MC SCH (20:25)
[2021-03-16 03:14] VITALS: BP 140/67
[2021-03-16 07:00] VITALS: BP 124/74
[2021-03-16] MEDS: ASPIRIN CHEWABLE 81 MG TABLET. PO SCH (08:52)
[2021-03-16] MEDS: MULTIVITAMIN with MINERAL TABLET. PO SCH (08:52)
[2021-03-16] MEDS: BARICITINIB 2 MG PO SCH (08:52)
[2021-03-16] MEDS: LACTOBACILLUS RHAMNOSUS GG 1 CAPSULE. PO SCH ×2 (08:52→21:18)
[2021-03-16] MEDS: methylPREDNISolone SOD SUCC PF 40 MG/ML VIAL. IV SCH ×2 (08:58→21:18)
[2021-03-16] MEDS: IPRATROPIUM/ALBUTEROL 20/100mcg/INH INHALER. INH SCH ×4 (08:58→21:26)
[2021-03-16] MEDS: LIDOCAINE (700MG/PATCH) PATCH. TD SCH (08:59)
[2021-03-16] MEDS: ENOXAPARIN 40 MG/0.4 ML SYRINGE. SQ SCH ×2 (08:59→21:25)
--- NOTE | 2021-03-16 09:38 | PDOC ---
PULMONARY PROGRESS NOTES DATE: 03/16/21 TIME: 09:35 Subjective feels better eating well Currently on 9L nasal cannula. Vitals Vital Signs Date Time Temp Pulse Resp B/P (MAP) Pulse Ox O2 Delivery O2 Flow Rate FiO2 03/16/21 08:53 92 124/74 03/16/21 08:30 Nasal Cannula 9.0 03/16/21 07:00 98.1 18 93 98.1 Comments Visual exam done, no paradoxical breathing, sitting comfortably in bed on 9L NC. General: Alert, No acute distress Neuro Exam: Alert Extremities: No Edema Skin: No Rashes Labs Laboratory Tests Test 03/14/21 10:30 03/15/21 04:20 Sodium Level 138 mmol/L (136-145) Potassium Level 4.4 mmol/L (3.5-5.1) Chloride Level 104 mmol/L (98-107) Carbon Dioxide Level 25 mmol/L (21-32) Anion Gap 9 (6-14) Blood Urea Nitrogen 22 mg/dL (7-20) Creatinine 0.9 mg/dL (0.6-1.0) Estimated GFR (Cockcroft-Gault) 78.1 BUN/Creatinine Ratio 24 (6-20) Glucose Level 147 mg/dL (70-99) Calcium Level 7.7 mg/dL (8.5-10.1) Total Bilirubin 0.4 mg/dL (0.2-1.0) Aspartate Amino Transf (AST/SGOT) 28 U/L (15-37) Alanine Aminotransferase (ALT/SGPT) 45 U/L (14-59) Alkaline Phosphatase 79 U/L (46-116) Total Protein 5.7 g/dL (6.4-8.2) Albumin 2.4 g/dL (3.4-5.0) Albumin/Globulin Ratio 0.7 (1.0-1.7) White Blood Count 11.9 x10^3/uL (4.0-11.0) Red Blood Count 4.35 x10^6/uL (3.50-5.40) Hemoglobin 12.3 g/dL (12.0-15.5) Hematocrit 36.6 % (36.0-47.0) Mean Corpuscular Volume 84 fL (79-100) Mean Corpuscular Hemoglobin 28 pg (25-35) Mean Corpuscular Hemoglobin Concent 34 g/dL (31-37) Red Cell Distribution Width 14.4 % (11.5-14.5) Platelet Count 403 x10^3/uL (140-400) Neutrophils (%) (Auto) 82 % (31-73) Lymphocytes (%) (Auto) 13 % (24-48) Monocytes (%) (Auto) 6 % (0-9) Eosinophils (%) (Auto) 0 % (0-3) Basophils (%) (Auto) 0 % (0-3) Neutrophils # (Auto) 9.7 x10^3/uL (1.8-7.7) Lymphocytes # (Auto) 1.5 x10^3/uL (1.0-4.8) Monocytes # (Auto) 0.7 x10^3/uL (0.0-1.1) Eosinophils # (Auto) 0.0 x10^3/uL (0.0-0.7) Basophils # (Auto) 0.0 x10^3/uL (0.0-0.2) Medications Active Scripts Medications Dose Route/Sig Max Daily Dose Days Date Category Acetaminophen-Cod #3 Tablet (Acetaminophen/Codeine Phosphate) 1 Each Tablet 1 Tab PO PRN Q6HRS PRN 3 08/23/20 Rx Cyclobenzaprine Hcl 10 Mg Tablet 1 Tab PO TID PRN 5 08/23/20 Rx Amlodipine Besylate 10 Mg Tablet 10 Mg PO DAILY 07/09/20 Rx Quetiapine Fumarate 50 Mg Tablet 1 Tab PO QHS 30 07/07/20 Reported Bupropion Xl (Bupropion Hcl) 300 Mg Tab.er.24h 1 Tab PO QHS 30 07/07/20 Reported Paroxetine Hcl 20 Mg Tablet 1 Tab PO DAILY 30 07/07/20 Reported Meclizine Hcl 25 Mg Tablet 1 Tab PO TID 07/28/18 Rx Metoprolol Succinate ( Xl ) (Metoprolol Succinate) 25 Mg Tab.er.24h 25 Mg PO DAILY 30 03/03/18 Rx Topamax (Topiramate) 25 Mg Tablet 25 Mg PO BID 30 03/03/18 Rx Cetirizine Hcl 10 Mg Tablet 10 Mg PO DAILY 30 03/03/18 Rx Ativan (Lorazepam) 0.5 Mg Tablet 0.5 Mg PO TID 12/22/16 Rx Fluticasone Propionate Nasal [place] (Fluticasone Propionate) 16 Gm [place].susp 2 [place] NS DAILY 07/11/16 Reported Atorvastatin Calcium 20 Mg Tablet 1 Tab PO DAILY 07/11/16 Reported Impression . 1. Acute respiratory failure secondary to COVID-19 viral pneumonia. 2. COVID-[address] CT chest, compatible with a viral pneumonia. 4. Morbid obesity. 5. Hypertension. 6. Diabetes. 7. Mild history of asthma. Plan . 1. dexamethasone 2. Continue IV remdesivir. 3. o2 titration to Keep saturations 90% 4. DVT prophylaxis. GALINA AG MD Mar 16, 2021 09:38
[2021-03-16 10:16] LABS: ALBUMIN 2.6 g/dL (3.4-5.0); ALBUMIN/GLOBULIN RATIO 0.8 (1.0-1.7); CALCIUM 8.3 mg/dL (8.5-10.1); CREATININE 0.9 mg/dL (0.6-1.0); GFR 78.1; TOTAL BILIRUBIN 0.4 mg/dL (0.2-1.0)
--- NOTE | 2021-03-16 10:20 | NUR ---
SW following. Discussed with RN, pt from home with , 9L, IV abx, COVID-19 positive. Pt not medically stable for discharge. SW will continue to follow.
[2021-03-16] MEDS: DOXYCYCLINE HYCLATE 100 MG TABLET PO SCH ×2 (10:34→21:18)
--- NOTE | 2021-03-16 10:58 | PDOC ---
[employer] [facility] PROGRESS NOTE Date of Service DOS: DATE: 03/16/21 TIME: 10:55 Chief Complaint Chief Complaint shortness of air, respiratory failure, COVID-19 pneumonia, Arrhythmias, bronchitis, diabetes, hypertension, left bundle branch block, vertigo, hysterectomy, hernia repair, bladder repair. History of Present Illness History of Present Illness 03/16 Patient seen and examined at beside. She is doing well and hopeful for discharge soon. Patient is on a nasal cannula at 10L Discussed with RN Chart reviewed 03/15 Patient seen and examined Discussed with RN Chart reviewed Patient sitting in bed Affirms shortness of breath Blood pressure at 03:07 today was elevated 193/94 03/14 Patient seen and examined Discussed with RN Patient affirms shortness of Breath Patient sitting in bed Patient concerned about her daughter who she says was recently hospitalized with COVID 03/13 Patient seen and examined Discussed with RN Chart reviewed Patient sitting in bed with oxygen mask on at 9L She affirms cough and chest congestion, but denies any new concerns. 03/12 Patient evaluated examined at bedside. Resting in bed. Requiring high flow nasal cannula's afternoon continue COVID treatment. 03/11 Patient evaluated examined at bedside. She was on nasal cannula resting in bed. Continue COVID treatments which she is agreeable to. Pulmonary and infectious disease following. Plan of care discussed with bedside RN. HISTORY OF PRESENT ILLNESS: The patient is a pleasant 55-year-old female who tested positive for COVID-19 five days prior to admission. She had been trying to do outpatient therapy, but her symptoms worsened. She became short of breath. She got a cough. Should be noted she also has a syncopal episode after a bowel movement. Patient admitted and given COVID protocol. Vitals/I&O Vitals/I&O: Vital Signs Date Time Temp Pulse Resp B/P (MAP) Pulse Ox O2 Delivery O2 Flow Rate FiO2 03/16/21 08:53 92 124/74 03/16/21 08:30 Nasal Cannula 9.0 03/16/21 07:00 98.1 18 93 98.1 Physical Exam Physical Exam: GENERAL: Alert, oriented female, not in distress. VITAL SIGNS: Stable. HEENT: Both pupils are round and reacting. No conjunctival lesion, no lesion in the mouth. NECK: Supple, no JVP, no lymphadenopathy. LUNGS: Clear. HEART: S1, S2, regular. ABDOMEN: Soft, nontender, no organomegaly. EXTREMITIES: No edema, no cyanosis. SKIN: Unremarkable. NEUROLOGIC: The patient is alert, awake, and appropriate. No focal neurologic deficit. General: Alert, Oriented X3, Cooperative Heart: Regular rate, Normal S1 Abdomen: Normal bowel sounds, Soft, No tenderness Extremities: No edema, Normal pulses Skin: No significant lesion Labs Labs: Laboratory Tests Test 03/16/21 06:10 Carbon Dioxide Level 23 mmol/L (21-32) Blood Urea Nitrogen 19 mg/dL (7-20) Creatinine 0.9 mg/dL (0.6-1.0) Estimated GFR (Cockcroft-Gault) 78.1 BUN/Creatinine Ratio 21 (6-20) Glucose Level 167 mg/dL (70-99) Calcium Level 8.3 mg/dL (8.5-10.1) Total Bilirubin 0.4 mg/dL (0.2-1.0) Aspartate Amino Transf (AST/SGOT) 27 U/L (15-37) Alanine Aminotransferase (ALT/SGPT) 50 U/L (14-59) Alkaline Phosphatase 82 U/L (46-116) Total Protein 6.0 g/dL (6.4-8.2) Albumin 2.6 g/dL (3.4-5.0) Albumin/Globulin Ratio 0.8 (1.0-1.7) Assessment and Plan Assessmemt and Plan shortness of air, respiratory failure, COVID-19 pneumonia, Arrhythmias, bronchitis, diabetes, hypertension, left bundle branch block, vertigo, hysterectomy, hernia repair, bladder repair. Plan: Continue covid protocol Home meds DVT prophylaxis Full code Encourage po intake Comment Review of Relevant I have reviewed the following items iris (where applicable) has been applied. Medications: Current Medications Medications (Trade) Dose Ordered Sig/Dirk Route PRN Reason Start Time Stop Time Status Last Admin Dose Admin Amlodipine Besylate (Norvasc) 5 mg DAILY PO 03/15/21 13:00 03/16/21 08:53 Justifications for Admission Other Justification ABBEY PEREZ III DO Mar 16, 2021 10:58
[2021-03-16 11:00] VITALS: BP 136/70
[2021-03-16 11:00] LABS: POTASSIUM 4.9 mmol/L (3.5-5.1)
--- NOTE | 2021-03-16 11:40 | PDOC ---
Infectious Disease Note Subjective: Subjective Patient is feeling okay on nasal o2 Vital Signs: Vital Signs Vital Signs Date Time Temp Pulse Resp B/P (MAP) Pulse Ox O2 Delivery O2 Flow Rate FiO2 03/16/21 08:53 92 124/74 03/16/21 08:30 Nasal Cannula 9.0 03/16/21 07:00 98.1 18 93 98.1 Physical Exam: PHYSICAL EXAM GENERAL: Alert, oriented female, not in distress. VITAL SIGNS: Stable. HEENT: Both pupils are round and reacting. No conjunctival lesion, no lesion in the mouth. NECK: Supple, no JVP, no lymphadenopathy. LUNGS: Clear. HEART: S1, S2, regular. ABDOMEN: Soft, nontender, no organomegaly. EXTREMITIES: No edema, no cyanosis. SKIN: Unremarkable. NEUROLOGIC: The patient is alert, awake, and appropriate. No focal neurologic deficit. Medications: Inpatient Meds: Medications reviewed. Labs: Lab Laboratory Tests Test 03/16/21 06:10 Sodium Level 138 mmol/L (136-145) Potassium Level 4.9 mmol/L (3.5-5.1) Chloride Level 103 mmol/L (98-107) Carbon Dioxide Level 23 mmol/L (21-32) Anion Gap 12 (6-14) Blood Urea Nitrogen 19 mg/dL (7-20) Creatinine 0.9 mg/dL (0.6-1.0) Estimated GFR (Cockcroft-Gault) 78.1 BUN/Creatinine Ratio 21 (6-20) Glucose Level 167 mg/dL (70-99) Calcium Level 8.3 mg/dL (8.5-10.1) Total Bilirubin 0.4 mg/dL (0.2-1.0) Aspartate Amino Transf (AST/SGOT) 27 U/L (15-37) Alanine Aminotransferase (ALT/SGPT) 50 U/L (14-59) Alkaline Phosphatase 82 U/L (46-116) Total Protein 6.0 g/dL (6.4-8.2) Albumin 2.6 g/dL (3.4-5.0) Albumin/Globulin Ratio 0.8 (1.0-1.7) Objective: Assessment: IMPRESSION: 1. COVID-19 positive. 2. Pulmonary infiltrate. 3. Hypoxic respiratory failure. 4. Morbid obesity. 5. Diabetes. 6. Hypertension. 7. Bundle branch block. Plan: Plan of Care Continue supportive care cont ceftriaxone and doxycycline continue steroids remdesivir and baricitinib AILYN HART MD Mar 16, 2021 11:40
[2021-03-16 15:00] VITALS: BP 123/68
[2021-03-16] MEDS: cefTRIAXone IV Push 1 GM VIAL. IVP SCH (15:10)
[2021-03-16] MEDS ORDERED: CALCIUM CARBONATE 500 MG TAB.CHEW PO PRN (16:00)
[2021-03-16] MEDS: CALCIUM CARBONATE 500 MG TAB.CHEW PO PRN (17:53)
[2021-03-16] MEDS: FAMOTIDINE 20 MG TABLET. PO SCH ×2 (17:53→21:18)
[2021-03-16] MEDS ORDERED: LIDO:MAALOX 1:1 20 ML SINGLE DOSE. PO PRN (18:00)
[2021-03-16 19:00] VITALS: BP 118/77
[2021-03-16] MEDS: PATCH REMOVAL. MC SCH (21:00)
[2021-03-16 23:00] VITALS: BP 137/69
[2021-03-17 03:16] VITALS: BP 146/83
[2021-03-17 07:00] VITALS: BP 120/70
[2021-03-17] MEDS: IPRATROPIUM/ALBUTEROL 20/100mcg/INH INHALER. INH SCH ×4 (08:30→20:00)
[2021-03-17] MEDS: ASPIRIN CHEWABLE 81 MG TABLET. PO SCH (08:31)
[2021-03-17] MEDS: BARICITINIB 2 MG PO SCH (08:31)
[2021-03-17] MEDS: MULTIVITAMIN with MINERAL TABLET. PO SCH (08:32)
[2021-03-17] MEDS: DOXYCYCLINE HYCLATE 100 MG TABLET PO SCH ×2 (08:32→20:41)
[2021-03-17] MEDS: LACTOBACILLUS RHAMNOSUS GG 1 CAPSULE. PO SCH ×2 (08:32→20:41)
[2021-03-17] MEDS: FAMOTIDINE 20 MG TABLET. PO SCH ×2 (08:32→20:41)
[2021-03-17] MEDS: methylPREDNISolone SOD SUCC PF 40 MG/ML VIAL. IV SCH ×2 (08:33→20:41)
[2021-03-17] MEDS: ENOXAPARIN 40 MG/0.4 ML SYRINGE. SQ SCH ×2 (08:33→20:40)
[2021-03-17] MEDS: LIDOCAINE (700MG/PATCH) PATCH. TD SCH (08:34)
[2021-03-17] MEDS: CALCIUM CARBONATE 500 MG TAB.CHEW PO PRN (08:50)
--- NOTE | 2021-03-17 09:23 | PDOC ---
Infectious Disease Note Subjective: Subjective Patient is feeling better Remains on nasal o2 Vital Signs: Vital Signs Vital Signs Date Time Temp Pulse Resp B/P (MAP) Pulse Ox O2 Delivery O2 Flow Rate FiO2 03/17/21 08:31 77 146/83 03/17/21 07:00 98.3 18 94 Nasal Cannula 9.0 98.3 Physical Exam: PHYSICAL EXAM GENERAL: Alert, oriented female, not in distress. VITAL SIGNS: Stable. HEENT: Both pupils are round and reacting. No conjunctival lesion, no lesion in the mouth. NECK: Supple, no JVP, no lymphadenopathy. LUNGS: Clear. HEART: S1, S2, regular. ABDOMEN: Soft, nontender, no organomegaly. EXTREMITIES: No edema, no cyanosis. SKIN: Unremarkable. NEUROLOGIC: The patient is alert, awake, and appropriate. No focal neurologic deficit. Medications: Inpatient Meds: Medications reviewed. Objective: Assessment: IMPRESSION: 1. COVID-19 positive. 2. Pulmonary infiltrate. 3. Hypoxic respiratory failure. 4. Morbid obesity. 5. Diabetes. 6. Hypertension. 7. Bundle branch block. Plan: Plan of Care Continue supportive care continue steroids remdesivir and baricitinib Continue antibiotics AILYN HART MD Mar 17, 2021 09:23
--- NOTE | 2021-03-17 10:22 | PDOC ---
[employer] PROGRESS NOTE Date of Service DOS: DATE: 03/17/21 TIME: 10:21 Chief Complaint Chief Complaint shortness of air, respiratory failure, COVID-19 pneumonia, Arrhythmias, bronchitis, diabetes, hypertension, left bundle branch block, vertigo, hysterectomy, hernia repair, bladder repair. History of Present Illness History of Present Illness 03/17 Seen and examined at bedside. Resting in bed, still on pretty high O2 settings. Continue current treatment weaning O2 as tolerated. If good progress may be able to d/c by end of week 03/16 Patient seen and examined at beside. She is doing well and hopeful for discharge soon. Patient is on a nasal cannula at 10L Discussed with RN Chart reviewed 03/15 Patient seen and examined Discussed with RN Chart reviewed Patient sitting in bed Affirms shortness of breath Blood pressure at 03:07 today was elevated 193/94 03/14 Patient seen and examined Discussed with RN Patient affirms shortness of Breath Patient sitting in bed Patient concerned about her daughter who she says was recently hospitalized with COVID 03/13 Patient seen and examined Discussed with RN Chart reviewed Patient sitting in bed with oxygen mask on at 9L She affirms cough and chest congestion, but denies any new concerns. 03/12 Patient evaluated examined at bedside. Resting in bed. Requiring high flow nasal cannula's afternoon continue COVID treatment. 03/11 Patient evaluated examined at bedside. She was on nasal cannula resting in bed. Continue COVID treatments which she is agreeable to. Pulmonary and infectious disease following. Plan of care discussed with bedside RN. HISTORY OF PRESENT ILLNESS: The patient is a pleasant 55-year-old female who tested positive for COVID-19 five days prior to admission. She had been trying to do outpatient therapy, but her symptoms worsened. She became short of breath. She got a cough. Should be noted she also has a syncopal episode after a bowel movement. Patient admitted and given COVID protocol. Vitals/I&O Vitals/I&O: Vital Signs Date Time Temp Pulse Resp B/P (MAP) Pulse Ox O2 Delivery O2 Flow Rate FiO2 03/17/21 08:31 77 146/83 03/17/21 07:00 98.3 18 94 Nasal Cannula 9.0 98.3 I & O 03/16/21 03/16/21 03/17/21 15:00 23:00 07:00 Intake Total 400 ml Output Total 200 ml Balance 400 ml -200 ml Physical Exam Physical Exam: GENERAL: Alert, oriented female, not in distress. VITAL SIGNS: Stable. HEENT: Both pupils are round and reacting. No conjunctival lesion, no lesion in the mouth. NECK: Supple, no JVP, no lymphadenopathy. LUNGS: Clear. HEART: S1, S2, regular. ABDOMEN: Soft, nontender, no organomegaly. EXTREMITIES: No edema, no cyanosis. SKIN: Unremarkable. NEUROLOGIC: The patient is alert, awake, and appropriate. No focal neurologic deficit. General: Alert, Oriented X3, Cooperative Heart: Regular rate, Normal S1 Abdomen: Normal bowel sounds, Soft, No tenderness Extremities: No edema, Normal pulses Skin: No significant lesion Assessment and Plan Assessmemt and Plan Problems Medical Problems: (1) Acute respiratory failure due to COVID-19 Status: Acute (2) History of left bundle branch block (LBBB) Status: Acute (3) Hypoxia Status: Acute Comment Review of Relevant I have reviewed the following items iris (where applicable) has been applied. Medications: Current Medications Medications (Trade) Dose Ordered Sig/Dirk Route PRN Reason Start Time Stop Time Status Last Admin Dose Admin Calcium Carbonate/ Glycine (Tums) 500 mg PRN Q8HRS PRN PO INDIGESTION 03/16/21 16:00 03/16/21 17:49 DC 03/16/21 16:16 Calcium Carbonate/ Glycine (Tums) 500 mg PRN Q1HR PRN PO INDIGESTION 03/16/21 18:00 03/17/21 08:50 Multi-Ingredient Mouthwash/Gargle (Gi Cocktail) 20 ml PRN Q4HRS PRN PO HEARTBURN / GAS 03/16/21 18:00 03/16/21 17:53 Famotidine (Pepcid) 40 mg BID PO 03/16/21 18:00 03/17/21 08:32 Justifications for Admission Other Justification ASHLEY ALMAGUER MD Mar 17, 2021 10:22
--- NOTE | 2021-03-17 10:31 | NUR ---
SS following up with discharge planning. SS reviewed pt chart and discussed with pt RN. Pt is currently requiring oxygen at 9 liters nasal canula. COVID19 positive. Pt has no home oxygen. Pt on IV Solu-Medrol, IV Rocephin, and PO Doxycycline. Not ready. SS will continue to follow for discharge planning.
[2021-03-17 11:00] VITALS: BP 120/73
--- NOTE | 2021-03-17 11:04 | PDOC ---
PULMONARY PROGRESS NOTES DATE: 03/17/21 TIME: 11:02 Subjective Sitting up in bed, feeling better, currently on 8LNC, denies significant pain. Vitals Vital Signs Date Time Temp Pulse Resp B/P (MAP) Pulse Ox O2 Delivery O2 Flow Rate FiO2 03/17/21 08:31 77 146/83 03/17/21 07:00 98.3 18 94 Nasal Cannula 9.0 98.3 Comments Visual exam done, no paradoxical breathing, sitting comfortably in bed on 8L NC. General: Alert, No acute distress Neuro Exam: Alert Extremities: No Edema Skin: No Rashes Labs Laboratory Tests Test 03/16/21 06:10 Sodium Level 138 mmol/L (136-145) Potassium Level 4.9 mmol/L (3.5-5.1) Chloride Level 103 mmol/L (98-107) Carbon Dioxide Level 23 mmol/L (21-32) Anion Gap 12 (6-14) Blood Urea Nitrogen 19 mg/dL (7-20) Creatinine 0.9 mg/dL (0.6-1.0) Estimated GFR (Cockcroft-Gault) 78.1 BUN/Creatinine Ratio 21 (6-20) Glucose Level 167 mg/dL (70-99) Calcium Level 8.3 mg/dL (8.5-10.1) Total Bilirubin 0.4 mg/dL (0.2-1.0) Aspartate Amino Transf (AST/SGOT) 27 U/L (15-37) Alanine Aminotransferase (ALT/SGPT) 50 U/L (14-59) Alkaline Phosphatase 82 U/L (46-116) Total Protein 6.0 g/dL (6.4-8.2) Albumin 2.6 g/dL (3.4-5.0) Albumin/Globulin Ratio 0.8 (1.0-1.7) Medications Active Scripts Medications Dose Route/Sig Max Daily Dose Days Date Category Acetaminophen-Cod #3 Tablet (Acetaminophen/Codeine Phosphate) 1 Each Tablet 1 Tab PO PRN Q6HRS PRN 3 08/23/20 Rx Cyclobenzaprine Hcl 10 Mg Tablet 1 Tab PO TID PRN 5 08/23/20 Rx Amlodipine Besylate 10 Mg Tablet 10 Mg PO DAILY 07/09/20 Rx Quetiapine Fumarate 50 Mg Tablet 1 Tab PO QHS 30 07/07/20 Reported Bupropion Xl (Bupropion Hcl) 300 Mg Tab.er.24h 1 Tab PO QHS 30 07/07/20 Reported Paroxetine Hcl 20 Mg Tablet 1 Tab PO DAILY 30 07/07/20 Reported Meclizine Hcl 25 Mg Tablet 1 Tab PO TID 07/28/18 Rx Metoprolol Succinate ( Xl ) (Metoprolol Succinate) 25 Mg Tab.er.24h 25 Mg PO DAILY 30 03/03/18 Rx Topamax (Topiramate) 25 Mg Tablet 25 Mg PO BID 30 03/03/18 Rx Cetirizine Hcl 10 Mg Tablet 10 Mg PO DAILY 30 03/03/18 Rx Ativan (Lorazepam) 0.5 Mg Tablet 0.5 Mg PO TID 12/22/16 Rx Fluticasone Propionate Nasal [place] (Fluticasone Propionate) 16 Gm [place].susp 2 [place] NS DAILY 07/11/16 Reported Atorvastatin Calcium 20 Mg Tablet 1 Tab PO DAILY 07/11/16 Reported Impression . 1. Acute respiratory failure secondary to COVID-19 viral pneumonia. 2. COVID-19 [address] pneumonia[address] CT chest, compatible with a viral pneumonia. 4. Morbid obesity. 5. Hypertension. 6. Diabetes. 7. Mild history of asthma. Plan . RECOMME NDATIONS 1. Continue dexamethasone 2. Continue IV remdesivir. 3. o2 titration to Keep saturations 90% 4. DVT prophylaxis. GALINA AG MD Mar 17, 2021 11:04
[2021-03-17 15:00] VITALS: BP 115/72
[2021-03-17] MEDS: cefTRIAXone IV Push 1 GM VIAL. IVP SCH (15:13)
[2021-03-17 19:00] VITALS: BP 120/65
[2021-03-17] MEDS: PATCH REMOVAL. MC SCH (20:51)
[2021-03-17] MEDS: HYDROcodone/APAP 5/325MG 1 TAB TABLET PO PRN (21:20)
[2021-03-17 23:00] VITALS: BP 131/73
[2021-03-18 03:00] VITALS: BP 117/70
[2021-03-18 07:00] VITALS: BP 117/78
[2021-03-18] MEDS: IPRATROPIUM/ALBUTEROL 20/100mcg/INH INHALER. INH SCH ×4 (08:00→21:00)
--- NOTE | 2021-03-18 08:23 | PDOC ---
Infectious Disease Note Subjective: Subjective Patient feels better though desaturates with minimal activity Shortness of breath and cough improving Has some heartburn and nausea no abdominal pain or vomiting Remains on nasal o2 Vital Signs: Vital Signs Vital Signs Date Time Temp Pulse Resp B/P (MAP) Pulse Ox O2 Delivery O2 Flow Rate FiO2 03/18/21 03:00 98.1 73 20 117/70 (86) 96 Nasal Cannula 9.0 98.1 Physical Exam: PHYSICAL EXAM GENERAL: Alert, oriented female, not in distress. VITAL SIGNS: Stable. HEENT: Both pupils are round and reacting. No conjunctival lesion, no lesion in the mouth. NECK: Supple, no JVP, no lymphadenopathy. LUNGS: Clear. HEART: S1, S2, regular. ABDOMEN: Soft, nontender, no organomegaly. EXTREMITIES: No edema, no cyanosis. SKIN: Unremarkable. NEUROLOGIC: The patient is alert, awake, and appropriate. No focal neurologic deficit. Medications: Inpatient Meds: Medications reviewed. Objective: Assessment: IMPRESSION: 1. COVID-19 positive. 2. Pulmonary infiltrate. 3. Hypoxic respiratory failure. 4. Morbid obesity. 5. Diabetes. 6. Hypertension. 7. Bundle branch block. Plan: Plan of Care Continue supportive care on steroids and baricitinib s/p remdesivir DC ceftriaxone and doxycycline Monitor off antibiotics Heartburn management per primary AILYN HART MD Mar 18, 2021 08:22
[2021-03-18] MEDS: MULTIVITAMIN with MINERAL TABLET. PO SCH (08:26)
[2021-03-18] MEDS: ENOXAPARIN 40 MG/0.4 ML SYRINGE. SQ SCH ×2 (08:26→21:00)
[2021-03-18] MEDS: ASPIRIN CHEWABLE 81 MG TABLET. PO SCH (08:26)
[2021-03-18] MEDS: methylPREDNISolone SOD SUCC PF 40 MG/ML VIAL. IV SCH ×2 (08:26→21:00)
[2021-03-18] MEDS: LACTOBACILLUS RHAMNOSUS GG 1 CAPSULE. PO SCH ×2 (08:27→21:00)
[2021-03-18] MEDS: BARICITINIB 2 MG PO SCH (08:27)
[2021-03-18] MEDS: FAMOTIDINE 20 MG TABLET. PO SCH ×2 (08:27→21:00)
[2021-03-18 08:41] LABS: BASO % 0 % (0-3); EOS % 0 % (0-3); HEMATOCRIT 39.1 % (36.0-47.0); HEMOGLOBIN 12.7 g/dL (12.0-15.5); LYMPH # 0.9 x10^3/uL (1.0-4.8); LYMPH % 10 % (24-48); MEAN CORPUSCULAR HEMOGLOBIN 28 pg (25-35); MEAN CORPUSCULAR HGB CONC 33 g/dL (31-37); MEAN CORPUSCULAR VOLUME 85 fL (79-100); MONO # 0.3 x10^3/uL (0.0-1.1); MONO % 4 % (0-9); NEUT # 7.7 x10^3/uL (1.8-7.7); NEUT % 86 % (31-73); PLATELET COUNT 377 x10^3/uL (140-400); RED BLOOD COUNT 4.63 x10^6/uL (3.50-5.40); RED CELL DISTRIBUTION WIDTH 14.3 % (11.5-14.5)
[2021-03-18] MEDS: LIDOCAINE (700MG/PATCH) PATCH. TD SCH (08:53)
[2021-03-18] MEDS: DOXYCYCLINE HYCLATE 100 MG TABLET PO SCH (08:53)
[2021-03-18 11:00] VITALS: BP 121/76
--- NOTE | 2021-03-18 11:13 | PDOC ---
PULMONARY PROGRESS NOTES DATE: 03/18/21 TIME: 11:13 Subjective Sitting up in bed, feeling better, currently on 8LNC, denies significant pain. Vitals Vital Signs Date Time Temp Pulse Resp B/P (MAP) Pulse Ox O2 Delivery O2 Flow Rate FiO2 03/18/21 08:28 73 117/70 03/18/21 07:00 98.0 17 94 Nasal Cannula 9.0 98.0 Comments Visual exam done, no paradoxical breathing, sitting comfortably in bed on 8L NC. General: Alert, No acute distress Neuro Exam: Alert Extremities: No Edema Skin: No Rashes Labs Laboratory Tests Test 03/18/21 07:15 White Blood Count 9.0 x10^3/uL (4.0-11.0) Red Blood Count 4.63 x10^6/uL (3.50-5.40) Hemoglobin 12.7 g/dL (12.0-15.5) Hematocrit 39.1 % (36.0-47.0) Mean Corpuscular Volume 85 fL (79-100) Mean Corpuscular Hemoglobin 28 pg (25-35) Mean Corpuscular Hemoglobin Concent 33 g/dL (31-37) Red Cell Distribution Width 14.3 % (11.5-14.5) Platelet Count 377 x10^3/uL (140-400) Neutrophils (%) (Auto) 86 % (31-73) Lymphocytes (%) (Auto) 10 % (24-48) Monocytes (%) (Auto) 4 % (0-9) Eosinophils (%) (Auto) 0 % (0-3) Basophils (%) (Auto) 0 % (0-3) Neutrophils # (Auto) 7.7 x10^3/uL (1.8-7.7) Lymphocytes # (Auto) 0.9 x10^3/uL (1.0-4.8) Monocytes # (Auto) 0.3 x10^3/uL (0.0-1.1) Eosinophils # (Auto) 0.0 x10^3/uL (0.0-0.7) Basophils # (Auto) 0.0 x10^3/uL (0.0-0.2) Laboratory Tests Test 03/18/21 07:15 White Blood Count 9.0 x10^3/uL (4.0-11.0) Red Blood Count 4.63 x10^6/uL (3.50-5.40) Hemoglobin 12.7 g/dL (12.0-15.5) Hematocrit 39.1 % (36.0-47.0) Mean Corpuscular Volume 85 fL (79-100) Mean Corpuscular Hemoglobin 28 pg (25-35) Mean Corpuscular Hemoglobin Concent 33 g/dL (31-37) Red Cell Distribution Width 14.3 % (11.5-14.5) Platelet Count 377 x10^3/uL (140-400) Neutrophils (%) (Auto) 86 % (31-73) Lymphocytes (%) (Auto) 10 % (24-48) Monocytes (%) (Auto) 4 % (0-9) Eosinophils (%) (Auto) 0 % (0-3) Basophils (%) (Auto) 0 % (0-3) Neutrophils # (Auto) 7.7 x10^3/uL (1.8-7.7) Lymphocytes # (Auto) 0.9 x10^3/uL (1.0-4.8) Monocytes # (Auto) 0.3 x10^3/uL (0.0-1.1) Eosinophils # (Auto) 0.0 x10^3/uL (0.0-0.7) Basophils # (Auto) 0.0 x10^3/uL (0.0-0.2) Medications Active Scripts Medications Dose Route/Sig Max Daily Dose Days Date Category Acetaminophen-Cod #3 Tablet (Acetaminophen/Codeine Phosphate) 1 Each Tablet 1 Tab PO PRN Q6HRS PRN 3 08/23/20 Rx Cyclobenzaprine Hcl 10 Mg Tablet 1 Tab PO TID PRN 5 08/23/20 Rx Amlodipine Besylate 10 Mg Tablet 10 Mg PO DAILY 07/09/20 Rx Quetiapine Fumarate 50 Mg Tablet 1 Tab PO QHS 30 07/07/20 Reported Bupropion Xl (Bupropion Hcl) 300 Mg Tab.er.24h 1 Tab PO QHS 30 07/07/20 Reported Paroxetine Hcl 20 Mg Tablet 1 Tab PO DAILY 30 07/07/20 Reported Meclizine Hcl 25 Mg Tablet 1 Tab PO TID 07/28/18 Rx Metoprolol Succinate ( Xl ) (Metoprolol Succinate) 25 Mg Tab.er.24h 25 Mg PO DAILY 30 03/03/18 Rx Topamax (Topiramate) 25 Mg Tablet 25 Mg PO BID 30 03/03/18 Rx Cetirizine Hcl 10 Mg Tablet 10 Mg PO DAILY 30 03/03/18 Rx Ativan (Lorazepam) 0.5 Mg Tablet 0.5 Mg PO TID 12/22/16 Rx Fluticasone Propionate Nasal [place] (Fluticasone Propionate) 16 Gm [place].susp 2 [place] NS DAILY 07/11/16 Reported Atorvastatin Calcium 20 Mg Tablet 1 Tab PO DAILY 07/11/16 Reported Impression . 1. Acute respiratory failure secondary to COVID-19 viral pneumonia. 2. COVID-19 viral pneumonia. 3. [address]normal CT chest, compatible with a viral pneumonia. 4. Morbid obesity. 5. Hypertension. 6. Diabetes. 7. Mild history of asthma. Plan . RECOMME NDATIONS 1. Continue dexamethasone 2. Continue IV remdesivir. 3. o2 titration to Keep saturations 90% 4. DVT prophylaxis. GALINA AG MD Mar 18, 2021 11:13
--- NOTE | 2021-03-18 12:55 | PDOC ---
[employer] [facility] PROGRESS NOTE Date of Service DOS: DATE: 03/18/21 TIME: 12:55 Chief Complaint Chief Complaint shortness of air, respiratory failure, COVID-19 pneumonia, Arrhythmias, bronchitis, diabetes, hypertension, left bundle branch block, vertigo, hysterectomy, hernia repair, bladder repair. History of Present Illness History of Present Illness 03/18 Patient evaluated examined at bedside. Resting in bed still on 9 liters nasal cannula. Continue COVID treatment. Pulmonary and infectious diseases following. Plan discussed with bedside RN. 03/17 Seen and examined at bedside. Resting in bed, still on pretty high O2 settings. Continue current treatment weaning O2 as tolerated. If good progress may be able to d/c by end of week 03/16 Patient seen and examined at beside. She is doing well and hopeful for discharge soon. Patient is on a nasal cannula at 10L Discussed with RN Chart reviewed 03/15 Patient seen and examined Discussed with RN Chart reviewed Patient sitting in bed Affirms shortness of breath Blood pressure at 03:07 today was elevated 193/94 03/14 Patient seen and examined Discussed with RN Patient affirms shortness of Breath Patient sitting in bed Patient concerned about her daughter who she says was recently hospitalized with COVID 03/13 Patient seen and examined Discussed with RN Chart reviewed Patient sitting in bed with oxygen mask on at 9L She affirms cough and chest congestion, but denies any new concerns. 03/12 Patient evaluated examined at bedside. Resting in bed. Requiring high flow nasal cannula's afternoon continue COVID treatment. 03/11 Patient evaluated examined at bedside. She was on nasal cannula resting in bed. Continue COVID treatments which she is agreeable to. Pulmonary and infectious disease following. Plan of care discussed with bedside RN. HISTORY OF PRESENT ILLNESS: The patient is a pleasant 55-year-old female who tested positive for COVID-19 five days prior to admission. She had been trying to do outpatient therapy, but her symptoms worsened. She became short of breath. She got a cough. Should be noted she also has a syncopal episode after a bowel movement. Patient admitted and given COVID protocol. Vitals/I&O Vitals/I&O: Vital Signs Date Time Temp Pulse Resp B/P (MAP) Pulse Ox O2 Delivery O2 Flow Rate FiO2 03/18/21 08:28 73 117/70 03/18/21 07:00 98.0 17 94 Nasal Cannula 9.0 98.0 I & O 03/17/21 03/17/21 03/18/21 15:00 23:00 07:00 Intake Total 240 ml 200 ml 200 ml Output Total 300 ml Balance 240 ml -100 ml 200 ml Physical Exam Physical Exam: GENERAL: Alert, oriented female, not in distress. VITAL SIGNS: Stable. HEENT: Both pupils are round and reacting. No conjunctival lesion, no lesion in the mouth. NECK: Supple, no JVP, no lymphadenopathy. LUNGS: Clear. HEART: S1, S2, regular. ABDOMEN: Soft, nontender, no organomegaly. EXTREMITIES: No edema, no cyanosis. SKIN: Unremarkable. NEUROLOGIC: The patient is alert, awake, and appropriate. No focal neurologic deficit. General: Alert, Oriented X3, Cooperative Heart: Regular rate, Normal S1 Abdomen: Normal bowel sounds, Soft, No tenderness Extremities: No edema, Normal pulses Skin: No significant lesion Labs Labs: Laboratory Tests Test 03/18/21 07:15 White Blood Count 9.0 x10^3/uL (4.0-11.0) Red Blood Count 4.63 x10^6/uL (3.50-5.40) Hemoglobin 12.7 g/dL (12.0-15.5) Hematocrit 39.1 % (36.0-47.0) Mean Corpuscular Volume 85 fL (79-100) Mean Corpuscular Hemoglobin 28 pg (25-35) Mean Corpuscular Hemoglobin Concent 33 g/dL (31-37) Red Cell Distribution Width 14.3 % (11.5-14.5) Platelet Count 377 x10^3/uL (140-400) Neutrophils (%) (Auto) 86 % (31-73) Lymphocytes (%) (Auto) 10 % (24-48) Monocytes (%) (Auto) 4 % (0-9) Eosinophils (%) (Auto) 0 % (0-3) Basophils (%) (Auto) 0 % (0-3) Neutrophils # (Auto) 7.7 x10^3/uL (1.8-7.7) Lymphocytes # (Auto) 0.9 x10^3/uL (1.0-4.8) Monocytes # (Auto) 0.3 x10^3/uL (0.0-1.1) Eosinophils # (Auto) 0.0 x10^3/uL (0.0-0.7) Basophils # (Auto) 0.0 x10^3/uL (0.0-0.2) Assessment and Plan Assessmemt and Plan Problems Medical Problems: (1) Acute respiratory failure due to COVID-19 Status: Acute (2) History of left bundle branch block (LBBB) Status: Acute (3) Hypoxia Status: Acute Comment Review of Relevant I have reviewed the following items iris (where applicable) has been applied. Justifications for Admission Other Justification ASHLEY ALMAGUER MD Mar 18, 2021 12:55
[2021-03-18 15:00] VITALS: BP 133/73
[2021-03-18 19:46] VITALS: BP 119/65
[2021-03-18] MEDS: PATCH REMOVAL. MC SCH (21:00)
[2021-03-18 23:08] VITALS: BP 126/76
[2021-03-19 03:25] VITALS: BP 126/74
[2021-03-19 07:00] VITALS: BP 134/75
--- NOTE | 2021-03-19 08:24 | PDOC ---
Infectious Disease Note Subjective: Subjective Patient feels better Remains on O2 by nasal cannula Vital Signs: Vital Signs Vital Signs Date Time Temp Pulse Resp B/P (MAP) Pulse Ox O2 Delivery O2 Flow Rate FiO2 03/19/21 07:00 98.2 67 18 134/75 (94) 93 Nasal Cannula 9.0 98.2 Physical Exam: PHYSICAL EXAM GENERAL: Alert, oriented female, not in distress. VITAL SIGNS: Stable. HEENT: Both pupils are round and reacting. No conjunctival lesion, no lesion in the mouth. NECK: Supple, no JVP, no lymphadenopathy. LUNGS: Clear. HEART: S1, S2, regular. ABDOMEN: Soft, nontender, no organomegaly. EXTREMITIES: No edema, no cyanosis. SKIN: Unremarkable. NEUROLOGIC: The patient is alert, awake, and appropriate. No focal neurologic deficit. Medications: Inpatient Meds: Medications reviewed. Objective: Assessment: 1. COVID-19 positive. 2. Pulmonary infiltrate. 3. Hypoxic respiratory failure. 4. Morbid obesity. 5. Diabetes. 6. Hypertension. 7. Bundle branch block. Plan: Plan of Care Continue supportive care on steroids and baricitinib s/p remdesivir Monitor off antibiotics Will sign off Call with any questions AILYN HART MD Mar 19, 2021 08:24
[2021-03-19] MEDS: ASPIRIN CHEWABLE 81 MG TABLET. PO SCH (08:59)
[2021-03-19] MEDS: FAMOTIDINE 20 MG TABLET. PO SCH ×2 (09:00→21:19)
[2021-03-19] MEDS: BARICITINIB 2 MG PO SCH (09:00)
[2021-03-19] MEDS: MULTIVITAMIN with MINERAL TABLET. PO SCH (09:00)
[2021-03-19] MEDS: LACTOBACILLUS RHAMNOSUS GG 1 CAPSULE. PO SCH ×2 (09:00→21:19)
[2021-03-19] MEDS: ENOXAPARIN 40 MG/0.4 ML SYRINGE. SQ SCH ×2 (09:01→21:19)
[2021-03-19] MEDS: LIDOCAINE (700MG/PATCH) PATCH. TD SCH (09:02)
[2021-03-19] MEDS: methylPREDNISolone SOD SUCC PF 40 MG/ML VIAL. IV SCH ×2 (09:02→21:19)
[2021-03-19] MEDS: IPRATROPIUM/ALBUTEROL 20/100mcg/INH INHALER. INH SCH ×4 (09:02→21:18)
--- NOTE | 2021-03-19 10:29 | PDOC ---
[employer] [facility] PROGRESS NOTE Date of Service DOS: DATE: 03/19/21 TIME: 10:22 Chief Complaint Chief Complaint shortness of air, respiratory failure, COVID-19 pneumonia, Arrhythmias, bronchitis, diabetes, hypertension, left bundle branch block, vertigo, hysterectomy, hernia repair, bladder repair. History of Present Illness History of Present Illness 03/19 Patient evaluated examined at bedside. Titrated nasal cannula down to 5 L to see how she does with this while resting in the chair. Otherwise continue current. 03/18 Patient evaluated examined at bedside. Resting in bed still on 9 liters nasal cannula. Continue COVID treatment. Pulmonary and infectious diseases following. Plan discussed with bedside RN. 03/17 Seen and examined at bedside. Resting in bed, still on pretty high O2 settings. Continue current treatment weaning O2 as tolerated. If good progress may be able to d/c by end of week 03/16 Patient seen and examined at beside. She is doing well and hopeful for discharge soon. Patient is on a nasal cannula at 10L Discussed with RN Chart reviewed 03/15 Patient seen and examined Discussed with RN Chart reviewed Patient sitting in bed Affirms shortness of breath Blood pressure at 03:07 today was elevated 193/94 03/14 Patient seen and examined Discussed with RN Patient affirms shortness of Breath Patient sitting in bed Patient concerned about her daughter who she says was recently hospitalized with COVID 03/13 Patient seen and examined Discussed with RN Chart reviewed Patient sitting in bed with oxygen mask on at 9L She affirms cough and chest congestion, but denies any new concerns. 03/12 Patient evaluated examined at bedside. Resting in bed. Requiring high flow nasal cannula's afternoon continue COVID treatment. 03/11 Patient evaluated examined at bedside. She was on nasal cannula resting in bed. Continue COVID treatments which she is agreeable to. Pulmonary and infectious disease following. Plan of care discussed with bedside RN. HISTORY OF PRESENT ILLNESS: The patient is a pleasant 55-year-old female who tested positive for COVID-19 five days prior to admission. She had been trying to do outpatient therapy, but her symptoms worsened. She became short of breath. She got a cough. Should be noted she also has a syncopal episode after a bowel movement. Patient admitted and given COVID protocol. Vitals/I&O Vitals/I&O: Vital Signs Date Time Temp Pulse Resp B/P (MAP) Pulse Ox O2 Delivery O2 Flow Rate FiO2 03/19/21 09:01 67 134/75 03/19/21 08:05 Nasal Cannula 9.0 03/19/21 07:00 98.2 18 93 98.2 I & O 03/18/21 03/18/21 03/19/21 14:59 22:59 06:59 Intake Total 210 ml Balance 210 ml Physical Exam Physical Exam: GENERAL: Alert, oriented female, not in distress. VITAL SIGNS: Stable. HEENT: Both pupils are round and reacting. No conjunctival lesion, no lesion in the mouth. NECK: Supple, no JVP, no lymphadenopathy. LUNGS: Clear. HEART: S1, S2, regular. ABDOMEN: Soft, nontender, no organomegaly. EXTREMITIES: No edema, no cyanosis. SKIN: Unremarkable. NEUROLOGIC: The patient is alert, awake, and appropriate. No focal neurologic deficit. General: Alert, Oriented X3, Cooperative Heart: Regular rate, Normal S1 Abdomen: Normal bowel sounds, Soft, No tenderness Extremities: No edema, Normal pulses Skin: No significant lesion Assessment and Plan Assessmemt and Plan Problems Medical Problems: (1) Acute respiratory failure due to COVID-19 Status: Acute (2) History of left bundle branch block (LBBB) Status: Acute (3) Hypoxia Status: Acute Comment Review of Relevant I have reviewed the following items iris (where applicable) has been applied. Justifications for Admission Other Justification ASHLEY ALMAGUER MD Mar 19, 2021 10:29
[2021-03-19 11:00] VITALS: BP 134/75
--- NOTE | 2021-03-19 11:08 | NUR ---
SW following. Discussed with RN, pt from home with , 9L (does not use oxygen at home). COVID-19 positive. 6 minute walk when stable. SW will continue to follow.
[2021-03-19 15:00] VITALS: BP 118/56
[2021-03-19] MEDS: PATCH REMOVAL. MC SCH (21:00)
[2021-03-19 23:13] VITALS: BP 136/76
[2021-03-20 07:00] VITALS: BP 128/70
[2021-03-20] MEDS: LIDOCAINE (700MG/PATCH) PATCH. TD SCH (08:06)
[2021-03-20] MEDS: FAMOTIDINE 20 MG TABLET. PO SCH (08:07)
[2021-03-20] MEDS: methylPREDNISolone SOD SUCC PF 40 MG/ML VIAL. IV SCH (08:07)
[2021-03-20] MEDS: BARICITINIB 2 MG PO SCH (08:07)
[2021-03-20] MEDS: MULTIVITAMIN with MINERAL TABLET. PO SCH (08:07)
[2021-03-20] MEDS: LACTOBACILLUS RHAMNOSUS GG 1 CAPSULE. PO SCH (08:07)
[2021-03-20] MEDS: ASPIRIN CHEWABLE 81 MG TABLET. PO SCH (08:07)
[2021-03-20] MEDS: IPRATROPIUM/ALBUTEROL 20/100mcg/INH INHALER. INH SCH ×2 (08:08→12:07)
[2021-03-20] MEDS: ENOXAPARIN 40 MG/0.4 ML SYRINGE. SQ SCH (08:08)
--- NOTE | 2021-03-20 08:39 | PDOC ---
Infectious Disease Note Subjective: Subjective Patient feels better Remains on O2 by nasal cannula Vital Signs: Vital Signs Vital Signs Date Time Temp Pulse Resp B/P (MAP) Pulse Ox O2 Delivery O2 Flow Rate FiO2 03/20/21 08:07 79 128/70 03/20/21 08:00 Nasal Cannula 4.0 03/20/21 07:00 98.1 18 98 98.1 Physical Exam: PHYSICAL EXAM GENERAL: Alert, oriented female, not in distress. VITAL SIGNS: Stable. HEENT: Both pupils are round and reacting. No conjunctival lesion, no lesion in the mouth. NECK: Supple, no JVP, no lymphadenopathy. LUNGS: Clear. HEART: S1, S2, regular. ABDOMEN: Soft, nontender, no organomegaly. EXTREMITIES: No edema, no cyanosis. SKIN: Unremarkable. NEUROLOGIC: The patient is alert, awake, and appropriate. No focal neurologic deficit. Medications: Inpatient Meds: Medications reviewed. Objective: Assessment: 1. COVID-19 positive. 2. Pulmonary infiltrate. 3. Hypoxic respiratory failure. 4. Morbid obesity. 5. Diabetes. 6. Hypertension. 7. Bundle branch block. Plan: Plan of Care Continue supportive care on steroids and baricitinib s/p remdesivir Monitor off antibiotics Will sign off Call with any questions AILYN HART MD Mar 20, 2021 08:39
--- NOTE | 2021-03-20 09:30 | PDOC ---
Pulm-Progress Notes Date and Time Date of Service 03/20/21 Subjective Notes Notes patient resting comfortably in bed on 3L O2 NC. denies shortness of breath Vitals Vitals Vital Signs Date Time Temp Pulse Resp B/P (MAP) Pulse Ox O2 Delivery O2 Flow Rate FiO2 03/20/21 08:07 79 128/70 03/20/21 08:00 Nasal Cannula 4.0 03/20/21 07:00 98.1 18 98 98.1 Weight Weight [ ] Physical Exam General Appearance: no apparent distress Skin: warm, dry, no edema Respiratory: decreased breath sounds Heart: RRR Abdomen: soft Extremities: pulses present Neurology: alert, oriented Micro Micro Microbiology 03/10/21 Blood Culture - Final, Complete NO GROWTH AFTER 5 DAYS Diagnosis Problem List Problems Medical Problems: (1) Acute respiratory failure due to COVID-19 Status: Acute (2) History of left bundle branch block (LBBB) Status: Acute (3) Hypoxia Status: Acute Justicifation of Admission Dx: Justifications for Admission: Justification of Admission Dx: Yes GALINA AG MD Mar 20, 2021 09:30
--- NOTE | 2021-03-20 09:34 | PDOC ---
PULMONARY PROGRESS NOTES DATE: 03/20/21 TIME: 09:31 Subjective Sitting up in bed, tolerating 3L O2. denies shortness of breath. Vitals Vital Signs Date Time Temp Pulse Resp B/P (MAP) Pulse Ox O2 Delivery O2 Flow Rate FiO2 03/20/21 08:07 79 128/70 03/20/21 08:00 Nasal Cannula 4.0 03/20/21 07:00 98.1 18 98 98.1 Comments Visual exam done, no paradoxical breathing, sitting comfortably in bed on 8L NC. General: Alert, No acute distress Neuro Exam: Alert Extremities: No Edema Skin: No Rashes Medications Active Scripts Medications Dose Route/Sig Max Daily Dose Days Date Category Acetaminophen-Cod #3 Tablet (Acetaminophen/Codeine Phosphate) 1 Each Tablet 1 Tab PO PRN Q6HRS PRN 3 08/23/20 Rx Cyclobenzaprine Hcl 10 Mg Tablet 1 Tab PO TID PRN 5 08/23/20 Rx Amlodipine Besylate 10 Mg Tablet 10 Mg PO DAILY 07/09/20 Rx Quetiapine Fumarate 50 Mg Tablet 1 Tab PO QHS 30 07/07/20 Reported Bupropion Xl (Bupropion Hcl) 300 Mg Tab.er.24h 1 Tab PO QHS 30 07/07/20 Reported Paroxetine Hcl 20 Mg Tablet 1 Tab PO DAILY 30 07/07/20 Reported Meclizine Hcl 25 Mg Tablet 1 Tab PO TID 07/28/18 Rx Metoprolol Succinate ( Xl ) (Metoprolol Succinate) 25 Mg Tab.er.24h 25 Mg PO DAILY 30 03/03/18 Rx Topamax (Topiramate) 25 Mg Tablet 25 Mg PO BID 30 03/03/18 Rx Cetirizine Hcl 10 Mg Tablet 10 Mg PO DAILY 30 03/03/18 Rx Ativan (Lorazepam) 0.5 Mg Tablet 0.5 Mg PO TID 12/22/16 Rx Fluticasone Propionate Nasal [place] (Fluticasone Propionate) 16 Gm [place].susp 2 [place] NS DAILY 07/11/16 Reported Atorvastatin Calcium 20 Mg Tablet 1 Tab PO DAILY 07/11/16 Reported Impression . 1. Acute respiratory failure secondary to COVID-19 viral pneumonia. 2. COVID-[address] chest, compatible with a viral pneumonia. 4. Morbid obesity. 5. Hypertension. 6. Diabetes. 7. Mild history of asthma. Plan . RECOMMENDATIONS 1. Continue steroids 2. s/p IV remdesivir. 3. o2 titration to Keep saturations 90% 4. DVT prophylaxis. GALINA AG MD Mar 20, 2021 09:34
[2021-03-20 11:00] VITALS: BP 163/94
[2021-03-20] MEDS ORDERED: PRED20TA PO (12:45)
--- NOTE | 2021-03-20 12:47 | DISCH ---
DISCHARGE INSTRUCTIONS Condition on Discharge Condition on Discharge: Stable Activity After Discharge Activity Instructions for Disc: Activity as tolerated Lifting Instructions after Dis: No heavy lifting, No pulling or pushing, Do not lift >10 pounds Exercise Instruction after Dis: Walk 10 min, 3 x per day, Progress as tolerated Driving Instructions after Dis: Do not drive, Do not drive today Weight Bearing Status after Di: As tolerated Diet after Discharge Diet after Discharge: Cardiac Diet Texture: Regular Liquid Texture: Thin Liquid Swallowing Supervision: None needed Checks after Discharge Checks after discharge: Check blood press - daily Contacting the DR. after DC Call your doctor for: If your condition worsens Follow-Up Follow up with: PCP within 2 weeks of discharge Treatment/Equipment after DC Adaptive Equipment Issued: None PACO LEE MD Mar 20, 2021 12:47
--- NOTE | 2021-03-20 12:48 | NUR ---
SW following. Discussed with RN, 6 minute walk completed, pt needing 2L at rest and 3L with activity. Referral faxed to [facility], awaiting approval to give tank. Awaiting discharge orders. SW will continue to follow.
--- NOTE | 2021-03-20 13:45 | NUR ---
Discharge Note: GABRIELLA TEJADA Discharge instructions and discharge home medications reviewed with Patient and a copy given. All questions have been answered and understanding verbalized. The following instructions and handouts were given: discharge instructions, new prescription, education, oxygen and follow up recommendations. Discontinued lines and drains: Peripheral IV discontinued intact. Patient discharged to Home or Self Care with Family Member via Wheelchair off unit by [facility].
--- NOTE | 2021-03-22 16:41 | PDOC3 ---
[facility]-Discharge Summary Date of Admission: Date of Admission: Mar 10, 2021 Date of Discharge: Date of Discharge: Mar 20, 2021 Discharge Diagnosis: Discharge Diagnosis: shortness of air, respiratory failure, COVID-19 pneumonia, Arrhythmias, bronchitis, diabetes, hypertension, left bundle branch block, vertigo, hysterectomy, hernia repair, bladder repair. Hospital Course: Hospital Course: 55-year-old female who tested positive for COVID-19 five days prior to admission. She had been trying to do outpatient therapy, but her symptoms worsened. She became short of breath. She got a cough. Should be noted she also has a syncopal episode after a bowel movement. Patient admitted and given COVID protocol. Clinically stable by day of discharge. Rest of hospital course was uneventful 03/19 Patient evaluated examined at bedside. Titrated nasal cannula down to 5 L to see how she does with this while resting in the chair. Otherwise continue current. 03/18 Patient evaluated examined at bedside. Resting in bed still on 9 liters nasal cannula. Continue COVID treatment. Pulmonary and infectious diseases following. Plan discussed with bedside RN. 03/17 Seen and examined at bedside. Resting in bed, still on pretty high O2 settings. Continue current treatment weaning O2 as tolerated. If good progress may be able to d/c by end of week 03/16 Patient seen and examined at beside. She is doing well and hopeful for discharge soon. Patient is on a nasal cannula at 10L Discussed with RN Chart reviewed 03/15 Patient seen and examined Discussed with RN Chart reviewed Patient sitting in bed Affirms shortness of breath Blood pressure at 03:07 today was elevated 193/94 03/14 Patient seen and examined Discussed with RN Patient affirms shortness of Breath Patient sitting in bed Patient concerned about her daughter who she says was recently hospitalized with COVID 03/13 Patient seen and examined Discussed with RN Chart reviewed Patient sitting in bed with oxygen mask on at 9L She affirms cough and chest congestion, but denies any new concerns. 03/12 Patient evaluated examined at bedside. Resting in bed. Requiring high flow nasal cannula's afternoon continue COVID treatment. 03/11 Patient evaluated examined at bedside. She was on nasal cannula resting in bed. Continue COVID treatments which she is agreeable to. Pulmonary and infectious disease following. Plan of care discussed with bedside RN. Disposition: Disposition/Orders: D/C to Home Activity: Activity: Resume previous activity Diet: Diet: Cardiac Medications: Home Meds Active Scripts Prednisone (PREDNISONE) 20 Mg Tablet, 20 MG PO DAILY for prednisone taper for 5 Days, #5 TAB Prov:PACO LEE MD 03/20/21 Acetaminophen With Codeine (ACETAMINOPHEN-COD #3 TABLET) 1 Each Tablet, 1 TAB PO PRN Q6HRS PRN for PAIN for 3 Days, #10 TAB Prov:ANAI SIMMONS MD 08/23/20 Cyclobenzaprine Hcl (CYCLOBENZAPRINE HCL) 10 Mg Tablet, 1 TAB PO TID PRN for MUSCLE PAIN for 5 Days, #15 TAB Prov:ANAI SIMMONS MD 08/23/20 Amlodipine Besylate (AMLODIPINE BESYLATE) 10 Mg Tablet, 10 MG PO DAILY for HTN, #30 TAB 2 Refills Prov:NAILA SESAY MD 07/09/20 Meclizine Hcl (MECLIZINE HCL) 25 Mg Tablet, 1 TAB PO TID for dizziness, #20 TAB Prov:AUDIE TAVAREZ MD 07/28/18 Metoprolol Succinate (METOPROLOL SUCCINATE ( XL )) 25 Mg Tab.er.24h, 25 MG PO DAILY for BLOOD PRESSURE for 30 Days, #30 TAB.SR Prov:EDILSON BARKSDALE MD 03/03/18 Topiramate (TOPAMAX) 25 Mg Tablet, 25 MG PO BID for HEADACHE PREVENTION for 30 Days, #60 TAB Prov:EDILSON BARKSDALE MD 03/03/18 Lorazepam (ATIVAN) 0.5 Mg Tablet, 0.5 MG PO TID for DIZZINESS, #10 TAB Prov:JASMIN SINGER MD 12/22/16 Reported Medications Quetiapine Fumarate (QUETIAPINE FUMARATE) 50 Mg Tablet, 1 TAB PO QHS for Mood for 30 Days, #30 11 Refills 07/07/20 Bupropion Hcl (BUPROPION XL) 300 Mg Tab.er.24h, 1 TAB PO QHS for Mood for 30 Days, #30 11 Refills 07/07/20 Paroxetine Hcl (PAROXETINE HCL) 20 Mg Tablet, 1 TAB PO DAILY for Mood for 30 Days, #30 11 Refills 07/07/20 Fluticasone Propionate (FLUTICASONE PROPIONATE NASAL SPRAY) 16 Gm [place].susp, 2 SPRAY NS DAILY for nasal allergy, #1 INHALER 11 Refills 07/11/16 Atorvastatin Calcium (ATORVASTATIN CALCIUM) 20 Mg Tablet, 1 TAB PO DAILY for Hypercholesterolemia, #30 TAB 5 Refills 07/11/16 Discontinued Scripts Cetirizine Hcl (CETIRIZINE HCL) 10 Mg Tablet, 10 MG PO DAILY for CONGESTION for 30 Days, #30 TAB Prov:EDILSON BARKSDALE MD 03/03/18 Scheduled Amlodipine Besylate (Amlodipine Besylate), 10 MG PO DAILY Atorvastatin Calcium (Atorvastatin Calcium), 1 TAB PO DAILY, (Reported) Bupropion Hcl (Bupropion Xl), 1 TAB PO QHS, (Reported) Fluticasone Propionate (Fluticasone Propionate Nasal [place]), 2 SPRAY NS DAILY, (Reported) Lorazepam (Ativan), 0.5 MG PO TID Meclizine Hcl (Meclizine Hcl), 1 TAB PO TID Metoprolol Succinate (Metoprolol Succinate ( Xl )), 25 MG PO DAILY Paroxetine Hcl (Paroxetine Hcl), 1 TAB PO DAILY, (Reported) Prednisone (Prednisone), 20 MG PO DAILY Quetiapine Fumarate (Quetiapine Fumarate), 1 TAB PO QHS, (Reported) Topiramate (Topamax), 25 MG PO BID Scheduled PRN Acetaminophen With Codeine (Acetaminophen-Cod #3 Tablet), 1 TAB PO PRN Q6HRS PRN for PAIN Cyclobenzaprine Hcl (Cyclobenzaprine Hcl), 1 TAB PO TID PRN for MUSCLE PAIN Discontinued Medications Cetirizine Hcl (Cetirizine Hcl), 10 MG PO DAILY Total Time: Total Time: Total time spent was 33 minutes in preparing scripts, discharge planning with SWI and RN and preparing this discharge summary Patient seen and examined on day of discharge. No acute abnormal findings. Justicifation of Admission Dx: Justifications for Admission: Justification of Admission Dx: Yes PACO LEE MD Mar 22, 2021 16:40
== END 2021-03-20 13:45 | disposition home or self-care (01) | DRG 177 ==
LOC: ER 09:28 → 5 NORTH 12:28
PROVIDERS: ADMIT Internal Medicine; ATTEND Internal Medicine
PROC: XW033E5 Introduction of Remdesivir Anti-infective into Peripheral Vein, Percutaneous Approach, New Technology Group 5 (ICD-10-PCS; principal; 2021-03-11)
PROC: 5A0935A Assistance with Respiratory Ventilation, Less than 24 Consecutive Hours, High Flow/Velocity Cannula (ICD-10-PCS; 2021-03-12)
PROC: 5A0935A Assistance with Respiratory Ventilation, Less than 24 Consecutive Hours, High Flow/Velocity Cannula (ICD-10-PCS; 2021-03-13)
DX: U07.1 COVID-19 (principal); J96.01 Acute respiratory failure with hypoxia; J12.82 Pneumonia due to coronavirus disease 2019; Z68.41 Body mass index [BMI] 40.0-44.9, adult; E11.9 Type 2 diabetes mellitus without complications; E66.01 Morbid (severe) obesity due to excess calories; E78.00 Pure hypercholesterolemia, unspecified; I10 Essential (primary) hypertension; I45.4 Nonspecific intraventricular block; J45.909 Unspecified asthma, uncomplicated; Z83.3 Family history of diabetes mellitus; Z90.710 Acquired absence of both cervix and uterus
CPT/HCPCS: 36415; 71045; 71275; 72131; 80053; 81001; 83605; 83690; 83735; 85007; 85025; 87040; 93005; 94618; 96361; 96374; 96376; J0696; J1650; J2920; J3010; J3490; J7030; J7050; J7060; Q9967; 99285-25; G0378